=== PATIENT | male | born 1935 | race Caucasian/White ===

== ENCOUNTER 2016-11-13 14:42 | Inpatient (IN) ==
[2016-11-13 15:42] LABS: Basophils % 0.4 % (0.0-0.8); Eosinophils # 0.1 10*3/uL (0.0-0.87); Eosinophils % 1.3 % (0.00-10.9); Hematocrit 39.7 VOL% (42.0-52.0); Hemoglobin 13.1 GM/DL (14.0-18.0); Immature Granulocytes % 0.7 %; Immature Granulocytes Absolute 0.06 #; Lymphocytes # 2.6 10*3/uL (1.4-4.0); Lymphocytes % 28.7 % (21.2-54.2); Mean Corpuscular Hemoglobin 29 PG (27-34); Mean Corpuscular Volume 88.6 FL (87-102); Mean Platelet Volume 10.3 FL (9.6-12.0); Monocytes % 10.8 % (1.7-12.7); Neutrophils # 5.2 10*3/uL (1.4-7.4); Neutrophils % 58.1 % (38.7-73.9); Platelet Count 270 T/CUMM (130-400); Red Blood Count 4.48 MC/CUMM (3.8-5.5); Red Cell Distribution Width 13.9 % (9.3-17.3); White Blood Count 8.9 T/CUMM (4-12)
--- NOTE | 2016-11-13 16:51 | Emergency Department Note ---
Arrival - Arrival Chief Complaint: Extremity Problem Stated Complaint: INFLAMMED TOE ED Nursing Triage Note: c/o Having right great toe pain.,states he was evaluated by last evening and was told that he could be admitted last evening or try going home., states the pain is hurting worse today., patient has toe wrapped at time of triage., 3+ right pedal pulse noted at time of triage., Mode of Arrival: Wheelchair Limitations: No Limitations Source: Patient Time Seen by Provider: 11/13/16 16:51 - History of Present Illness HPI Narrative: This 81-year-old white male presents with a history of persistent painful diabetic ulcer at the site of right great toe nail removal for admission to Dr. Nunes's service for further evaluation and treatment. The patient originally wore a pair of shoes to [employer] that he had not worn for some time only to come home and find a bruise underneath the toenail which progressed to an infection which progressed to removal of the toenail which progressed to the current state of affairs. He denies any chills or fever with this situation. The patient is diabetic but denies any significant problems with diabetic control during this ordeal. Currently appears medically stable. Allergies/Adverse Reactions: Allergies Allergy/AdvReac Type Severity Reaction Status Date / Time covert Allergy Severe ANAPHYLAXIS Uncoded 11/13/16 14:54 Home Medications: Home Medications Medication Instructions Recorded Confirmed Type Amitriptyline [Elavil] 75 mg PO BEDTIME 12/24/14 12/24/14 History Aspirin [Ecotrin] 325 mg PO DAILY 12/24/14 12/24/14 History Carvedilol 25 mg PO BID 12/24/14 12/24/14 History Clopidogrel [Plavix] 75 mg PO DAILY 12/24/14 12/24/14 History Furosemide Tab [Lasix Tab] 40 mg PO DAILY 12/24/14 12/24/14 History Insulin Lispro Prot/Lisp 75/25 75 unit SUBCUT BIDAC 12/24/14 12/24/14 History [HumaLOG Mix 75/25] Levothyroxine Tab [Synthroid Tab] 25 mcg PO DAILY@0700 12/24/14 12/24/14 History Lisinopril 2.5 mg PO BEDTIME 12/24/14 12/24/14 History Lovastatin 40 mg PO BEDTIME 12/24/14 12/24/14 History Magnesium Oxide [Magox 400] 400 mg PO BID 12/24/14 12/24/14 History Niacin [Slo-Niacin] 500 mg PO BID 12/24/14 12/24/14 History Nitroglycerin [Nitroglycerin SL 0.4 mg SL Q5M PRN 12/24/14 12/24/14 History Tab] [place]-3 Fatty Acids [Fish Oil] 1,000 mg PO BID 12/24/14 12/24/14 History Ranitidine Tab [Zantac Tab] 150 mg PO DAILY 12/24/14 12/24/14 History Spironolactone [Aldactone] 12.5 mg PO DAILY 12/24/14 12/24/14 History Warfarin Sodium 7.5 mg PO DAILY 12/24/14 12/24/14 History Diltiazem Cd Cap [Cardizem CD] 120 mg PO DAILY #30 capsule 01/01/15 Rx Levofloxacin Tab [Levaquin Tab] 500 mg PO DAILY #7 tablet 01/01/15 Rx Warfarin [Coumadin] 7.5 mg PO DAILY@1800 tablet 01/01/15 Rx Review of System - Review of System 12 point system: reviewed and no additional remarkable complaints except as stated - Review of System Constitutional: Present: as per HPI Musculoskeletal: Present: as per HPI Skin: Present: as per HPI Endocrine: Present: as per HPI Medical,Surgical,& Family Hx - Medical History Cardio: History of: Cardiac Dysrhythmia, CHF, CAD, Hypertension, ID, PVD ( stents in his lower extremities), Cardiovascular Problems HEENT: History of: Eye Problem Endocrine: History of: Diabetes Mellitus (IDDM), Dyslipidemia, Thyroid Disorder Genitourinary: History of: Kidney Stones, Prostate Problems Gastrointestinal: History of: Hemorrhoids, Polyps Other: History of: Cancer (prostate) - Surgical History Cardiac Surgeries: Sugical HX of: Cardiac Catheterization, Cardiac Surgery HEENT Surgeries: Surgical HX of: Eye Surgery (cataracts) Abdominal Surgeries: Surgical HX of: Cholecystectomy, Colonoscopy, Hernia Repair Orthopedic Surgeries: Surgical HX of;: Total Knee Replacement (right knee replacement May 2014) - Family History Family History: Reports;: Family Cancer (sister, brother), Family Heart Disease (brother, mother), Family Hypertension (brother, mother) Denies;: Family Anesthesia Reaction, Family Psychiatric Problems, Family Stroke - Social History Smoking Status: Former smoker Frequency of Alcohol Use: None Type of Drug Use: None Exam Physical Examination: GENERAL: Well developed, well nourished elderly white male in no acute distress. HEENT: Normocephalic. No trauma. Moist mucous membranes. EOMI. PERRLA. ENT NML NECK: Supple. No adenopathy. CARDIAC: Regular. No murmurs. Heart rate 92 CHEST: Clear to auscultation. No respiratory distress. O2 sat 96% ABDOMEN: Soft. Nontender. Active bowel sounds. EXTREMITIES: No trauma. Normal ROM. No pedal edema. Distal pulses intact. Clarita size ulcer on the volar surface of the right great toe nailbed SKIN: No diaphoresis. No rash. As above NEURO: Alert. Neuro intact. No focal deficits. Vital Signs: Vital Signs Temperature 98.0 F 11/13/16 16:21 Pulse Rate 89 11/13/16 16:21 Respiratory Rate 18 11/13/16 16:21 Blood Pressure 151/87 11/13/16 16:21 O2 Sat by Pulse Oximetry 100 11/13/16 16:21 Course - Reevaluation(s) Reevaluation #1: Patient presents for admission Results - Labs CBC & BMP: 11/13/16 15:31 Disposition Clinical Impression: Diabetic toe Case discussed with: patient, patient's family Disposition: Still a Patient Condition: Stable Time of Disposition: 16:57
[2016-11-13] MEDS ORDERED: DEXTROSE 50% 25 GM/50 ML SYRINGE IV PRN (16:59)
[2016-11-13] MEDS ORDERED: GLUCAGON 1 MG VIAL IM PRN (16:59)
[2016-11-13] MEDS ORDERED: ONDANSETRON 4 MG/2 ML VIAL IV PRN (16:59)
[2016-11-13] MEDS ORDERED: VANCOMYCIN INJ 1,000 MG in SODIUM CHLORIDE 0.9% 250 ML IV SCH (17:00)
[2016-11-13 17:11] LABS: Albumin 3.4 G/DL (3.4-5.0); Bilirubin,Total 0.4 MG/DL (0.2-1.0); Calcium 9.1 MG/DL (8.5-10.1); Osmolality,Calculated 283.7 MOS/KG (273-304); Potassium 4.5 MMOL/L (3.5-5.1); Total Protein 8.1 G/DL (6.4-8.3)
--- NOTE | 2016-11-13 18:34 | XRay Report ---
History: Great toe pain and soft tissue ulcer Date: 11/13/2016 Study: Right foot 3 views Comparison exam: No previous There are some small focal patchy areas of lytic change of the tuft of the distal phalanx of the great toe compatible with osteomyelitis. There is soft tissue swelling in this area. There is no radiopaque foreign body. There is mild plantar calcaneal spur formation. There is moderate regional arterial vascular calcification. Impression: Evidence of osteomyelitis involving the tuft of the distal phalanx of the great toe PROCEDURE INTERPRETED AT [facility] DEPARTMENT OF RADIOLOGY Final Report Signed by: Dr. Amarilys Child
[2016-11-13 19:29] LABS: INR 1.9
[2016-11-13 19:33] LABS: PT Patient Result 21.2 SECS
[2016-11-13] MEDS ORDERED: WARFARIN 7.5 MG TABLET PO SCH (21:00)
[2016-11-13] MEDS: PIPERACILLIN/TAZOBACTAM 3,375 MG in SODIUM CHLORIDE 0.9% 100 ML IV SCH (21:22)
[2016-11-13] MEDS: INSULIN REGULAR 100 UNIT/ML SUBCUT SCH (21:28)
[2016-11-13] MEDS: AMITRIPTYLINE 75 MG TABLET PO SCH (21:29)
[2016-11-13] MEDS: CARVEDILOL 25 MG TABLET PO SCH (21:29)
[2016-11-13] MEDS: LOVASTATIN 20 MG TABLET PO SCH (21:29)
[2016-11-13] MEDS: FAMOTIDINE 20 MG TABLET PO SCH (21:29)
[2016-11-14] MEDS: VANCOMYCIN INJ 1,500 MG in SODIUM CHLORIDE 0.9% 500 ML IV SCH ×2 (01:19→17:16)
[2016-11-14] MEDS: PIPERACILLIN/TAZOBACTAM 3,375 MG in SODIUM CHLORIDE 0.9% 100 ML IV SCH ×2 (04:07→12:26)
[2016-11-14 08:04] LABS: Basophils % 0.5 % (0.0-0.8); Eosinophils # 0.1 10*3/uL (0.0-0.87); Eosinophils % 1.2 % (0.00-10.9); Hemoglobin 11.3 GM/DL (14.0-18.0); Immature Granulocytes % 0.8 %; Immature Granulocytes Absolute 0.07 #; Lymphocytes # 2.2 10*3/uL (1.4-4.0); Lymphocytes % 25.3 % (21.2-54.2); Mean Corpuscular HGB Conc 33.2 GM/DL (32-36); Mean Corpuscular Hemoglobin 29 PG (27-34); Mean Corpuscular Volume 88.3 FL (87-102); Mean Platelet Volume 10.9 FL (9.6-12.0); Monocytes % 12.1 % (1.7-12.7); Neutrophils # 5.2 10*3/uL (1.4-7.4); Neutrophils % 60.1 % (38.7-73.9); Platelet Count 238 T/CUMM (130-400); Red Blood Count 3.85 MC/CUMM (3.8-5.5); Red Cell Distribution Width 14.1 % (9.3-17.3); White Blood Count 8.6 T/CUMM (4-12)
[2016-11-14] MEDS: INSULIN LISPRO PROTAMINE/LISPRO 75/25 100 UNIT/ML SUBCUT SCH ×2 (08:10→17:15)
[2016-11-14] MEDS: INSULIN REGULAR 100 UNIT/ML SUBCUT SCH ×4 (08:11→21:50)
[2016-11-14] MEDS: FUROSEMIDE 40 MG TABLET PO SCH (08:12)
[2016-11-14] MEDS: CLOPIDOGREL 75 MG TABLET PO SCH (08:12)
[2016-11-14] MEDS: ASPIRIN CHEW 81 MG TABLET PO SCH (08:12)
[2016-11-14] MEDS: FAMOTIDINE 20 MG TABLET PO SCH ×2 (08:13→21:50)
[2016-11-14] MEDS: LISINOPRIL 2.5 MG TABLET PO SCH (08:13)
[2016-11-14] MEDS: SPIRONOLACTONE 25 MG TABLET PO SCH (08:13)
[2016-11-14] MEDS: CARVEDILOL 25 MG TABLET PO SCH ×2 (08:13→21:50)
[2016-11-14 08:22] LABS: Partial Thromboplastin Time 37.6 SECS (0-40)
[2016-11-14 08:27] LABS: INR 1.9
[2016-11-14 08:28] LABS: PT Patient Result 20.8 SECS
--- NOTE | 2016-11-14 09:24 | General Surg History&Physical ---
Assessment and Plan - Time spent with patient Time spent with patient: Greater than 30 minutes (1) Osteomyelitis Status: Acute Assessment and plan: Patient appears to have osteomyelitis of his distal right first phalanx. I have discussed the fact that this will be very difficult to clear up and is not cleared up with several weeks of wound care and antibiotics. I have recommended amputation of his great toe. He is considering this. In the meantime we are treating him with IV antibiotics. Current Visit: Yes Qualifiers: Osteomyelitis location: unspecified site (2) Peripheral arterial disease Status: Acute Assessment and plan: He does not appear to be having acute ischemia. I will have Dr. Nunes see him tomorrow. Current Visit: No (3) Diabetes mellitus Status: Acute Assessment and plan: We will consult hospital medicine to help with management of his multiple medical problems including diabetes Current Visit: No Qualifiers: Diabetes mellitus type: type 2 History of Present Illness Chief complaint: Infected right great toe History of present illness: Mr. Santa is a 81 year old male Who for several weeks his had problems with infection in his right great toe. He was initially treated by Dr. Green with podiatry and had his toenail removed. He then had discoloration developed at the tip of this toe. He has had worsening redness in appearance to his toe over the last few days. I saw him a couple of days ago and offered admission at that time which he declined. His family brought him to the emergency room last night. I feel like his toe is looking worse. He has not had fever or chills. He does not really have any pain in his toe. Home Medications Medication Instructions Recorded Confirmed Type Aspirin [Ecotrin] 325 mg PO QAM 12/24/14 11/13/16 History Carvedilol 25 mg PO BID 12/24/14 11/13/16 History Clopidogrel [Plavix] 75 mg PO QAM 12/24/14 11/13/16 History Furosemide Tab [Lasix Tab] 40 mg PO QAM 12/24/14 11/13/16 History Insulin Lispro Prot/Lisp 75/25 82 unit SUBCUT BIDAC 12/24/14 11/13/16 History [HumaLOG Mix 75/25] Levothyroxine Tab [Synthroid Tab] 125 mcg PO DAILY@0700 12/24/14 11/14/16 History Lisinopril 2.5 mg PO BEDTIME 12/24/14 11/13/16 History Lovastatin 40 mg PO BEDTIME 12/24/14 11/13/16 History Magnesium Oxide [Magox 400] 400 mg PO BID 12/24/14 11/13/16 History Niacin [Slo-Niacin] 500 mg PO BID 12/24/14 11/13/16 History Nitroglycerin [Nitroglycerin SL 0.4 mg SL Q5M PRN 12/24/14 11/13/16 History Tab] [place]-3 Fatty Acids [Fish Oil] 1,000 mg PO BID 12/24/14 11/13/16 History Ranitidine Tab [Zantac Tab] 150 mg PO QAM 12/24/14 11/13/16 History Spironolactone [Aldactone] 12.5 mg PO QAM 12/24/14 11/13/16 History Warfarin [Coumadin] 7.5 mg PO DAILY@1800 tablet 01/01/15 11/13/16 Rx Amitriptyline HCl [Amitriptyline 100 mg PO BEDTIME 11/13/16 11/13/16 History HCl] Allergies Allergy/AdvReac Type Severity Reaction Status Date / Time covert Allergy Severe ANAPHYLAXIS Uncoded 11/13/16 14:54 Medical,Surgical,& Family Hx - Medical History Cardio: History of: Cardiac Dysrhythmia, CHF, CAD, Hypertension, [place], PVD ( stents in his lower extremities), Cardiovascular Problems Neurology: History of: Peripheral Neuropathy HEENT: History of: Eye Problem (CATARACTS REMOVED) Endocrine: History of: Diabetes Mellitus (IDDM), Dyslipidemia, Thyroid Disorder Genitourinary: History of: Kidney Stones, Prostate Problems (CANCER 2012) Gastrointestinal: History of: Hemorrhoids, Polyps Other: History of: Cancer (prostate 2012) - Surgical History Cardiac Surgeries: Sugical HX of: Cardiac Catheterization, Cardiac Surgery ( CABG X2) HEENT Surgeries: Surgical HX of: Eye Surgery (cataracts) Abdominal Surgeries: Surgical HX of: Appendectomy, Cholecystectomy, Colonoscopy , Hernia Repair Orthopedic Surgeries: Surgical HX of;: Total Knee Replacement (right knee replacement May 2014) - Family History Family History: Reports;: Family Cancer (sister, brother), Family Heart Disease (brother, mother), Family Hypertension (brother, mother) Denies;: Family Anesthesia Reaction, Family Psychiatric Problems, Family Stroke - Social History Smoking Status: Former smoker Frequency of Alcohol Use: None Type of Drug Use: None Exam - Constitutional Vitals: Period Temp Pulse Resp BP Sys/Reyes Pulse Ox Last 24 Hr 97.3 F-98.8 F 65-97 16-19 117-151/47-87 95-100 General appearance: no acute distress - Head Head exam: Present: normocephalic - Eye Eye exam: Absent: scleral icterus - ENT Mouth exam: Present: normal voice - Respiratory Respiratory exam: Present: clear to auscultation bilaterally. Absent: accessory muscle use - Cardiovascular Cardiovascular exam: Present: RRR - GI/Abdominal GI/Abdominal exam: Present: normal bowel sounds, soft. Absent: tenderness, rebound - Extremities Exam Extremities exam: Absent: edema - Neurological Exam Neurological exam: Present: alert, oriented X3. Absent: motor sensory deficit Speech: Present: normal - Skin Skin exam: Present: normal color - Constitutional Constitutional: Absent: chills, fever(s), weight loss - Cardiovascular Cardiovascular: Absent: chest pain at rest, chest pain with activity, dyspnea, dyspnea on exertion - Respiratory Respiratory: Absent: dyspnea, hemoptysis, dyspnea on exertion - Gastrointestinal Gastrointestinal: Absent: abdominal pain, hematemesis, hematochezia, nausea, vomiting, jaundice - Genitourinary Genitourinary: Absent: hematuria - Neurological Neurological: Absent: focal weakness, syncope - Endocrine Endocrine: Absent: polyuria Hematologic/Lymphatic: Absent: easy bleeding, easy bruising Results - Labs CBC & BMP: 11/14/16 07:14 11/13/16 15:31 Lab Results: I have reviewed the past 24 hour labs - Diagnostic Findings Procedure: X-ray: report reviewed by me
[2016-11-14] MEDS: LEVOTHYROXINE 25 MCG TABLET PO SCH (12:08)
--- NOTE | 2016-11-14 12:35 | Hospitalist Consult Note ---
Assessment and Plan (1) Diabetes mellitus Status: Acute Assessment and plan: Blood glucose levels have remained moderately elevated since admission. This may be largely attributed to the current infectious process. We will obtain hemoglobin A1c. We will continue Accu-Cheks with sliding scale coverage as previously ordered. We appreciate the consultation from Dr. Jha. We will continue to follow as the clinical encounter unfolds. Current Visit: No Qualifiers: Diabetes mellitus type: type 2 History of Present Illness - Consult Narrative Reason for consult: Medical management of diabetes History of present illness: This is a 81-year-old male who presented to the ED at [facility] on November 13, 2016 for the evaluation of inflamed right great toe. The patient has a medical history significant for diabetes mellitus, congestive heart failure, coronary artery disease, remote nicotine use, hypertension, myocardial infarction, peripheral vascular disease, hypothyroidism, renal calculi, hemorrhoids, and colon cancer. The patient has a surgical history significant for cardiac catheterization, cataract removal, cholecystectomy, colonoscopy, hernia repair, right total knee replacement, and femoral popliteal bypass with lower extremity stent placement. Apparently, the patient presented to the ED at [facility] after being instructed by his general surgeon Dr. Nunes for the further evaluation of his right great toe. The patient reported that he will repair she was discharged that he had not worn for some time which subsequently caused an area of dark discoloration underneath the toenail. This area progressed to an infection and subsequent toenail removal however, the right great toe failed to improve. He reported that he had been evaluated 1 day prior to presentation in the inpatient admission was suggested however, the patient refused. He will presented on yesterday reporting increase in right toe discomfort. The patient was assessed at the time of ED presentation. Labs were obtained which were significant for hemoglobin 13.1, hematocrit 39.7, BUN 26, creatinine 1.5, glucose 178, C-reactive protein 1.21, and globulin 4.7. Coagulation panel reported INR 1.9 and PTT at 21.2. X-ray of the right foot suggested evidence of osteomyelitis involving the tuft of the distal phalanx of the great toe. The patient was subsequently admitted to [facility] to the general surgery service for continuation of care. Today, hospital medicine has been consulted to assist in the management of the patient's diabetes during the clinical encounter. CC: Jonas Jha III., - Home Medications and Allergies Home Medications: Home Medications Medication Instructions Recorded Confirmed Type Aspirin [Ecotrin] 325 mg PO QAM 12/24/14 11/13/16 History Carvedilol 25 mg PO BID 12/24/14 11/13/16 History Clopidogrel [Plavix] 75 mg PO QAM 12/24/14 11/13/16 History Furosemide Tab [Lasix Tab] 40 mg PO QAM 12/24/14 11/13/16 History Insulin Lispro Prot/Lisp 75/25 82 unit SUBCUT BIDAC 12/24/14 11/13/16 History [HumaLOG Mix 75/25] Levothyroxine Tab [Synthroid Tab] 125 mcg PO DAILY@0700 12/24/14 11/14/16 History Lisinopril 2.5 mg PO BEDTIME 12/24/14 11/13/16 History Lovastatin 40 mg PO BEDTIME 12/24/14 11/13/16 History Magnesium Oxide [Magox 400] 400 mg PO BID 12/24/14 11/13/16 History Niacin [Slo-Niacin] 500 mg PO BID 12/24/14 11/13/16 History Nitroglycerin [Nitroglycerin SL 0.4 mg SL Q5M PRN 12/24/14 11/13/16 History Tab] [place]-3 Fatty Acids [Fish Oil] 1,000 mg PO BID 12/24/14 11/13/16 History Ranitidine Tab [Zantac Tab] 150 mg PO QAM 12/24/14 11/13/16 History Spironolactone [Aldactone] 12.5 mg PO QAM 12/24/14 11/13/16 History Warfarin [Coumadin] 7.5 mg PO DAILY@1800 tablet 01/01/15 11/13/16 Rx Amitriptyline HCl [Amitriptyline 100 mg PO BEDTIME 11/13/16 11/13/16 History HCl] Allergies/Adverse Reactions: Allergies Allergy/AdvReac Type Severity Reaction Status Date / Time covert Allergy Severe ANAPHYLAXIS Uncoded 11/13/16 14:54 Medical,Surgical,& Family Hx - Medical History Cardio: History of: Cardiac Dysrhythmia, CHF, CAD, Hypertension, [place], PVD ( stents in his lower extremities), Cardiovascular Problems Neurology: History of: Peripheral Neuropathy HEENT: History of: Eye Problem (CATARACTS REMOVED) Endocrine: History of: Diabetes Mellitus (IDDM), Dyslipidemia, Thyroid Disorder Genitourinary: History of: Kidney Stones, Prostate Problems (CANCER 2012) Gastrointestinal: History of: Hemorrhoids, Polyps Other: History of: Cancer (prostate 2012) - Surgical History Cardiac Surgeries: Sugical HX of: Cardiac Catheterization, Cardiac Surgery ( CABG X2) HEENT Surgeries: Surgical HX of: Eye Surgery (cataracts) Abdominal Surgeries: Surgical HX of: Appendectomy, Cholecystectomy, Colonoscopy , Hernia Repair Orthopedic Surgeries: Surgical HX of;: Total Knee Replacement (right knee replacement May 2014) - Family History Family History: Reports;: Family Cancer (sister, brother), Family Heart Disease (brother, mother), Family Hypertension (brother, mother) Denies;: Family Anesthesia Reaction, Family Psychiatric Problems, Family Stroke - Social History Smoking Status: Former smoker Have you smoked in the last 12 months: No Frequency of Alcohol Use: None Type of Drug Use: None Marital Status: Lives With:: Spouse Functional capacity: independent ambulation 12 point system: reviewed and no additional remarkable complaints except as stated Exam - Constitutional Vitals: Period Temp Pulse Resp BP Sys/Reyes Pulse Ox Last 24 Hr 97.3 F-98.8 F 65-97 16-19 117-151/47-87 95-100 Results - Labs CBC & BMP: 11/14/16 07:14 11/13/16 15:31 Lab Results: I have reviewed the past 24 hour labs
[2016-11-14] MEDS: LOVASTATIN 20 MG TABLET PO SCH (17:15)
[2016-11-14] MEDS: AMITRIPTYLINE 75 MG TABLET PO SCH (21:50)
[2016-11-15] MEDS: PIPERACILLIN/TAZOBACTAM 3,375 MG in SODIUM CHLORIDE 0.9% 100 ML IV SCH ×4 (00:04→22:46)
[2016-11-15 06:31] LABS: INR 1.9
[2016-11-15 06:32] LABS: PT Patient Result 21.5 SECS
--- NOTE | 2016-11-15 07:41 | General Surgery Progress Note ---
Assessment and Plan (1) Osteomyelitis Status: Acute Assessment and plan: Patient appears to have osteomyelitis of his distal right first phalanx. I have discussed the fact that this will be very difficult to clear up and is not cleared up with several weeks of wound care and antibiotics. I have recommended amputation of his great toe. He is considering this. In the meantime we are treating him with IV antibiotics. 11/15: He feels well. He does not want me doing surgery on him today. He would like to see Dr. Willis as he was originally scheduled instead. Current Visit: Yes Qualifiers: Osteomyelitis location: unspecified site (2) Peripheral arterial disease Status: Acute Assessment and plan: He does not appear to be having acute ischemia. I will have Dr. Nunes see him tomorrow. Current Visit: No (3) Diabetes mellitus Status: Acute Assessment and plan: We will consult hospital medicine to help with management of his multiple medical problems including diabetes Current Visit: No Qualifiers: Diabetes mellitus type: type 2 Subjective Patient reports: Present: feels better, pain is less. Absent: fever Exam - Constitutional Vitals: Period Temp Pulse Resp BP Sys/Reyes Pulse Ox Last 24 Hr 9.0 F-98.4 F 62-104 18-20 121-152/63-85 96-100 General appearance: no acute distress - Respiratory Respiratory exam: Absent: accessory muscle use - Extremities Exam Extremities exam: Absent: edema Results - Labs CBC & BMP: 11/14/16 07:14 11/13/16 15:31
--- NOTE | 2016-11-15 08:23 | Internal Medicine Consult Note ---
Assessment and Plan (1) Osteomyelitis Status: Acute Assessment and plan: 81-year-old male admitted to acute care * Osteomyelitis of the distal phalanx of right great toe. Patient has been started on antibiotics. He has been on Plavix, Coumadin and aspirin. His Coumadin is being held. He is on broad-spectrum antibiotics * Peripheral vascular disease. Patient has history of severe PVD and will be seen by Dr. Willis * Hypertension. Blood pressure is stable * Coronary artery disease. Will consult cardiology for perioperative management. He has significant coronary artery disease * Atrial fibrillation. Patient appears to be in sinus rhythm * Diabetes. He will be continued on his insulin. Will also keep him on sliding scale * Hypothyroidism. Continue current treatment * Discussed in detail with patient his and daughter. Current Visit: Yes Qualifiers: Osteomyelitis location: unspecified site (2) Coronary artery disease Status: Acute Current Visit: No (3) Diabetes mellitus Status: Acute Current Visit: No Qualifiers: Diabetes mellitus type: type 2 (4) Fibrillation, atrial Status: Acute Current Visit: No (5) Hyperlipidemia Status: Acute Current Visit: No (6) Hypertension Status: Acute Current Visit: No (7) Peripheral arterial disease Status: Acute Current Visit: No History of Present Illness - Data of Consult Patient: known to practice within the last 3 years - Consult Narrative Reason for consult: Medical management History of present illness: Mr. Santa is a 81 year old male with history of multiple medical problems including coronary artery disease, chronic atrial fibrillation, type 2 insulin- dependent diabetes, hypertension, peripheral vascular disease, hyperlipidemia who was admitted to acute care with infected right great toe. Patient has been getting treatment by third cook for his right big toe. It has gradually gotten worse over last several days. He came to the emergency room and was evaluated and was found to have osteomyelitis in the distal phalanx of great toe. He denies any chest pain or shortness of breath. He denies any nausea vomiting or diarrhea. He denies any fever or chills. He has developed discoloration at the tip of the toe. He also had worsening redness in his stool over last several days. Patient usually is quite active but has slowed down over last few months. He has increasing fatigue and tiredness. Patient has bilateral stents in both lower extremities. He has undergone thrombectomies and embolectomies on both lower extremities. Patient lives at home with his . He is a former smoker CC: Jonas Jha III., - Home Medications and Allergies Home Medications: Home Medications Medication Instructions Recorded Confirmed Type Aspirin [Ecotrin] 325 mg PO QAM 12/24/14 11/13/16 History Carvedilol 25 mg PO BID 12/24/14 11/13/16 History Clopidogrel [Plavix] 75 mg PO QAM 12/24/14 11/13/16 History Furosemide Tab [Lasix Tab] 40 mg PO QAM 12/24/14 11/13/16 History Insulin Lispro Prot/Lisp 75/25 82 unit SUBCUT BIDAC 12/24/14 11/13/16 History [HumaLOG Mix ] Levothyroxine Tab [Synthroid Tab] 125 mcg PO DAILY@0700 12/24/14 11/14/16 History Lisinopril 2.5 mg PO BEDTIME 12/24/14 11/13/16 History Lovastatin 40 mg PO BEDTIME 12/24/14 11/13/16 History Magnesium Oxide [Magox 400] 400 mg PO BID 12/24/14 11/13/16 History Niacin [Slo-Niacin] 500 mg PO BID 12/24/14 11/13/16 History Nitroglycerin [Nitroglycerin SL 0.4 mg SL Q5M PRN 12/24/14 11/13/16 History Tab] [place]-3 Fatty Acids [Fish Oil] 1,000 mg PO BID 12/24/14 11/13/16 History Ranitidine Tab [Zantac Tab] 150 mg PO QAM 12/24/14 11/13/16 History Spironolactone [Aldactone] 12.5 mg PO QAM 12/24/14 11/13/16 History Warfarin [Coumadin] 7.5 mg PO DAILY@1800 tablet 01/01/15 11/13/16 Rx Amitriptyline HCl [Amitriptyline 100 mg PO BEDTIME 11/13/16 11/13/16 History HCl] Allergies/Adverse Reactions: Allergies Allergy/AdvReac Type Severity Reaction Status Date / Time covert Allergy Severe ANAPHYLAXIS Uncoded 11/13/16 14:54 12 point system: reviewed and no additional remarkable complaints except as stated (As mentioned in HPI) Medical,Surgical,& Family Hx - Medical History Cardio: History of: Cardiac Dysrhythmia, CHF, CAD, Hypertension, [place], PVD ( stents in his lower extremities), Cardiovascular Problems Neurology: History of: Peripheral Neuropathy HEENT: History of: Eye Problem (CATARACTS REMOVED) Endocrine: History of: Diabetes Mellitus (IDDM), Dyslipidemia, Thyroid Disorder Genitourinary: History of: Kidney Stones, Prostate Problems (CANCER 2012) Gastrointestinal: History of: Hemorrhoids, Polyps Other: History of: Cancer (prostate 2012) - Surgical History Cardiac Surgeries: Sugical HX of: Cardiac Catheterization, Cardiac Surgery ( CABG X2) HEENT Surgeries: Surgical HX of: Eye Surgery (cataracts) Abdominal Surgeries: Surgical HX of: Appendectomy, Cholecystectomy, Colonoscopy , Hernia Repair Orthopedic Surgeries: Surgical HX of;: Total Knee Replacement (right knee replacement May 2014) - Family History Family History: Reports;: Family Cancer (sister, brother), Family Heart Disease (brother, mother), Family Hypertension (brother, mother) Denies;: Family Anesthesia Reaction, Family Psychiatric Problems, Family Stroke - Social History Smoking Status: Former smoker Frequency of Alcohol Use: None Type of Drug Use: None Marital Status: Lives With:: Spouse Functional capacity: independent ambulation Exam (Progress Note) - Constitutional Vitals: Period Temp Pulse Resp BP Sys/Reyes Pulse Ox Last 24 Hr 9.0 F-98.4 F 62-104 18-20 121-152/63-80 96-100 Exam: Examination: GENERAL: NAD. HEENT: PERRLA. EOMI. Mucous membranes are moist. NECK: Neck is supple. No JVD. No carotid bruit. No thyromegaly. CVS: Regular rate and rhythm. S1 and S2 are normal. Systolic ejection murmur at left lower sternal border RESPIRATORY: Lungs are clear. No rales or rhonchi. ABDOMEN: Soft and nontender. Bowel sounds are present. No hepatosplenomegaly. EXT: No edema. Peripheral pulses are present. PRESCHOOL ASSISTANT: Patient is awake, alert and oriented to time place and person. Cranial nerves II through XII are grossly intact. Motor 5/5 SKIN: Warm and dry. Small ulcer on the right great toe nail bed. There is blackish discoloration of the tip of the toe along with mild erythema MSK: No obvious deformity. Results - Labs CBC & BMP: 11/14/16 07:14 11/13/16 15:31 Lab Results: I have reviewed the past 24 hour labs
[2016-11-15] MEDS: INSULIN REGULAR 100 UNIT/ML SUBCUT SCH ×4 (08:33→20:43)
[2016-11-15] MEDS: FAMOTIDINE 20 MG TABLET PO SCH ×2 (09:00→20:44)
[2016-11-15] MEDS: SPIRONOLACTONE 25 MG TABLET PO SCH (09:00)
[2016-11-15] MEDS: CLOPIDOGREL 75 MG TABLET PO SCH (09:00)
[2016-11-15] MEDS: FUROSEMIDE 40 MG TABLET PO SCH (09:00)
[2016-11-15] MEDS: LEVOTHYROXINE 25 MCG TABLET PO SCH (09:00)
[2016-11-15] MEDS: ASPIRIN CHEW 81 MG TABLET PO SCH (09:00)
[2016-11-15] MEDS: CARVEDILOL 25 MG TABLET PO SCH ×2 (09:02→20:44)
[2016-11-15] MEDS: LISINOPRIL 2.5 MG TABLET PO SCH (09:03)
[2016-11-15] MEDS: INSULIN LISPRO PROTAMINE/LISPRO 75/25 100 UNIT/ML SUBCUT SCH ×2 (09:07→18:11)
--- NOTE | 2016-11-15 09:13 | Vascular Surgery Consult Note ---
History of Present Illness Chief complaint: diabetic pvd with infection right first toe History of present illness: Mr. Santa is a 81 year old male Abhi Santa is a 81-year-old man and I have treated for a number of years with peripheral vascular occlusive disease associated with diabetes. His primary issues have been involving the left leg where he has had stents and thrombectomies on several occasions. We obtain lower arterial Dopplers at the office approximately a year ago that indicated noncompressible vessels but with normal flows on the right side with an MARTI of 1.39 the left side was completely noncompressible but showed a reasonable toe pressure. He has developed ulceration and slowly progressive gangrenous changes of the distal right first toe over the last 4 weeks. Apparently started with a small injury that has failed to heal despite multiple antibiotics and debridements by Dr. Torres. This was noted to be worsening last Tuesday the patient initially did not wish to be hospitalized but did come back and Tuesday. Dr. Abhijeet Valverde has had a hospitalized over the weekend on IV vancomycin and PIP her cell and and apparently there is some improvement in the swelling and erythema of the toe but we still have clear gangrenous changes of the very distal first toe. X-ray does suggest osteomyelitis of the distal tuft of the first toe as well but there does not appear to be extensive osteomyelitis involving the entire distal digit and nothing in the proximal digit. His nail has been removed and this nail bed is black and dry as is the medial aspect of the distal first toe there is some thickened callus surrounding the distal toe there is erythema but not a great deal of swelling. Does not appear to be involving the metatarsal area at all. His foot is warm and reasonably perfused but does not have palpable pedal pulses. At this point in time I think the most appropriate action will be formal debridement of the distal first toe with amputation of the distal digit probably leaving this open with wound care and hopefully we can obtain healing over a period of time by secondary intention. I discussed this at length with Mr. Santa is and daughter explaining what the problem is and what the treatment options are available have certainly explained the potential for progression of the infection and gangrene and there is some potential risk of further amputation being required there is also a long-term potential for amputation of the lower leg although I think we will be able to preserve his foot and probably most of the first toe. I have offered to do the surgery today I do not believe further reversal of his anticoagulation is necessary or indicated he has had breakfast but I think we can do this with a straight toe block he agrees with this plan. Home Medications Medication Instructions Recorded Confirmed Type Aspirin [Ecotrin] 325 mg PO QAM 12/24/14 11/13/16 History Carvedilol 25 mg PO BID 12/24/14 11/13/16 History Clopidogrel [Plavix] 75 mg PO QAM 12/24/14 11/13/16 History Furosemide Tab [Lasix Tab] 40 mg PO QAM 12/24/14 11/13/16 History Insulin Lispro Prot/Lisp 75/25 82 unit SUBCUT BIDAC 12/24/14 11/13/16 History [HumaLOG Mix 75/25] Levothyroxine Tab [Synthroid Tab] 125 mcg PO DAILY@0700 12/24/14 11/14/16 History Lisinopril 2.5 mg PO BEDTIME 12/24/14 11/13/16 History Lovastatin 40 mg PO BEDTIME 12/24/14 11/13/16 History Magnesium Oxide [Magox 400] 400 mg PO BID 12/24/14 11/13/16 History Niacin [Slo-Niacin] 500 mg PO BID 12/24/14 11/13/16 History Nitroglycerin [Nitroglycerin SL 0.4 mg SL Q5M PRN 12/24/14 11/13/16 History Tab] [place]-3 Fatty Acids [Fish Oil] 1,000 mg PO BID 12/24/14 11/13/16 History Ranitidine Tab [Zantac Tab] 150 mg PO QAM 12/24/14 11/13/16 History Spironolactone [Aldactone] 12.5 mg PO QAM 12/24/14 11/13/16 History Warfarin [Coumadin] 7.5 mg PO DAILY@1800 tablet 01/01/15 11/13/16 Rx Amitriptyline HCl [Amitriptyline 100 mg PO BEDTIME 11/13/16 11/13/16 History HCl] Allergies Allergy/AdvReac Type Severity Reaction Status Date / Time covert Allergy Severe ANAPHYLAXIS Uncoded 11/13/16 14:54 Medical,Surgical,& Family Hx - Medical History Cardio: History of: Cardiac Dysrhythmia, CHF, CAD, Hypertension, [place], PVD ( stents in his lower extremities), Cardiovascular Problems Neurology: History of: Peripheral Neuropathy HEENT: History of: Eye Problem (CATARACTS REMOVED) Endocrine: History of: Diabetes Mellitus (IDDM), Dyslipidemia, Thyroid Disorder Genitourinary: History of: Kidney Stones, Prostate Problems (CANCER 2012) Gastrointestinal: History of: Hemorrhoids, Polyps Other: History of: Cancer (prostate 2012) - Surgical History Cardiac Surgeries: Sugical HX of: Cardiac Catheterization, Cardiac Surgery ( CABG X2) HEENT Surgeries: Surgical HX of: Eye Surgery (cataracts) Abdominal Surgeries: Surgical HX of: Appendectomy, Cholecystectomy, Colonoscopy , Hernia Repair Orthopedic Surgeries: Surgical HX of;: Total Knee Replacement (right knee replacement May 2014) - Family History Family History: Reports;: Family Cancer (sister, brother), Family Heart Disease (brother, mother), Family Hypertension (brother, mother) Denies;: Family Anesthesia Reaction, Family Psychiatric Problems, Family Stroke - Social History Smoking Status: Former smoker Frequency of Alcohol Use: None Type of Drug Use: None Exam - Constitutional Vitals: Period Temp Pulse Resp BP Sys/Reyes Pulse Ox Last 24 Hr 9.0 F-98.4 F 62-104 18-20 121-152/63-80 96-100 Results - Labs CBC & BMP: 11/14/16 07:14 11/13/16 15:31
[2016-11-15] MEDS ORDERED: BUPIVACAINE 0.5% 50 ML VIAL ONE (10:03)
[2016-11-15] MEDS ORDERED: GLUCAGON 1 MG VIAL IM PRN (11:10)
[2016-11-15] MEDS ORDERED: DEXTROSE 50% 25 GM/50 ML VIAL IV PRN (11:10)
--- NOTE | 2016-11-15 11:19 | Operative Note ---
Date of procedure: 11/15/16 Procedure: Dr. Nunes operative report Abhi got his heel. Surgeon: Des Anesthesia: Local 0.5% Marcaine plain Preoperative diagnosis: Diabetic infection of the distal right first toe Postoperative diagnosis: Same Procedure: Debridement and amputation distal digit right first toe. 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 He has known diabetic peripheral vascular disease but has had peripheral perfusion studies that indicated reasonable flow. I have recommended debridement on amputation of the distal digit for control of infection explained the alternatives risks and complications which he understands fully and accepts Description of the procedure patient's brought to the operating room and placed in supine position the foot was prepped with alcohol and a digital block using 20 cc of 0.5% plain Marcaine is made around the right first toe the foot is then prepped with Betadine soap and solution. Notably there is dry gangrene involving the nailbed and just on the medial aspect of the toe there is thickened skin surrounding the toe with evidence of cellulitis but reasonable perfusion. I began by amputating through the proximal nail bed finding that the distal tuft of the digit was in fact quite soft and was actually debrided with a 15 scalpel I removed grossly necrotic tissue of the nailbed and just on the medial aspect and then remove the tuft of the distal digit back to healthy bone. There was active bleeding from the tissues are removed all skin cultures were taken of the wound as well as sending bone for tissue culture. All grossly necrotic tissue and grossly infected tissue was removed which basically is a nailbed in the tuft of the digit and surrounding skin. There is active bleeding from the edges this is controlled with cautery the foot is then irrigated with peroxide and saline I packed Surgicel in the bed and then the wound and then apply gauze fluffs and cast padding blood loss is estimated at 10 cc sponge needle aspirate counts are correct and patient taken to recovery in stable condition. Surgeon / Physician: Vinayak Nunes Results - Labs CBC & BMP: 11/14/16 07:14 11/13/16 15:31 Discharge Plan - Discharge Medications No Action Spironolactone [Aldactone] 12.5 mg PO QAM Ranitidine Tab [Zantac Tab] 150 mg PO QAM Nitroglycerin [Nitroglycerin SL Tab] 0.4 mg SL Q5M PRN PRN Reason: Chest Pain Clopidogrel [Plavix] 75 mg PO QAM Levothyroxine Tab [Synthroid Tab] 125 mcg PO DAILY@0700 Furosemide Tab [Lasix Tab] 40 mg PO QAM [place]-3 Fatty Acids [Fish Oil] 1,000 mg PO BID Niacin [Slo-Niacin] 500 mg PO BID Magnesium Oxide [Magox 400] 400 mg PO BID Lovastatin 40 mg PO BEDTIME Lisinopril 2.5 mg PO BEDTIME Insulin Lispro Prot/Lisp 75/25 [HumaLOG Mix 75/25] 82 unit SUBCUT BIDAC Carvedilol 25 mg PO BID Aspirin [Ecotrin] 325 mg PO QAM Warfarin [Coumadin] 7.5 mg PO DAILY@1800 tablet Amitriptyline HCl [Amitriptyline HCl] 100 mg PO BEDTIME - Follow Up or Referral - Forms/Instructions
[2016-11-15] MEDS: VANCOMYCIN INJ 1,500 MG in SODIUM CHLORIDE 0.9% 500 ML IV SCH (14:52)
--- NOTE | 2016-11-15 15:26 | Cardiology Consult Note ---
Patricia Khan April, RN, am scribing for, and in the presence of, Kelby Perez MD 15:25. Assessment and Plan - Time spent with patient Time spent with patient: Greater than 30 minutes (Due to assessment, planning, documentation, medication review) (1) Status post amputation of right great toe Status: Acute Assessment and plan: November 15, 2016 he underwent debridement amputation of distal digit of right great toe by Dr. Nunes. Current Visit: Yes (2) Coronary artery disease Status: Chronic Assessment and plan: This is stable. He denies any chest pain. Current Visit: Yes Qualifiers: Coronary Disease-Associated Artery/Lesion type: bypass graft [place] vs. transplanted heart: [place] heart Associated angina: without angina Qualified Code(s): I25.810 - Atherosclerosis of coronary artery bypass graft(s) without angina pectoris (3) Diabetes mellitus Status: Chronic Assessment and plan: Internal medicine is managing. Current Visit: No Qualifiers: Diabetes mellitus type: type 2 (4) Fibrillation, atrial Status: Chronic Assessment and plan: This is chronic and currently rate controlled. He is anticoagulated on warfarin and on carvedilol for rate control. Current Visit: No (5) Hyperlipidemia Status: Chronic Assessment and plan: He is on lovastatin 40 mg daily at home, this has been continued. Current Visit: Yes (6) Hypertension Status: Chronic Assessment and plan: Blood pressures have been stable, lisinopril has been continued. Current Visit: Yes (7) Chronic anticoagulation Status: Chronic Assessment and plan: He is anticoagulated on warfarin for atrial fibrillation. INR today is 1.9. Current Visit: Yes History of Present Illness - Data of Consult Patient: known to practice within the last 3 years Consult date: 11/15/16 Requesting Physician: Chance Moreira - Consult Narrative Reason for consult: History of CAD History of present illness: Pnp: Dr. Ocasio Mr. Santa is a 81 year old male with a history of CAD, hypertension, chronic atrial fibrillation, IDDM, PVD, hypothyroidism, diabetic neuropathy, and Burch's palsy. He is chronically anticoagulated on warfarin. He had heart cath August with 2 lesions in the circumflex stented, stent 1 lesion in the RCA and angioplasty of a more distal lesion. In December 2005 he had successful stenting of proximal circumflex and angioplasty of distal right coronary artery for in-stent restenosis. In January 2006 he had successful angioplasty of totally occluded distal right coronary artery. February 2010 and he underwent angioplasty of the LAD. He underwent CABG with reverse saphenous vein grafts to the right posterior descending and circumflex marginal coronary arteries and thrombo-endarterectomy of the right posterior descending coronary artery on January 31, 2006. He had a redo CABG with ROBLES to anterior descending artery. Echocardiogram May 22, 2014 with ejection fraction of 35-50%. He has also had stents placed in his legs. Other surgical history includes cholecystectomy, sinus surgery, right total knee, appendectomy, hernia repair, and bilateral cataract surgery. Family history includes heart disease in mother and brother and sister with cancer. He is a non-smoker, states he quit 50 years ago. Mr. Santa presented to the emergency department on November 13 with right great toe pain that he felt was related to an infected toe. He was taken to surgery today (November 15) by Dr. Nunes for debridement and amputation of distal digit of right first toe. Cardiology was asked to the patient because of his history of heart disease. He is being seen postoperatively. Dressing noted to right foot is dry and intact. He denies any chest pain, shortness of breath, palpitations, or dizziness. office director currently shows atrial fibrillation with heart rates in the 70s. Vital signs have been stable. INR today is 1.9. I have discussed in detail the particulars of this case and I have examined the patient and reviewed the patient's chart both current and old. I was directly involved in the patient's evaluation and management and I completely agree with Miguelina Gomez RN regarding this patient's evaluation and treatment plan. CC: Jonas Jha III., - Home Medications and Allergies Home Medications: Home Medications Medication Instructions Recorded Confirmed Type Aspirin [Ecotrin] 325 mg PO QAM 12/24/14 11/13/16 History Carvedilol 25 mg PO BID 12/24/14 11/13/16 History Clopidogrel [Plavix] 75 mg PO QAM 12/24/14 11/13/16 History Furosemide Tab [Lasix Tab] 40 mg PO QAM 12/24/14 11/13/16 History Insulin Lispro Prot/Lisp 75/25 82 unit SUBCUT BIDAC 12/24/14 11/13/16 History [HumaLOG Mix 75/25] Levothyroxine Tab [Synthroid Tab] 125 mcg PO DAILY@0700 12/24/14 11/14/16 History Lisinopril 2.5 mg PO BEDTIME 12/24/14 11/13/16 History Lovastatin 40 mg PO BEDTIME 12/24/14 11/13/16 History Magnesium Oxide [Magox 400] 400 mg PO BID 12/24/14 11/13/16 History Niacin [Slo-Niacin] 500 mg PO BID 12/24/14 11/13/16 History Nitroglycerin [Nitroglycerin SL 0.4 mg SL Q5M PRN 12/24/14 11/13/16 History Tab] [place]-3 Fatty Acids [Fish Oil] 1,000 mg PO BID 12/24/14 11/13/16 History Ranitidine Tab [Zantac Tab] 150 mg PO QAM 12/24/14 11/13/16 History Spironolactone [Aldactone] 12.5 mg PO QAM 12/24/14 11/13/16 History Warfarin [Coumadin] 7.5 mg PO DAILY@1800 tablet 01/01/15 11/13/16 Rx Amitriptyline HCl [Amitriptyline 100 mg PO BEDTIME 11/13/16 11/13/16 History HCl] Allergies/Adverse Reactions: Allergies Allergy/AdvReac Type Severity Reaction Status Date / Time covert Allergy Severe ANAPHYLAXIS Uncoded 11/13/16 14:54 - Constitutional Constitutional: Present: as per HPI - EENT Eyes: Present: requires corrective lense. Absent: blurry vision Ears: Present: decreased hearing. Absent: ear pain, tinnitus Nose, mouth and throat: Absent: dysphagia, epistaxis, headache(s), neck pain - Cardiovascular Cardiovascular: Absent: chest pain at rest, chest pain with activity, diaphoresis, dyspnea, dyspnea on exertion, edema, radiating jaw, neck or arm pain, lightheadedness, orthopnea, palpitations - Respiratory Respiratory: Absent: cough, dyspnea, hemoptysis, dyspnea on exertion, wheezing - Gastrointestinal Gastrointestinal: Absent: abdominal pain, constipation, diarrhea, hematemesis, hematochezia, melena, nausea, vomiting - Genitourinary Genitourinary: Absent: dysuria, nocturia - Musculoskeletal Musculoskeletal: Present: limited range of motion. Absent: back pain - Neurological Neurological: Absent: abnormal gait, confusion, dizziness, frequent falls, headache(s), syncope - Psychiatric Psychiatric: Absent: anxiety, depression - Hematologic/Lymphatic Hematologic/Lymphatic: Present: easy bruising. Absent: easy bleeding Medical,Surgical,& Family Hx - Medical History Cardio: History of: Cardiac Dysrhythmia, CHF, CAD, Hypertension, [place], PVD ( stents in his lower extremities), Cardiovascular Problems Neurology: History of: Peripheral Neuropathy HEENT: History of: Eye Problem (CATARACTS REMOVED) Endocrine: History of: Diabetes Mellitus (IDDM), Dyslipidemia, Thyroid Disorder Genitourinary: History of: Kidney Stones, Prostate Problems (CANCER 2012) Gastrointestinal: History of: Hemorrhoids, Polyps Other: History of: Cancer (prostate 2012) - Surgical History Cardiac Surgeries: Sugical HX of: Cardiac Catheterization, Cardiac Surgery ( CABG in 2005 with a redo in 2010) HEENT Surgeries: Surgical HX of: Eye Surgery (cataracts) Abdominal Surgeries: Surgical HX of: Appendectomy, Cholecystectomy, Colonoscopy , Hernia Repair Orthopedic Surgeries: Surgical HX of;: Total Knee Replacement (right knee replacement May 2014) - Family History Family History: Reports;: Family Cancer (sister), Family Heart Disease (brother , mother) - Social History Smoking Status: Former smoker (Quit 50 years ago) Have you smoked in the last 12 months: No Frequency of Alcohol Use: None Type of Drug Use: None Marital Status: Lives With:: Spouse Functional capacity: independent ambulation Physical Examination Vital Signs Temp Pulse Resp BP Pulse Ox 98.8 F 92 H 18 142/69 96 11/13/16 14:50 11/13/16 14:50 11/13/16 14:50 11/13/16 14:50 11/13/16 14:50 General: Present: Appears Well, No Apparent Distress HEENT: Present: PERRL, Mucus Membranes Moist Neck: Present: Supple Neck, Midline Trachea, No Bruit Cardiac: Present: Irregularly Regular, Systolic Murmur Lungs: Present: Clear Ascult./Percussion, No Wheeze, Rales, Rhonchi. Absent: Oxygen Neuro: Absent: Resting Tremor, Essential Tremor Abdomen: Present: Soft, Active Bowel Sounds, Non-Tender. Absent: Distended Skin: Absent: Rash, Suspicious Lesions Musculoskeletal: Present: Decreased Range of Motion, Pain in Joint Extremities: Present: No Edema, Other (Decrease pulses to left lower extremity, unable to assess right due to dressing) Result/EKG - Labs CBC & BMP: 11/14/16 07:14 11/13/16 15:31 Lab Results: I have reviewed the past 24 hour labs Labs: Laboratory Results - last 24 hr 11/14/16 11/14/16 11/15/16 15:33 21:16 05:55 INR 1.9 PT Patient/Control Mix 21.5 POC Glucose 154 H 215 H 11/15/16 11/15/16 06:49 12:32 INR PT Patient/Control Mix POC Glucose 138 H 180 H - EKG EKG results: interpreted by me EKG shows: atrial fibrillation IChris Wesley, MD, personally performed the services described in this documentation, ascribed by Miguelina Gomez RN in my presence, and it is both accurate and complete [id number] .
[2016-11-15] MEDS: WARFARIN 7.5 MG TABLET PO SCH (18:10)
[2016-11-15] MEDS: LOVASTATIN 20 MG TABLET PO SCH (18:10)
[2016-11-15] MEDS: AMITRIPTYLINE 75 MG TABLET PO SCH (20:44)
[2016-11-16 06:17] LABS: Basophils % 0.5 % (0.0-0.8); Eosinophils # 0.4 10*3/uL (0.0-0.87); Eosinophils % 4.4 % (0.00-10.9); Hematocrit 34.4 VOL% (42.0-52.0); Hemoglobin 11.3 GM/DL (14.0-18.0); Immature Granulocytes % 0.8 %; Immature Granulocytes Absolute 0.07 #; Lymphocytes # 2.6 10*3/uL (1.4-4.0); Lymphocytes % 30.8 % (21.2-54.2); Mean Corpuscular HGB Conc 32.8 GM/DL (32-36); Mean Corpuscular Hemoglobin 29 PG (27-34); Mean Corpuscular Volume 89.6 FL (87-102); Mean Platelet Volume 10.8 FL (9.6-12.0); Monocytes # 1.2 10*3/uL (0.11-0.8); Monocytes % 13.7 % (1.7-12.7); Neutrophils # 4.3 10*3/uL (1.4-7.4); Neutrophils % 49.8 % (38.7-73.9); Platelet Count 230 T/CUMM (130-400); Red Blood Count 3.84 MC/CUMM (3.8-5.5); Red Cell Distribution Width 14.3 % (9.3-17.3); White Blood Count 8.6 T/CUMM (4-12)
[2016-11-16] MEDS: LEVOTHYROXINE 25 MCG TABLET PO SCH (06:24)
[2016-11-16 06:31] LABS: INR 1.6; PT Patient Result 17.7 SECS
[2016-11-16 06:56] LABS: Calcium 8.1 MG/DL (8.5-10.1); Potassium 4.1 MMOL/L (3.5-5.1)
[2016-11-16] MEDS: INSULIN REGULAR 100 UNIT/ML SUBCUT SCH ×4 (07:31→21:24)
--- NOTE | 2016-11-16 08:29 | EKG Report ---
Stationary ECG Study [facility] Test Date: 11/16/2016 8:28:20 AM Pat Name: ÁNGELA SPRAGUE Department: Room: 342 Gender: M Cost Analyst: CARMEN : 1935 Requested by: Kelby Perez Order Number: [id number] Reading MD: KELBY PEREZ Intervals [place] Rate: 84 P: 999 UT: 0 QRS: 57 QRSD: 127 T: -90 QT: 401 QTc: 442 Interpretive Statements ATRIAL FIBRILLATION WITH ABERRANT CONDUCTION OR VENTRICULAR PREMATURE COMPLEXES INFERIOR MYOCARDIAL INFARCTION, OF INDETERMINATE AGE Electronically Signed On 11-16-16 08:37:53 CDT by KELBY PEREZ [email or web address]
[2016-11-16] MEDS: PIPERACILLIN/TAZOBACTAM 3,375 MG in SODIUM CHLORIDE 0.9% 100 ML IV SCH ×2 (08:32→16:41)
[2016-11-16] MEDS: INSULIN LISPRO PROTAMINE/LISPRO 75/25 100 UNIT/ML SUBCUT SCH ×2 (08:32→17:13)
[2016-11-16] MEDS: CLOPIDOGREL 75 MG TABLET PO SCH (08:33)
[2016-11-16] MEDS: FUROSEMIDE 40 MG TABLET PO SCH (08:33)
[2016-11-16] MEDS: FAMOTIDINE 20 MG TABLET PO SCH ×2 (08:33→20:36)
[2016-11-16] MEDS: LISINOPRIL 2.5 MG TABLET PO SCH (08:33)
[2016-11-16] MEDS: SPIRONOLACTONE 25 MG TABLET PO SCH (08:33)
[2016-11-16] MEDS: CARVEDILOL 25 MG TABLET PO SCH ×2 (08:33→20:36)
[2016-11-16] MEDS: ASPIRIN CHEW 81 MG TABLET PO SCH (08:34)
--- NOTE | 2016-11-16 09:36 | Internal Med Progress Note ---
Assessment and Plan (1) Osteomyelitis Status: Acute Assessment and plan: 81-year-old male admitted to acute care * Osteomyelitis of the distal phalanx of right great toe. Patient underwent debridement and amputation of distal digit right first toe. He tolerated procedure well. * Peripheral vascular disease. Stable * Hypertension. Blood pressure is stable * Coronary artery disease. He is stable * Atrial fibrillation. Patient appears to be in sinus rhythm. Continue Coumadin * Diabetes. He will be continued on his insulin. Will also keep him on sliding scale * Hypothyroidism. Continue current treatment * Discussed in detail with patient and his Current Visit: Yes Qualifiers: Osteomyelitis location: unspecified site (2) Coronary artery disease Status: Chronic Current Visit: Yes Qualifiers: Coronary Disease-Associated Artery/Lesion type: bypass graft [place] vs. transplanted heart: [place] heart Associated angina: without angina Qualified Code(s): I25.810 - Atherosclerosis of coronary artery bypass graft(s) without angina pectoris (3) Diabetes mellitus Status: Chronic Current Visit: No Qualifiers: Diabetes mellitus type: type 2 (4) Fibrillation, atrial Status: Chronic Current Visit: No (5) Hyperlipidemia Status: Chronic Current Visit: Yes (6) Hypertension Status: Chronic Current Visit: Yes (7) Peripheral arterial disease Status: Acute Current Visit: No Internal Medicine - PN: Subj Interval history: He is feeling better today. He denies any pain. No chest pain or shortness of breath. Exam (Progress Note) - Constitutional Vitals: Period Temp Pulse Resp BP Sys/Reyes Pulse Ox Last 24 Hr 97.6 F-99.0 F 53-105 12-20 120-158/64-84 95-99 Exam: Examination: GENERAL: NAD. HEENT: PERRLA. EOMI. NECK: Neck is supple CVS: Regular rate and rhythm. Systolic ejection murmur at left lower sternal border RESPIRATORY: Lungs are clear. No rales or rhonchi. ABDOMEN: Soft and nontender. Bowel sounds are present. No hepatosplenomegaly. EXT: No edema. OPHTHALMIC TECHNOLOGIST: Nonfocal SKIN: Warm and dry. Dressing present on the right foot MSK: No obvious deformity. Results - Labs CBC & BMP: 11/16/16 05:25 11/16/16 05:25 Lab Results: I have reviewed the past 24 hour labs
--- NOTE | 2016-11-16 11:02 | Event Note ---
Mr. Santa is afebrile with fair control of his blood sugars reports that a foot looked good today by wound care nurse and a cane. I will look at it tomorrow with her and we will come up with a wound care plan in the meantime I am waiting on the formal culture and sensitivities to determine which antibiotic would be most appropriate at discharge
[2016-11-16] MEDS: VANCOMYCIN INJ 1,500 MG in SODIUM CHLORIDE 0.9% 500 ML IV SCH (12:33)
--- NOTE | 2016-11-16 16:02 | Cardiology Progress Note ---
Patricia Khan April, RN, am scribing for, and in the presence of, Kelby Perez MD 16:02. Assessment and Plan (1) Status post amputation of right great toe Status: Acute Assessment and plan: November 15, 2016 he underwent debridement amputation of distal digit of right great toe by Dr. Nunes. Current Visit: Yes (2) Coronary artery disease Status: Chronic Assessment and plan: This is stable. He denies any chest pain. EKG today without any acute changes. Current Visit: Yes Qualifiers: Coronary Disease-Associated Artery/Lesion type: bypass graft [place] vs. transplanted heart: [place] heart Associated angina: without angina Qualified Code(s): I25.810 - Atherosclerosis of coronary artery bypass graft(s) without angina pectoris (3) Diabetes mellitus Status: Chronic Assessment and plan: Internal medicine is managing. Current Visit: No Qualifiers: Diabetes mellitus type: type 2 (4) Fibrillation, atrial Status: Chronic Assessment and plan: This is chronic and currently rate controlled. He is anticoagulated on warfarin and on carvedilol for rate control. Current Visit: No (5) Hyperlipidemia Status: Chronic Assessment and plan: He is on lovastatin 40 mg daily at home, this has been continued. Current Visit: Yes (6) Hypertension Status: Chronic Assessment and plan: Blood pressures have been stable, lisinopril has been continued. Current Visit: Yes (7) Chronic anticoagulation Status: Chronic Assessment and plan: He is anticoagulated on warfarin for atrial fibrillation. INR today is 1.6. Current Visit: Yes Cardiology - PN: Subj Interval history: Jewel Staker: Dr. Ocasio Summary: Mr. Santa is a 81 year old male with a history of CAD, hypertension, chronic atrial fibrillation, IDDM, PVD, hypothyroidism, diabetic neuropathy, and Burch's palsy. He is chronically anticoagulated on warfarin. He has had numerous stents in the past, the most recent being in 2005. He underwent CABG in 2005 with redo CABG in 2010. Echocardiogram May 22, 2014 with ejection fraction of 35-50%. He has also had stents placed in his legs. Other surgical history includes cholecystectomy, sinus surgery, right total knee, appendectomy , hernia repair, and bilateral cataract surgery. Family history includes heart disease in mother and brother and sister with cancer. He is a non-smoker, states he quit 50 years ago. Mr. Santa presented to the emergency department on November 13 with right great toe pain that he felt was related to an infected toe. He was taken to surgery today (November 15) by Dr. Nunes for debridement and amputation of distal digit of right first toe. Cardiology was asked to the patient because of his history of heart disease. Initial visit November 15, 2016: He is being seen postoperatively. Dressing noted to right foot is dry and intact. He denies any chest pain, shortness of breath, palpitations, or dizziness. negative assembler currently shows atrial fibrillation with heart rates in the 70s. Vital signs have been stable. INR today is 1.9. November 16, 2016: Mr. Santa is day 1 status post debridement and amputation of distal digit of right great toe. Dressing to right foot is dry and intact. He denies any chest pain, shortness of breath, palpitations, or dizziness. Vital signs been stable. EKG this morning with atrial fibrillation, heart rate of 84. INR this morning 1.6. I have discussed in detail the particulars of this case and I have examined the patient and reviewed the patient's chart both current and old. I was directly involved in the patient's evaluation and management and I completely agree with Miguelina Gomez RN regarding this patient's evaluation and treatment plan. Exam (Progress Note) - Constitutional Vitals: Period Temp Pulse Resp BP Sys/Reyes Pulse Ox Last 24 Hr 97.6 F-99.0 F 53-105 12-20 120-158/64-84 95-99 Exam: General: Present: Appears Well, No Apparent Distress HEENT: Present: PERRL, Mucus Membranes Moist Neck: Present: Supple Neck, Midline Trachea, No Bruit Cardiac: Present: Irregularly Regular, Systolic Murmur Lungs: Present: Clear to auscultation, No Wheeze, Rales, Rhonchi. Absent: Oxygen Neuro: Absent: Resting Tremor, Essential Tremor Abdomen: Present: Soft, Active Bowel Sounds, Non-Tender. Absent: Distended Skin: Absent: Rash, Suspicious Lesions Musculoskeletal: Present: Decreased Range of Motion, Pain in Joint Extremities: Present: No Edema, Other (Decrease pulses to left lower extremity, unable to assess right due to dressing) Result/EKG - Labs CBC & BMP: 11/16/16 05:25 11/16/16 05:25 Lab Results: I have reviewed the past 24 hour labs Labs: Laboratory Results - last 24 hr 11/15/16 11/15/16 11/15/16 12:32 16:18 20:17 WBC RBC Hgb Hct MCV MCH MCHC RDW Plt Count MPV Neut % (Auto) Lymph % (Auto) [place] % (Auto) Eos % (Auto) Baso % (Auto) Neut # (Auto) Lymph # (Auto) [place] # (Auto) Eos # (Auto) Baso # (Auto) Immature Gran % Nucleated RBC % Immature Gran # Nucleated RBCs # Immature Plt Fraction INR PT Patient/Control Mix Sodium Potassium Chloride Carbon Dioxide Anion Gap BUN Creatinine GFR Calculation BUN/Creatinine Ratio Glucose POC Glucose 180 H 172 H 235 H Calculated Osmolality Calcium Vancomycin Trough 11/16/16 11/16/16 11/16/16 05:25 05:25 05:25 WBC 8.6 RBC 3.84 Hgb 11.3 L Hct 34.4 L MCV 89.6 MCH 29 MCHC 32.8 RDW 14.3 Plt Count 230 MPV 10.8 Neut % (Auto) 49.8 Lymph % (Auto) 30.8 [place] % (Auto) 13.7 H Eos % (Auto) 4.4 Baso % (Auto) 0.5 Neut # (Auto) 4.3 Lymph # (Auto) 2.6 [place] # (Auto) 1.2 H Eos # (Auto) 0.4 Baso # (Auto) 0.0 Immature Gran % 0.8 Nucleated RBC % 0.0 Immature Gran # 0.07 Nucleated RBCs # 0.00 Immature Plt Fraction 0.0 INR 1.6 PT Patient/Control Mix 17.7 Sodium 143 Potassium 4.1 Chloride 111 H Carbon Dioxide 26 Anion Gap 10.1 BUN 21 H Creatinine 1.20 GFR Calculation 76 BUN/Creatinine Ratio 17.00 Glucose 132 H POC Glucose Calculated Osmolality 289.0 Calcium 8.1 L Vancomycin Trough 11/16/16 11/16/16 05:25 06:38 WBC RBC Hgb Hct MCV MCH MCHC RDW Plt Count MPV Neut % (Auto) Lymph % (Auto) [place] % (Auto) Eos % (Auto) Baso % (Auto) Neut # (Auto) Lymph # (Auto) [place] # (Auto) Eos # (Auto) Baso # (Auto) Immature Gran % Nucleated RBC % Immature Gran # Nucleated RBCs # Immature Plt Fraction INR PT Patient/Control Mix Sodium Potassium Chloride Carbon Dioxide Anion Gap BUN Creatinine GFR Calculation BUN/Creatinine Ratio Glucose POC Glucose 123 H Calculated Osmolality Calcium Vancomycin Trough 16.1 - EKG EKG results: interpreted by me EKG shows: atrial fibrillation Specialty Discharge - Follow Up or Referrals Follow up with: Vinayak Nunes MD [Family Provider] - Chris Khan Wesley, MD, personally performed the services described in this documentation, ascribed by Miguelina Gomez RN in my presence, and it is both accurate and complete [id number] .
[2016-11-16] MEDS: WARFARIN 7.5 MG TABLET PO SCH (17:13)
[2016-11-16] MEDS: LOVASTATIN 20 MG TABLET PO SCH (17:13)
[2016-11-16] MEDS: AMITRIPTYLINE 75 MG TABLET PO SCH (20:36)
[2016-11-17] MEDS: PIPERACILLIN/TAZOBACTAM 3,375 MG in SODIUM CHLORIDE 0.9% 100 ML IV SCH ×4 (00:32→23:11)
[2016-11-17 04:22] LABS: PT Patient Result 22.1 SECS
[2016-11-17] MEDS: LEVOTHYROXINE 25 MCG TABLET PO SCH (06:41)
[2016-11-17] MEDS: VANCOMYCIN INJ 1,500 MG in SODIUM CHLORIDE 0.9% 500 ML IV SCH (06:41)
[2016-11-17] MEDS: INSULIN REGULAR 100 UNIT/ML SUBCUT SCH ×4 (08:15→20:57)
[2016-11-17] MEDS: CARVEDILOL 25 MG TABLET PO SCH ×2 (08:38→20:56)
[2016-11-17] MEDS: CLOPIDOGREL 75 MG TABLET PO SCH (08:38)
[2016-11-17] MEDS: SPIRONOLACTONE 25 MG TABLET PO SCH (08:38)
[2016-11-17] MEDS: FUROSEMIDE 40 MG TABLET PO SCH (08:38)
[2016-11-17] MEDS: FAMOTIDINE 20 MG TABLET PO SCH ×2 (08:38→20:56)
[2016-11-17] MEDS: ASPIRIN CHEW 81 MG TABLET PO SCH (08:38)
[2016-11-17] MEDS: LISINOPRIL 2.5 MG TABLET PO SCH (08:38)
--- NOTE | 2016-11-17 08:39 | Internal Med Progress Note ---
Assessment and Plan (1) Osteomyelitis Status: Acute Assessment and plan: 81-year-old male admitted to acute care * Osteomyelitis of the distal phalanx of right great toe. Patient underwent debridement and amputation of distal digit right first toe. Cultures are still pending * Peripheral vascular disease. Stable * Hypertension. Blood pressure is stable * Coronary artery disease. He is stable * Atrial fibrillation. His INR is therapeutic * Diabetes. Continue current treatment * Hypothyroidism. Continue current treatment * If he is discharged today I will see him at regular appointment in the next few weeks * Discussed in detail with patient and his Current Visit: Yes Qualifiers: Osteomyelitis location: unspecified site (2) Coronary artery disease Status: Chronic Current Visit: Yes Qualifiers: Coronary Disease-Associated Artery/Lesion type: bypass graft [place] vs. transplanted heart: [place] heart Associated angina: without angina Qualified Code(s): I25.810 - Atherosclerosis of coronary artery bypass graft(s) without angina pectoris (3) Diabetes mellitus Status: Chronic Current Visit: No Qualifiers: Diabetes mellitus type: type 2 (4) Fibrillation, atrial Status: Chronic Current Visit: No (5) Hyperlipidemia Status: Chronic Current Visit: Yes (6) Hypertension Status: Chronic Current Visit: Yes (7) Peripheral arterial disease Status: Acute Current Visit: No Internal Medicine - PN: Subj Interval history: He is feeling better today. He denies any specific complaints. His breathing is good. He is not having any pain in his feet. Exam (Progress Note) - Constitutional Vitals: Period Temp Pulse Resp BP Sys/Reyes Pulse Ox Last 24 Hr 97.1 F-99.7 F 61-112 18-20 130-158/65-82 94-98 Exam: Examination: GENERAL: NAD. NECK: Neck is supple CVS: Regular rate and rhythm. Systolic ejection murmur at left lower sternal border RESPIRATORY: Lungs are clear ABDOMEN: Soft and nontender. EXT: No edema. PRESS MANAGER: Nonfocal SKIN: Warm and dry. Dressing present on the right foot MSK: No obvious deformity. Results - Labs CBC & BMP: 11/16/16 05:25 11/16/16 05:25 Lab Results: I have reviewed the past 24 hour labs Specialty Discharge - Follow Up or Referrals Follow up with: iVnayak Nunes MD [Family Provider] -
[2016-11-17] MEDS: INSULIN LISPRO PROTAMINE/LISPRO 75/25 100 UNIT/ML SUBCUT SCH ×2 (08:40→16:52)
--- NOTE | 2016-11-17 09:20 | Event Note ---
Mr. Farmer foot and toe look good this to has adequate perfusion and will heal. Still waiting on cultures to determine most appropriate antibiotic therapy
--- NOTE | 2016-11-17 16:24 | Cardiology Progress Note ---
Patricia Khan April, RN, am scribing for, and in the presence of, Kelby Perez MD 16:24. Assessment and Plan (1) Status post amputation of right great toe Status: Acute Assessment and plan: November 15, 2016 he underwent debridement amputation of distal digit of right great toe by Dr. Nunes. Current Visit: Yes (2) Coronary artery disease Status: Chronic Assessment and plan: This is stable. He denies any chest pain. Current Visit: Yes Qualifiers: Coronary Disease-Associated Artery/Lesion type: bypass graft [place] vs. transplanted heart: [place] heart Associated angina: without angina Qualified Code(s): I25.810 - Atherosclerosis of coronary artery bypass graft(s) without angina pectoris (3) Diabetes mellitus Status: Chronic Assessment and plan: Internal medicine is managing. Current Visit: No Qualifiers: Diabetes mellitus type: type 2 (4) Fibrillation, atrial Status: Chronic Assessment and plan: This is chronic and currently rate controlled. He is anticoagulated on warfarin and on carvedilol for rate control. Current Visit: No (5) Hyperlipidemia Status: Chronic Assessment and plan: He is on lovastatin 40 mg daily at home, this has been continued. Current Visit: Yes (6) Hypertension Status: Chronic Assessment and plan: Blood pressures have been stable, lisinopril has been continued. Current Visit: Yes (7) Chronic anticoagulation Status: Chronic Assessment and plan: He is anticoagulated on warfarin for atrial fibrillation. INR today is 2.0. Current Visit: Yes Cardiology - PN: Subj Interval history: Principal Process Engineer: Dr. Ocasio Summary: Mr. Santa is a 81 year old male with a history of CAD, hypertension, chronic atrial fibrillation, IDDM, PVD, hypothyroidism, diabetic neuropathy, and Burch's palsy. He is chronically anticoagulated on warfarin. He has had numerous stents in the past, the most recent being in 2005. He underwent CABG in 2005 with redo CABG in 2010. Echocardiogram May 22, 2014 with ejection fraction of 35-50%. He has also had stents placed in his legs. Other surgical history includes cholecystectomy, sinus surgery, right total knee, appendectomy , hernia repair, and bilateral cataract surgery. Family history includes heart disease in mother and brother and sister with cancer. He is a non-smoker, states he quit 50 years ago. Mr. Santa presented to the emergency department on [place] 9 with right great toe pain that he felt was related to an infected toe. He was taken to surgery today (November 15) by Dr. Nunes for debridement and amputation of distal digit of right first toe. Cardiology was asked to the patient because of his history of heart disease. Initial visit November 15, 2016: He is being seen postoperatively. Dressing noted to right foot is dry and intact. He denies any chest pain, shortness of breath, palpitations, or dizziness. media monitor currently shows atrial fibrillation with heart rates in the 70s. Vital signs have been stable. INR today is 1.9. November 16, 2016: Mr. Santa is day 1 status post debridement and amputation of distal digit of right great toe. Dressing to right foot is dry and intact. He denies any chest pain, shortness of breath, palpitations, or dizziness. Vital signs been stable. EKG this morning with atrial fibrillation, heart rate of 84. INR this morning 1.6. November 17, 2016: Mr. Santa is day 2 status post debridement and amputation of distal digit of right great toe. His right foot has a dressing. He is without complaint. Vital signs been stable. INR today is 2.0. media monitor currently shows atrial fibrillation with heart rate in the 80s. Patient continues stable. EKG is low risk. I have discussed in detail the particulars of this case and I have examined the patient and reviewed the patient's chart both current and old. I was directly involved in the patient's evaluation and management and I completely agree with Miguelina Gomez RN regarding this patient's evaluation and treatment plan. Exam (Progress Note) - Constitutional Vitals: Period Temp Pulse Resp BP Sys/Reyes Pulse Ox Last 24 Hr 97.1 F-99.7 F 61-99 18-20 130-158/65-82 94-98 Exam: General: Present: Appears Well, No Apparent Distress HEENT: Present: PERRL, Mucus Membranes Moist Neck: Present: Supple Neck, Midline Trachea, No Bruit Cardiac: Present: Irregularly Regular, Systolic Murmur Lungs: Present: Clear to auscultation, No Wheeze, Rales, Rhonchi. Absent: Oxygen Neuro: Absent: Resting Tremor, Essential Tremor Abdomen: Present: Soft, Active Bowel Sounds, Non-Tender. Absent: Distended Skin: Absent: Rash, Suspicious Lesions Musculoskeletal: Present: Decreased Range of Motion, Pain in Joint Extremities: Present: No Edema, Other (Decrease pulses to left lower extremity, unable to assess right due to dressing) Result/EKG - Labs CBC & BMP: 11/16/16 05:25 11/16/16 05:25 Lab Results: I have reviewed the past 24 hour labs Labs: Laboratory Results - last 24 hr 11/16/16 11/16/16 11/17/16 15:50 19:30 03:18 INR 2.0 PT Patient/Control Mix 22.1 D POC Glucose 213 H 210 H 11/17/16 11/17/16 07:29 11:21 INR PT Patient/Control Mix POC Glucose 118 H 152 H - EKG EKG shows: atrial fibrillation Specialty Discharge - Follow Up or Referrals Follow up with: Vinayak Nunes MD [Family Provider] - IChris Wesley, MD, personally performed the services described in this documentation, ascribed by Miguelina Gomez RN in my presence, and it is both accurate and complete [id number] .
[2016-11-17] MEDS: LOVASTATIN 20 MG TABLET PO SCH (16:48)
[2016-11-17] MEDS: WARFARIN 7.5 MG TABLET PO SCH (17:13)
[2016-11-17] MEDS: AMITRIPTYLINE 75 MG TABLET PO SCH (20:56)
[2016-11-18] MEDS: VANCOMYCIN INJ 1,500 MG in SODIUM CHLORIDE 0.9% 500 ML IV SCH (03:14)
[2016-11-18 06:12] LABS: PT Patient Result 22.6 SECS
[2016-11-18] MEDS: LEVOTHYROXINE 25 MCG TABLET PO SCH (07:15)
--- NOTE | 2016-11-18 07:59 | Internal Med Progress Note ---
Assessment and Plan (1) Osteomyelitis Status: Acute Assessment and plan: 81-year-old male admitted to acute care * Osteomyelitis of the distal phalanx of right great toe. Enterococcus faecalis. It is sensitive to ampicillin. * Peripheral vascular disease. Stable * Hypertension. Blood pressure is stable * Coronary artery disease. He is stable * Atrial fibrillation. His INR is therapeutic * Diabetes. Continue current treatment * Hypothyroidism. Continue current treatment * Will see him in clinic in next few weeks Current Visit: Yes Qualifiers: Osteomyelitis location: unspecified site (2) Coronary artery disease Status: Chronic Current Visit: Yes Qualifiers: Coronary Disease-Associated Artery/Lesion type: bypass graft [place] vs. transplanted heart: [place] heart Associated angina: without angina Qualified Code(s): I25.810 - Atherosclerosis of coronary artery bypass graft(s) without angina pectoris (3) Diabetes mellitus Status: Chronic Current Visit: No Qualifiers: Diabetes mellitus type: type 2 (4) Fibrillation, atrial Status: Chronic Current Visit: No (5) Hyperlipidemia Status: Chronic Current Visit: Yes (6) Hypertension Status: Chronic Current Visit: Yes (7) Peripheral arterial disease Status: Acute Current Visit: No Internal Medicine - PN: Subj Interval history: He is sitting up in the chair. He denies any specific complaints. Exam (Progress Note) - Constitutional Vitals: Period Temp Pulse Resp BP Sys/Reyes Pulse Ox Last 24 Hr 97.6 F-98.5 F 69-95 18-20 133-147/60-96 97-100 Exam: Examination: GENERAL: NAD. CVS: Regular rate and rhythm. Systolic ejection murmur at left lower sternal border RESPIRATORY: Lungs are clear ABDOMEN: Soft and nontender. EXT: No edema. CERTIFIED NOVELL ENGINEER: Nonfocal SKIN: Warm and dry. Dressing present on the right foot MSK: No obvious deformity. Results - Labs CBC & BMP: 11/16/16 05:25 11/16/16 05:25 Lab Results: I have reviewed the past 24 hour labs Specialty Discharge - Follow Up or Referrals Follow up with: Vinayak Nunes MD [Family Provider] -
[2016-11-18] MEDS: INSULIN REGULAR 100 UNIT/ML SUBCUT SCH ×2 (08:06→12:26)
[2016-11-18] MEDS: PIPERACILLIN/TAZOBACTAM 3,375 MG in SODIUM CHLORIDE 0.9% 100 ML IV SCH (08:24)
--- NOTE | 2016-11-18 08:26 | Discharge Summary ---
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 He is ready for discharge will continue him with ampicillin 500 mg 4 times daily for 2 weeks where setting up wound care and teaching his for the type of wound care which should be relatively simple I will see him in the office next week. Specialty Discharge - Follow Up or Referrals Follow up with: Vinayak Nunes MD [Family Provider] - Discharge Plan - Discharge Medications No Action Spironolactone [Aldactone] 12.5 mg PO QAM Ranitidine Tab [Zantac Tab] 150 mg PO QAM Nitroglycerin [Nitroglycerin SL Tab] 0.4 mg SL Q5M PRN PRN Reason: Chest Pain Clopidogrel [Plavix] 75 mg PO QAM Levothyroxine Tab [Synthroid Tab] 125 mcg PO DAILY@0700 Furosemide Tab [Lasix Tab] 40 mg PO QAM [place]-3 Fatty Acids [Fish Oil] 1,000 mg PO BID Niacin [Slo-Niacin] 500 mg PO BID Magnesium Oxide [Magox 400] 400 mg PO BID Lovastatin 40 mg PO BEDTIME Lisinopril 2.5 mg PO BEDTIME Insulin Lispro Prot/Lisp 75/25 [HumaLOG Mix 75/25] 82 unit SUBCUT BIDAC Carvedilol 25 mg PO BID Aspirin [Ecotrin] 325 mg PO QAM Warfarin [Coumadin] 7.5 mg PO DAILY@1800 tablet Amitriptyline HCl [Amitriptyline HCl] 100 mg PO BEDTIME - Follow Up or Referral Follow Up: Vinayak Nunes MD [Family Provider] - - Forms/Instructions Exam - Constitutional Vitals: Period Temp Pulse Resp BP Sys/Reyes Pulse Ox Last 24 Hr 97.6 F-98.5 F 69-95 18-20 133-147/60-96 97-100 Discharge Results Procedures and tests throughout hospitalization: Pending Orders 11/13/16 17:03 Blood Culture Stat 11/15/16 11:00 Abscess Culture Routine Anaerobic Culture Routine 11/19/16 04:00 BMP [Basic Metabolic Panel] IN AM Prothrombin Time INR IN AM 11/20/16 04:00 Prothrombin Time INR IN AM Labs on day of discharge: Labs from last 24 hours 11/18/16 11/18/16 11/17/16 06:49 03:33 19:36 INR 2.0 PT Patient/Control Mix 22.6 POC Glucose 102 218 H 11/17/16 11/17/16 16:17 11:21 INR PT Patient/Control Mix POC Glucose 164 H 152 H Preliminary micro results at discharge 11/15/16 11:00 Abscess Culture - Preliminary Toe - Right Enterococcus faecalis Gram Positive Cocci 11/13/16 17:03 Blood Culture - Preliminary Blood No growth at 3 days 11/13/16 17:03 Blood Culture - Preliminary Blood No growth at 3 days DS: Provider Date of admission: 11/13/16 16:58 Primary care physician: Chance Moreira MD Attending physician on admission: Vinayak Nunes MD Consults: 11/13/16 18:48 Consult to Pharmacy [CONS] Routine Reason for Pharmacy Consult: Dose/Manage Vancomycin 11/14/16 13:12 Consult to Physician [CONS] Routine Comment: pt known to you...diabetes Consulting Provider: Chance Moreira Consulting Provider Notified: Yes When should Consulting Provider be notified: Now When should Consulting Provider be notified: In am Person Notified: Dr. Moreira saw Date Notified: 11/15/16 Time Notified: 08:02 Consult Notification Comment: pamela called with room number 11/15/16 07:15 Consult to Physician [CONS] Routine Comment: Consulting Provider: Vinayak Nunes Consulting Provider Notified: Yes When should Consulting Provider be notified: Now Person Notified: macrina called Date Notified: 11/15/16 Time Notified: 09:18 11/15/16 09:03 Consult to Physician [CONS] Routine Comment: Coronary artery disease Consulting Provider: Nicholas Ocasio 11/15/16 09:27 Consult to Physician [CONS] Routine Comment: Consulting Provider: Cardiology - [facility] Consulting Provider Notified: Yes When should Consulting Provider be notified: Now Person Notified: francisca called Date Notified: 11/15/16 Time Notified: 09:28 11/15/16 11:13 Consult to Wound Care - [place] [CONS] Routine Reason for Wound Care: Wound Care Management Discharging clinician: Vinayak Nunes MD
[2016-11-18] MEDS: SPIRONOLACTONE 25 MG TABLET PO SCH (08:27)
[2016-11-18] MEDS: ASPIRIN CHEW 81 MG TABLET PO SCH (08:27)
[2016-11-18] MEDS: CLOPIDOGREL 75 MG TABLET PO SCH (08:27)
[2016-11-18] MEDS: CARVEDILOL 25 MG TABLET PO SCH (08:27)
[2016-11-18] MEDS: FUROSEMIDE 40 MG TABLET PO SCH (08:27)
[2016-11-18] MEDS: LISINOPRIL 2.5 MG TABLET PO SCH (08:28)
[2016-11-18] MEDS: FAMOTIDINE 20 MG TABLET PO SCH (08:28)
[2016-11-18] MEDS: INSULIN LISPRO PROTAMINE/LISPRO 75/25 100 UNIT/ML SUBCUT SCH (08:29)
--- NOTE | 2016-11-18 08:30 | Discharge Summary ---
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 He is ready for discharge will continue him with ampicillin 500 mg 4 times daily for 2 weeks where setting up wound care and teaching his for the type of wound care which should be relatively simple I will see him in the office next week. Specialty Discharge - Follow Up or Referrals Follow up with: Vinayak Nunes MD [Family Provider] - Discharge Plan - Discharge Data Disposition: Disch To Home/Self Care Condition at Discharge: Stable Discharge Diet: diabetic diet Activity: no prolonged standing Hygiene: may shower Weight Bearing at Discharge: weight bear as tolerated, partial weight bearing Contact your physician if you experience:: fever over 101, Redness or swelling - Discharge Medications New Amitriptyline [Elavil] 75 mg PO BEDTIME tablet Ampicillin Cap 500 mg PO QID #60 capsule Carvedilol [Coreg] 25 mg PO BID tablet Clopidogrel [Plavix] 75 mg PO DAILY tablet Famotidine Tab [Pepcid Tab] 20 mg PO BID tablet HYDROcodone/ACETAMIN 7.5-325 [[place] 7.5-325] 1 tablet PO Q4H PRN #20 tablet PRN Reason: Pain Moderate (4-7) Insulin Lispro Prot/Lisp 75/25 [HumaLOG Mix 75/25] 75 unit SUBCUT BIDAC unit Insulin Regular [HumuLIN R] See Protocol SUBCUT ACHS unit Lisinopril [Prinivil] 2.5 mg PO DAILY tablet Lovastatin [Mevacor] 40 mg PO DAILY W/SUPPER tablet Spironolactone [Aldactone] 25 mg PO DAILY tablet Warfarin [Coumadin] 7.5 mg PO DAILY@1800 tablet Aspirin Chew Tab 324 mg PO DAILY tablet Furosemide Tab [Lasix Tab] 40 mg PO DAILY tablet Levothyroxine Tab [Synthroid Tab] 25 mcg PO DAILY@0700 tablet Continue Spironolactone [Aldactone] 12.5 mg PO QAM Ranitidine Tab [Zantac Tab] 150 mg PO QAM Nitroglycerin [Nitroglycerin SL Tab] 0.4 mg SL Q5M PRN PRN Reason: Chest Pain Clopidogrel [Plavix] 75 mg PO QAM Levothyroxine Tab [Synthroid Tab] 125 mcg PO DAILY@0700 Furosemide Tab [Lasix Tab] 40 mg PO QAM [place]-3 Fatty Acids [Fish Oil] 1,000 mg PO BID Niacin [Slo-Niacin] 500 mg PO BID Magnesium Oxide [Magox 400] 400 mg PO BID Lovastatin 40 mg PO BEDTIME Lisinopril 2.5 mg PO BEDTIME Insulin Lispro Prot/Lisp 75/25 [HumaLOG Mix 75/25] 82 unit SUBCUT BIDAC Carvedilol 25 mg PO BID Aspirin [Ecotrin] 325 mg PO QAM Warfarin [Coumadin] 7.5 mg PO DAILY@1800 tablet Amitriptyline HCl 100 mg PO BEDTIME - Follow Up or Referral Follow Up: Vinayak Nunes MD [Family Provider] - 11/23/16 - Forms/Instructions Exam - Constitutional Vitals: Period Temp Pulse Resp BP Sys/Reyes Pulse Ox Last 24 Hr 97.6 F-98.5 F 69-95 18-20 133-147/60-96 97-100 Discharge Results Procedures and tests throughout hospitalization: Pending Orders 11/13/16 17:03 Blood Culture Stat 11/15/16 11:00 Abscess Culture Routine Anaerobic Culture Routine 11/19/16 04:00 BMP [Basic Metabolic Panel] IN AM Prothrombin Time INR IN AM 11/20/16 04:00 Prothrombin Time INR IN AM Labs on day of discharge: Labs from last 24 hours 11/18/16 11/18/16 11/17/16 06:49 03:33 19:36 INR 2.0 PT Patient/Control Mix 22.6 POC Glucose 102 218 H 11/17/16 11/17/16 16:17 11:21 INR PT Patient/Control Mix POC Glucose 164 H 152 H Preliminary micro results at discharge 11/15/16 11:00 Abscess Culture - Preliminary Toe - Right Enterococcus faecalis Gram Positive Cocci 11/13/16 17:03 Blood Culture - Preliminary Blood No growth at 3 days 11/13/16 17:03 Blood Culture - Preliminary Blood No growth at 3 days DS: Provider Date of admission: 11/13/16 16:58 Primary care physician: Chance Moreira MD Attending physician on admission: Vinayak Nunes MD Consults: 11/13/16 18:48 Consult to Pharmacy [CONS] Routine Reason for Pharmacy Consult: Dose/Manage Vancomycin 11/14/16 13:12 Consult to Physician [CONS] Routine Comment: pt known to you...diabetes Consulting Provider: Chance Moreira Consulting Provider Notified: Yes When should Consulting Provider be notified: Now When should Consulting Provider be notified: In am Person Notified: Dr. Moreira saw Date Notified: 11/15/16 Time Notified: 08:02 Consult Notification Comment: pamela called with room number 11/15/16 07:15 Consult to Physician [CONS] Routine Comment: Consulting Provider: Vinayak Nunes Consulting Provider Notified: Yes When should Consulting Provider be notified: Now Person Notified: macrina called Date Notified: 11/15/16 Time Notified: 09:18 11/15/16 09:03 Consult to Physician [CONS] Routine Comment: Coronary artery disease Consulting Provider: Nicholas Ocasio 11/15/16 09:27 Consult to Physician [CONS] Routine Comment: Consulting Provider: Cardiology - [facility] Consulting Provider Notified: Yes When should Consulting Provider be notified: Now Person Notified: francisca called Date Notified: 11/15/16 Time Notified: 09:28 11/15/16 11:13 Consult to [facility] [place] [CONS] Routine Reason for Wound Care: Wound Care Management Discharging clinician: Vinayak Nunes MD
[2016-11-18 10:00] LABS: INR 2.1; PT Patient Result 23.6 SECS
[2016-11-18 11:48] VITALS: BP 112/67
--- NOTE | 2016-11-18 13:51 | Cardiology Progress Note ---
Patricia Khan April RN, am scribing for, and in the presence of, Kelby Perez MD 13:51. Assessment and Plan (1) Status post amputation of right great toe Status: Acute Assessment and plan: November 15, 2016 he underwent debridement amputation of distal digit of right great toe by Dr. Nunes. (2) Coronary artery disease Status: Chronic Assessment and plan: This is stable. He denies any chest pain. Qualifiers: Coronary Disease-Associated Artery/Lesion type: bypass graft [place] vs. transplanted heart: [place] heart Associated angina: without angina Qualified Code(s): I25.810 - Atherosclerosis of coronary artery bypass graft(s) without angina pectoris (3) Diabetes mellitus Status: Chronic Assessment and plan: Internal medicine is managing. Qualifiers: Diabetes mellitus type: type 2 (4) Fibrillation, atrial Status: Chronic Assessment and plan: This is chronic and currently rate controlled. He is anticoagulated on warfarin and on carvedilol for rate control. (5) Hyperlipidemia Status: Chronic Assessment and plan: He is on lovastatin 40 mg daily at home, this has been continued. (6) Hypertension Status: Chronic Assessment and plan: Blood pressures have been stable, lisinopril has been continued. (7) Chronic anticoagulation Status: Chronic Assessment and plan: He is anticoagulated on warfarin for atrial fibrillation. He is being discharged on antibiotics. INR today is 2.1. We will have him check INR at Dr. Ocasio's office next Tuesday. Cardiology - PN: Subj Interval history: Cheesemaker Helper: Dr. Ocasio Summary: Mr. Santa is a 81 year old male with a history of CAD, hypertension, chronic atrial fibrillation, IDDM, PVD, hypothyroidism, diabetic neuropathy, and Burch's palsy. He is chronically anticoagulated on warfarin. He has had numerous stents in the past, the most recent being in 2005. He underwent CABG in 2005 with redo CABG in 2010. Echocardiogram May 22, 2014 with ejection fraction of 35-50%. He has also had stents placed in his legs. Other surgical history includes cholecystectomy, sinus surgery, right total knee, appendectomy , hernia repair, and bilateral cataract surgery. Family history includes heart disease in mother and brother and sister with cancer. He is a non-smoker, states he quit 50 years ago. Mr. Santa presented to the emergency department on November 13 with right great toe pain that he felt was related to an infected toe. He was taken to surgery today (November 15) by Dr. Nunes for debridement and amputation of distal digit of right first toe. Cardiology was asked to the patient because of his history of heart disease. Initial visit November 15, 2016: He is being seen postoperatively. Dressing noted to right foot is dry and intact. He denies any chest pain, shortness of breath, palpitations, or dizziness. court monitor currently shows atrial fibrillation with heart rates in the 70s. Vital signs have been stable. INR today is 1.9. November 16, 2016: Mr. Santa is day 1 status post debridement and amputation of distal digit of right great toe. Dressing to right foot is dry and intact. He denies any chest pain, shortness of breath, palpitations, or dizziness. Vital signs been stable. EKG this morning with atrial fibrillation, heart rate of 84. INR this morning 1.6. November 17, 2016: Mr. Santa is day 2 status post debridement and amputation of distal digit of right great toe. His right foot has a dressing. He is without complaint. Vital signs been stable. INR today is 2.0. court monitor currently shows atrial fibrillation with heart rate in the 80s. November 18, 2016: Mr. Santa is day 3 status post debridement amputation of distal digit of right great toe. He denies any complaints. Vital signs have been stable. court monitor currently shows atrial fibrillation with heart rates in the 60s. INR today is 2.1. He is being discharged today. He will be going home on antibiotics and we will check an INR with Dr. Ocasio next Tuesday. We will get a follow-up appointment with Dr. Ocasio in the office in 2 weeks. I have discussed in detail the particulars of this case and I have examined the patient and reviewed the patient's chart both current and old. I was directly involved in the patient's evaluation and management and I completely agree with Miguelina Gomez RN regarding this patient's evaluation and treatment plan. Exam (Progress Note) - Constitutional Vitals: Period Temp Pulse Resp BP Sys/Reyes Pulse Ox Last 24 Hr 97.6 F-98.5 F 69-95 18-20 133-147/60-96 97-100 Exam: General: Present: Appears Well, No Apparent Distress HEENT: Present: PERRL, Mucus Membranes Moist Neck: Present: Supple Neck, Midline Trachea, No Bruit Cardiac: Present: Irregularly Regular, Systolic Murmur Lungs: Present: Clear to auscultation, No Wheeze, Rales, Rhonchi. Absent: Oxygen Neuro: Absent: Resting Tremor, Essential Tremor Abdomen: Present: Soft, Active Bowel Sounds, Non-Tender. Absent: Distended Skin: Absent: Rash, Suspicious Lesions Musculoskeletal: Present: Decreased Range of Motion, Pain in Joint Extremities: Present: No Edema, Other (Decrease pulses to left lower extremity, unable to assess right due to dressing) Result/EKG - Labs CBC & BMP: 11/16/16 05:25 11/16/16 05:25 Lab Results: I have reviewed the past 24 hour labs Labs: Laboratory Results - last 24 hr 11/17/16 11/17/16 11/17/16 11:21 16:17 19:36 INR PT Patient/Control Mix POC Glucose 152 H 164 H 218 H 11/18/16 11/18/16 03:33 06:49 INR 2.0 PT Patient/Control Mix 22.6 POC Glucose 102 - EKG EKG results: interpreted by me EKG shows: atrial fibrillation Specialty Discharge - Follow Up or Referrals Follow up with: Nicholas Ocasio MD [Physician] - 12/02/16 1:30 pm (With INR. He also needs lab only November [address] Ocasio's office with an INR. lab on 2016 at 10:00 dr. ocasio office lab on [id number] at 1:00 dr. ocasio office) Chance Moreira MD [Primary Care Provider] - 11/29/16 11:15 am (3 WEEKS) Vinayak Nunes MD [Family Provider] - 11/23/16 1:15 pm I, Kelby Perez MD, personally performed the services described in this documentation, ascribed by Miguelina Gomez RN in my presence, and it is both accurate and complete 351 .
== END 2016-11-18 13:30 | disposition home or self-care (01) | DRG 256 ==
LOC: N.ED 14:42 → N.EDINP 16:58 → N.3E 18:40
PROVIDERS: ADMIT Surgery; ATTEND Surgery

== ENCOUNTER 2017-01-09 06:12 | Inpatient (IN) ==
[2017-01-09 07:15] LABS: INR 2.1
[2017-01-09 07:26] LABS: PT Patient Result 21.4 SECS
[2017-01-09 07:27] LABS: Basophils % 0.3 % (0.0-0.8); Eosinophils # 0.1 10*3/uL (0.0-0.87); Eosinophils % 1.3 % (0.00-10.9); Hematocrit 32.2 VOL% (42.0-52.0); Hemoglobin 10.6 GM/DL (14.0-18.0); Immature Granulocytes % 0.5 %; Immature Granulocytes Absolute 0.05 #; Lymphocytes # 2.2 10*3/uL (1.4-4.0); Lymphocytes % 23.4 % (21.2-54.2); Mean Corpuscular HGB Conc 32.9 GM/DL (32-36); Mean Corpuscular Hemoglobin 29 PG (27-34); Mean Corpuscular Volume 86.6 FL (87-102); Mean Platelet Volume 10.3 FL (9.6-12.0); Monocytes # 1.1 10*3/uL (0.11-0.8); Monocytes % 11.7 % (1.7-12.7); Neutrophils % 62.8 % (38.7-73.9); Platelet Count 215 T/CUMM (130-400); Red Blood Count 3.72 MC/CUMM (3.8-5.5); White Blood Count 9.5 T/CUMM (4-12)
[2017-01-09 07:32] LABS: Calcium 8.6 MG/DL (8.5-10.1); Magnesium 2.2 MG/DL (1.8-2.4); Osmolality,Calculated 278.8 MOS/KG (273-304); Potassium 4.3 MMOL/L (3.5-5.1)
[2017-01-09] MEDS ORDERED: CEFTAROLINE 600 MG in SODIUM CHLORIDE 0.9% 100 ML IV STA (09:32)
[2017-01-09] MEDS ORDERED: ACETAMINOPHEN 325 MG TABLET PO PRN (09:34)
[2017-01-09] MEDS ORDERED: MORPHINE 2 MG/1 ML SYRINGE IV PRN (09:34)
[2017-01-09] MEDS ORDERED: ONDANSETRON 4 MG/2 ML VIAL IV PRN (09:34)
[2017-01-09] MEDS ORDERED: DEXTROSE 50% 25 GM/50 ML VIAL IV PRN (09:34)
[2017-01-09] MEDS ORDERED: GLUCAGON 1 MG VIAL IM PRN (09:34)
[2017-01-09] MEDS ORDERED: CEFTAROLINE 600 MG VIAL IV ONE (09:56)
[2017-01-09] MEDS ORDERED: SODIUM CHLORIDE 0.45% 1,000 ML IV SCH (10:00)
[2017-01-09] MEDS: INSULIN LISPRO 100 UNIT/ML SUBCUT SCH ×3 (12:04→21:55)
[2017-01-09] MEDS: HYDROmorphone 2 MG/1 ML VIAL IV PRN (14:47)
[2017-01-09] MEDS ORDERED: NITROGLYCERIN SL 0.4 MG TABLET SL PRN (15:04)
[2017-01-09] MEDS: WARFARIN 7.5 MG TABLET PO SCH (17:11)
[2017-01-09] MEDS: CARVEDILOL 25 MG TABLET PO SCH (21:54)
[2017-01-09] MEDS: LISINOPRIL 2.5 MG TABLET PO SCH (21:55)
[2017-01-09] MEDS: LOVASTATIN 20 MG TABLET PO SCH (21:55)
[2017-01-09] MEDS: DOCUSATE SODIUM 100 MG CAPSULE PO SCH (21:55)
[2017-01-09] MEDS: CEFTAROLINE 600 MG in SODIUM CHLORIDE 0.9% 50 ML IV SCH (21:55)
[2017-01-09] MEDS: AMITRIPTYLINE 50 MG TABLET PO SCH (21:55)
[2017-01-10] MEDS: HYDROmorphone 2 MG/1 ML VIAL IV PRN ×3 (00:34→20:56)
[2017-01-10 05:10] LABS: Basophils % 0.1 % (0.0-0.8); Eosinophils % 0.1 % (0.00-10.9); Hematocrit 34.3 VOL% (42.0-52.0); Hemoglobin 11.2 GM/DL (14.0-18.0); Immature Granulocytes % 0.8 %; Immature Granulocytes Absolute 0.07 #; Lymphocytes # 1.6 10*3/uL (1.4-4.0); Mean Corpuscular HGB Conc 32.7 GM/DL (32-36); Mean Corpuscular Hemoglobin 29 PG (27-34); Mean Corpuscular Volume 87.9 FL (87-102); Mean Platelet Volume 10.9 FL (9.6-12.0); Monocytes # 0.7 10*3/uL (0.11-0.8); Monocytes % 7.9 % (1.7-12.7); Neutrophils # 6.9 10*3/uL (1.4-7.4); Neutrophils % 74.1 % (38.7-73.9); Platelet Count 246 T/CUMM (130-400); Red Cell Distribution Width 14.1 % (9.3-17.3); White Blood Count 9.3 T/CUMM (4-12)
[2017-01-10 05:44] LABS: INR 2.4
[2017-01-10 05:50] LABS: Thyroid Stimulating Hormone 1.49 uIU/ml (0.358-3.74)
[2017-01-10 05:51] LABS: Calcium 8.2 MG/DL (8.5-10.1); Magnesium 2.3 MG/DL (1.8-2.4); Osmolality,Calculated 287.8 MOS/KG (273-304); Potassium 4.9 MMOL/L (3.5-5.1)
[2017-01-10 05:54] LABS: PT Patient Result 24.6 SECS
[2017-01-10] MEDS: LEVOTHYROXINE 25 MCG TABLET PO SCH (07:03)
[2017-01-10] MEDS: INSULIN LISPRO 100 UNIT/ML SUBCUT SCH ×4 (08:58→20:56)
[2017-01-10] MEDS: FUROSEMIDE 40 MG TABLET PO SCH (08:59)
[2017-01-10] MEDS: CARVEDILOL 25 MG TABLET PO SCH ×2 (09:00→20:56)
[2017-01-10] MEDS: DOCUSATE SODIUM 100 MG CAPSULE PO SCH ×2 (09:00→20:56)
[2017-01-10] MEDS: SPIRONOLACTONE 25 MG TABLET PO SCH (09:00)
[2017-01-10] MEDS: PANTOPRAZOLE 40 MG TABLET PO SCH (09:00)
[2017-01-10] MEDS: CEFTAROLINE 600 MG in SODIUM CHLORIDE 0.9% 50 ML IV SCH ×2 (09:59→20:56)
[2017-01-10] MEDS: INSULIN LISPRO PROTAMINE/LISPRO 75/25 100 UNIT/ML SUBCUT SCH ×2 (10:00→17:04)
[2017-01-10] MEDS: ASPIRIN EC 325 MG TABLET PO SCH (10:05)
[2017-01-10] MEDS: CLOPIDOGREL 75 MG TABLET PO SCH (12:56)
[2017-01-10] MEDS: WARFARIN 7.5 MG TABLET PO SCH (17:07)
[2017-01-10] MEDS: LISINOPRIL 2.5 MG TABLET PO SCH (20:56)
[2017-01-10] MEDS: LOVASTATIN 20 MG TABLET PO SCH (20:56)
[2017-01-10] MEDS: AMITRIPTYLINE 50 MG TABLET PO SCH (20:56)
[2017-01-11 09:54] LABS: Calcium 7.8 MG/DL (8.5-10.1); Osmolality,Calculated 288.3 MOS/KG (273-304); Potassium 4.1 MMOL/L (3.5-5.1)
[2017-01-11 10:00] LABS: Basophils % 0.3 % (0.0-0.8); Eosinophils # 0.2 10*3/uL (0.0-0.87); Eosinophils % 2.5 % (0.00-10.9); Hematocrit 30.4 VOL% (42.0-52.0); Immature Granulocytes % 1.2 %; Immature Granulocytes Absolute 0.11 #; Lymphocytes # 2.5 10*3/uL (1.4-4.0); Lymphocytes % 27.5 % (21.2-54.2); Mean Corpuscular HGB Conc 32.9 GM/DL (32-36); Mean Corpuscular Hemoglobin 29 PG (27-34); Mean Corpuscular Volume 87.9 FL (87-102); Mean Platelet Volume 10.8 FL (9.6-12.0); Monocytes # 0.9 10*3/uL (0.11-0.8); Monocytes % 10.2 % (1.7-12.7); Neutrophils # 5.3 10*3/uL (1.4-7.4); Neutrophils % 58.3 % (38.7-73.9); Platelet Count 234 T/CUMM (130-400); Red Blood Count 3.46 MC/CUMM (3.8-5.5); White Blood Count 9.1 T/CUMM (4-12)
[2017-01-11 10:15] LABS: INR 2.9; PT Patient Result 29.4 SECS
[2017-01-11] MEDS: LEVOTHYROXINE 25 MCG TABLET PO SCH (11:21)
[2017-01-11] MEDS: SPIRONOLACTONE 25 MG TABLET PO SCH (11:24)
[2017-01-11] MEDS: FUROSEMIDE 40 MG TABLET PO SCH (11:24)
[2017-01-11] MEDS: INSULIN LISPRO 100 UNIT/ML SUBCUT SCH ×4 (11:24→20:59)
[2017-01-11] MEDS: CARVEDILOL 25 MG TABLET PO SCH ×2 (11:24→21:00)
[2017-01-11] MEDS: INSULIN LISPRO PROTAMINE/LISPRO 75/25 100 UNIT/ML SUBCUT SCH ×2 (11:24→18:05)
[2017-01-11] MEDS: ASPIRIN EC 325 MG TABLET PO SCH (11:24)
[2017-01-11] MEDS: DOCUSATE SODIUM 100 MG CAPSULE PO SCH ×2 (11:24→21:04)
[2017-01-11] MEDS: CEFTAROLINE 600 MG in SODIUM CHLORIDE 0.9% 50 ML IV SCH (11:25)
[2017-01-11] MEDS: CLOPIDOGREL 75 MG TABLET PO SCH (11:25)
[2017-01-11] MEDS: PANTOPRAZOLE 40 MG TABLET PO SCH (11:25)
[2017-01-11] MEDS: CHLORHEXIDINE 4% SOLN 118 ML BOTTLE TOP SCH (11:58)
[2017-01-11] MEDS ORDERED: CLINDAMYCIN 300 MG CAPSULE PO SCH (14:00)
[2017-01-11] MEDS: WARFARIN 7.5 MG TABLET PO SCH (18:04)
[2017-01-11] MEDS: LISINOPRIL 2.5 MG TABLET PO SCH (21:00)
[2017-01-11] MEDS: AMITRIPTYLINE 50 MG TABLET PO SCH (21:01)
[2017-01-12] MEDS: LEVOTHYROXINE 125 MCG TABLET PO SCH (06:28)
[2017-01-12] MEDS: INSULIN LISPRO 100 UNIT/ML SUBCUT SCH ×4 (07:44→22:31)
[2017-01-12 08:15] LABS: INR 2.8
[2017-01-12 08:16] LABS: PT Patient Result 28.1 SECS
[2017-01-12] MEDS: INSULIN LISPRO PROTAMINE/LISPRO 75/25 100 UNIT/ML SUBCUT SCH ×2 (08:40→16:44)
[2017-01-12] MEDS: DOCUSATE SODIUM 100 MG CAPSULE PO SCH ×2 (08:42→20:35)
[2017-01-12] MEDS: FUROSEMIDE 40 MG TABLET PO SCH (08:42)
[2017-01-12] MEDS: CLOPIDOGREL 75 MG TABLET PO SCH (08:42)
[2017-01-12] MEDS: SPIRONOLACTONE 25 MG TABLET PO SCH (08:43)
[2017-01-12] MEDS: CARVEDILOL 25 MG TABLET PO SCH ×2 (08:43→20:35)
[2017-01-12] MEDS: PANTOPRAZOLE 40 MG TABLET PO SCH (08:43)
[2017-01-12] MEDS: ASPIRIN EC 325 MG TABLET PO SCH (08:43)
[2017-01-12] MEDS: COLLAGENASE OINT 30 GM TUBE TOP SCH (11:55)
[2017-01-12] MEDS: CHLORHEXIDINE 4% SOLN 118 ML BOTTLE TOP SCH (11:58)
[2017-01-12] MEDS: WARFARIN 7.5 MG TABLET PO SCH (17:43)
[2017-01-12] MEDS: LISINOPRIL 2.5 MG TABLET PO SCH (20:34)
[2017-01-12] MEDS: AMITRIPTYLINE 50 MG TABLET PO SCH (20:35)
[2017-01-13] MEDS: LEVOTHYROXINE 125 MCG TABLET PO SCH (06:49)
[2017-01-13 06:57] LABS: Basophils % 0.5 % (0.0-0.8); Eosinophils # 0.3 10*3/uL (0.0-0.87); Hematocrit 33.5 VOL% (42.0-52.0); Immature Granulocytes % 1.6 %; Immature Granulocytes Absolute 0.13 #; Lymphocytes # 1.9 10*3/uL (1.4-4.0); Lymphocytes % 23.5 % (21.2-54.2); Mean Corpuscular HGB Conc 32.8 GM/DL (32-36); Mean Corpuscular Hemoglobin 28 PG (27-34); Mean Corpuscular Volume 86.3 FL (87-102); Mean Platelet Volume 10.2 FL (9.6-12.0); Monocytes % 11.9 % (1.7-12.7); Neutrophils # 4.7 10*3/uL (1.4-7.4); Neutrophils % 58.5 % (38.7-73.9); Platelet Count 293 T/CUMM (130-400); Red Blood Count 3.88 MC/CUMM (3.8-5.5); Red Cell Distribution Width 14.1 % (9.3-17.3); White Blood Count 8.1 T/CUMM (4-12)
[2017-01-13 07:07] LABS: INR 2.5
[2017-01-13 07:37] LABS: Calcium 8.2 MG/DL (8.5-10.1); Osmolality,Calculated 288.3 MOS/KG (273-304)
[2017-01-13 07:52] LABS: PT Patient Result 25.8 SECS
[2017-01-13 08:09] VITALS: BP 138/73
[2017-01-13] MEDS: CLOPIDOGREL 75 MG TABLET PO SCH (09:40)
[2017-01-13] MEDS: CARVEDILOL 25 MG TABLET PO SCH (09:40)
[2017-01-13] MEDS: SPIRONOLACTONE 25 MG TABLET PO SCH (09:40)
[2017-01-13] MEDS: PANTOPRAZOLE 40 MG TABLET PO SCH (09:40)
[2017-01-13] MEDS: DOCUSATE SODIUM 100 MG CAPSULE PO SCH (09:40)
[2017-01-13] MEDS: FUROSEMIDE 40 MG TABLET PO SCH (09:41)
[2017-01-13] MEDS: INSULIN LISPRO 100 UNIT/ML SUBCUT SCH ×2 (09:41→11:56)
[2017-01-13] MEDS: INSULIN LISPRO PROTAMINE/LISPRO 75/25 100 UNIT/ML SUBCUT SCH (09:41)
[2017-01-13] MEDS: ASPIRIN EC 325 MG TABLET PO SCH (09:41)
[2017-01-13] MEDS: CHLORHEXIDINE 4% SOLN 118 ML BOTTLE TOP SCH (10:30)
[2017-01-13] MEDS: COLLAGENASE OINT 30 GM TUBE TOP SCH (10:30)
== END 2017-01-13 11:56 | disposition home health service (06) | DRG 603 ==
LOC: N.ED 06:12 → N.EDINP 09:34 → N.2E 10:55
PROVIDERS: ADMIT Internal Medicine; ATTEND Internal Medicine

== ENCOUNTER 2017-01-19 09:31 | Inpatient (IN) ==
[2017-01-19] MEDS ORDERED: GLUCAGON 1 MG VIAL IM PRN ×2 (13:19→17:57)
[2017-01-19] MEDS ORDERED: DEXTROSE 50% 25 GM/50 ML VIAL IV PRN ×2 (13:19→17:57)
[2017-01-19] MEDS ORDERED: NITROGLYCERIN SL 0.4 MG TABLET SL PRN (17:30)
[2017-01-19] MEDS: LISINOPRIL 2.5 MG TABLET PO SCH (20:17)
[2017-01-19] MEDS: AMITRIPTYLINE 100 MG TABLET PO SCH (20:17)
[2017-01-19] MEDS: INSULIN LISPRO 100 UNIT/ML SUBCUT SCH (20:18)
[2017-01-19] MEDS: MAGNESIUM OXIDE 400 MG TABLET PO SCH (20:18)
[2017-01-19] MEDS: CARVEDILOL 25 MG TABLET PO SCH (20:18)
[2017-01-20 05:41] LABS: Basophils % 0.3 % (0.0-0.8); Eosinophils # 0.1 10*3/uL (0.0-0.87); Eosinophils % 1.1 % (0.00-10.9); Hematocrit 29.2 VOL% (42.0-52.0); Hemoglobin 9.7 GM/DL (14.0-18.0); Immature Granulocytes % 0.5 %; Immature Granulocytes Absolute 0.04 #; Lymphocytes # 2.3 10*3/uL (1.4-4.0); Lymphocytes % 26.3 % (21.2-54.2); Mean Corpuscular HGB Conc 33.2 GM/DL (32-36); Mean Corpuscular Hemoglobin 28 PG (27-34); Mean Corpuscular Volume 84.1 FL (87-102); Mean Platelet Volume 11.6 FL (9.6-12.0); Monocytes # 1.3 10*3/uL (0.11-0.8); Monocytes % 14.5 % (1.7-12.7); Neutrophils % 57.3 % (38.7-73.9); Platelet Count 235 T/CUMM (130-400); Red Blood Count 3.47 MC/CUMM (3.8-5.5); White Blood Count 8.8 T/CUMM (4-12)
[2017-01-20 06:02] LABS: Calcium 8.7 MG/DL (8.5-10.1); Osmolality,Calculated 280.7 MOS/KG (273-304); Potassium 4.1 MMOL/L (3.5-5.1)
[2017-01-20] MEDS: LEVOTHYROXINE 125 MCG TABLET PO SCH (06:30)
[2017-01-20] MEDS: INSULIN ASPART PROTAMINE/ASPART 70/30 100 UNIT/ML SUBCUT SCH ×2 (07:57→16:59)
[2017-01-20] MEDS: INSULIN LISPRO 100 UNIT/ML SUBCUT SCH ×4 (07:58→20:47)
[2017-01-20] MEDS: CARVEDILOL 25 MG TABLET PO SCH ×3 (07:58→20:41)
[2017-01-20] MEDS: FUROSEMIDE 40 MG TABLET PO SCH (08:01)
[2017-01-20] MEDS: ASPIRIN EC 325 MG TABLET PO SCH (08:01)
[2017-01-20] MEDS: SPIRONOLACTONE 25 MG TABLET PO SCH (08:01)
[2017-01-20] MEDS: FAMOTIDINE 20 MG TABLET PO SCH (08:02)
[2017-01-20] MEDS: CLOPIDOGREL 75 MG TABLET PO SCH (08:02)
[2017-01-20] MEDS: MAGNESIUM OXIDE 400 MG TABLET PO SCH ×2 (08:02→20:41)
[2017-01-20 08:10] LABS: INR 1.9; PT Patient Result 19.4 SECS
[2017-01-20] MEDS ORDERED: PROPOFOL 500 MG/50 ML BOTTLE IV ONE ×2 (08:55→09:34)
[2017-01-20] MEDS: LISINOPRIL 2.5 MG TABLET PO SCH (20:41)
[2017-01-20] MEDS: AMITRIPTYLINE 100 MG TABLET PO SCH (20:41)
[2017-01-20] MEDS: HYDROmorphone 2 MG/1 ML VIAL IV PRN (20:46)
[2017-01-21] MEDS: HYDROmorphone 2 MG/1 ML VIAL IV PRN ×2 (03:21→20:49)
[2017-01-21 03:47] LABS: INR 1.5; PT Patient Result 15.3 SECS
[2017-01-21 03:58] LABS: Calcium 8.4 MG/DL (8.5-10.1); Osmolality,Calculated 288.3 MOS/KG (273-304); Potassium 4.2 MMOL/L (3.5-5.1)
[2017-01-21 04:08] LABS: Basophils % 0.4 % (0.0-0.8); Eosinophils # 0.2 10*3/uL (0.0-0.87); Eosinophils % 2.4 % (0.00-10.9); Hematocrit 28.7 VOL% (42.0-52.0); Hemoglobin 9.3 GM/DL (14.0-18.0); Immature Granulocytes % 0.4 %; Immature Granulocytes Absolute 0.03 #; Lymphocytes # 2.2 10*3/uL (1.4-4.0); Lymphocytes % 31.2 % (21.2-54.2); Mean Corpuscular HGB Conc 32.4 GM/DL (32-36); Mean Corpuscular Hemoglobin 28 PG (27-34); Mean Corpuscular Volume 86.7 FL (87-102); Mean Platelet Volume 11.2 FL (9.6-12.0); Monocytes # 1.1 10*3/uL (0.11-0.8); Monocytes % 15.1 % (1.7-12.7); Neutrophils # 3.6 10*3/uL (1.4-7.4); Neutrophils % 50.5 % (38.7-73.9); Platelet Count 220 T/CUMM (130-400); Red Blood Count 3.31 MC/CUMM (3.8-5.5); Red Cell Distribution Width 13.9 % (9.3-17.3); White Blood Count 7.1 T/CUMM (4-12)
[2017-01-21] MEDS: LEVOTHYROXINE 125 MCG TABLET PO SCH (06:25)
[2017-01-21] MEDS: INSULIN LISPRO 100 UNIT/ML SUBCUT SCH ×4 (09:11→20:46)
[2017-01-21] MEDS: FAMOTIDINE 20 MG TABLET PO SCH (09:17)
[2017-01-21] MEDS: MAGNESIUM OXIDE 400 MG TABLET PO SCH ×2 (09:17→20:45)
[2017-01-21] MEDS: CLOPIDOGREL 75 MG TABLET PO SCH (09:17)
[2017-01-21] MEDS: ASPIRIN EC 325 MG TABLET PO SCH (09:17)
[2017-01-21] MEDS: SPIRONOLACTONE 25 MG TABLET PO SCH (09:17)
[2017-01-21] MEDS: FUROSEMIDE 40 MG TABLET PO SCH (09:17)
[2017-01-21] MEDS: INSULIN ASPART PROTAMINE/ASPART 70/30 100 UNIT/ML SUBCUT SCH ×2 (09:18→16:56)
[2017-01-21] MEDS: CARVEDILOL 25 MG TABLET PO SCH ×2 (09:18→20:45)
[2017-01-21] MEDS: PIPERACILLIN/TAZOBACTAM 3,375 MG in SODIUM CHLORIDE 0.9% 100 ML IV SCH ×2 (14:10→20:45)
[2017-01-21] MEDS: WARFARIN 7.5 MG TABLET PO SCH (17:33)
[2017-01-21] MEDS: AMITRIPTYLINE 100 MG TABLET PO SCH (20:46)
[2017-01-21] MEDS: LISINOPRIL 2.5 MG TABLET PO SCH (20:46)
[2017-01-22] MEDS: PIPERACILLIN/TAZOBACTAM 3,375 MG in SODIUM CHLORIDE 0.9% 100 ML IV SCH ×3 (05:58→21:47)
[2017-01-22] MEDS: LEVOTHYROXINE 125 MCG TABLET PO SCH (05:58)
[2017-01-22] MEDS: INSULIN LISPRO 100 UNIT/ML SUBCUT SCH ×4 (08:19→21:51)
[2017-01-22] MEDS: INSULIN ASPART PROTAMINE/ASPART 70/30 100 UNIT/ML SUBCUT SCH ×2 (09:11→16:16)
[2017-01-22] MEDS: FUROSEMIDE 40 MG TABLET PO SCH (09:11)
[2017-01-22] MEDS: ASPIRIN EC 325 MG TABLET PO SCH (09:11)
[2017-01-22] MEDS: CARVEDILOL 25 MG TABLET PO SCH ×2 (09:11→21:47)
[2017-01-22] MEDS: SPIRONOLACTONE 25 MG TABLET PO SCH (09:11)
[2017-01-22] MEDS: CLOPIDOGREL 75 MG TABLET PO SCH (09:11)
[2017-01-22] MEDS: MAGNESIUM OXIDE 400 MG TABLET PO SCH ×2 (09:11→21:47)
[2017-01-22] MEDS: FAMOTIDINE 20 MG TABLET PO SCH (09:11)
[2017-01-22 11:34] LABS: INR 1.2
[2017-01-22] MEDS: WARFARIN 7.5 MG TABLET PO SCH (17:58)
[2017-01-22] MEDS: LISINOPRIL 2.5 MG TABLET PO SCH (21:47)
[2017-01-22] MEDS: AMITRIPTYLINE 100 MG TABLET PO SCH (21:47)
[2017-01-23 02:47] LABS: Basophils # 0.1 10*3/uL (0.0-0.2); Basophils % 0.9 % (0.0-0.8); Eosinophils # 0.4 10*3/uL (0.0-0.87); Eosinophils % 4.5 % (0.00-10.9); Hematocrit 29.9 VOL% (42.0-52.0); Hemoglobin 9.8 GM/DL (14.0-18.0); Immature Granulocytes % 0.4 %; Immature Granulocytes Absolute 0.03 #; Lymphocytes # 2.4 10*3/uL (1.4-4.0); Lymphocytes % 29.8 % (21.2-54.2); Mean Corpuscular HGB Conc 32.8 GM/DL (32-36); Mean Corpuscular Hemoglobin 28 PG (27-34); Mean Corpuscular Volume 85.7 FL (87-102); Monocytes # 0.9 10*3/uL (0.11-0.8); Monocytes % 11.7 % (1.7-12.7); Neutrophils # 4.2 10*3/uL (1.4-7.4); Neutrophils % 52.7 % (38.7-73.9); Platelet Count 261 T/CUMM (130-400); Red Blood Count 3.49 MC/CUMM (3.8-5.5); Red Cell Distribution Width 13.7 % (9.3-17.3); White Blood Count 7.9 T/CUMM (4-12)
[2017-01-23 02:54] LABS: INR 1.3
[2017-01-23 03:05] LABS: Calcium 8.2 MG/DL (8.5-10.1); Osmolality,Calculated 287.3 MOS/KG (273-304); Potassium 4.1 MMOL/L (3.5-5.1)
[2017-01-23] MEDS: PIPERACILLIN/TAZOBACTAM 3,375 MG in SODIUM CHLORIDE 0.9% 100 ML IV SCH ×3 (06:03→21:09)
[2017-01-23] MEDS: LEVOTHYROXINE 125 MCG TABLET PO SCH (06:07)
[2017-01-23] MEDS: ASPIRIN EC 325 MG TABLET PO SCH (08:45)
[2017-01-23] MEDS: FAMOTIDINE 20 MG TABLET PO SCH (08:45)
[2017-01-23] MEDS: INSULIN LISPRO 100 UNIT/ML SUBCUT SCH ×4 (08:45→21:11)
[2017-01-23] MEDS: CARVEDILOL 25 MG TABLET PO SCH ×2 (08:45→21:10)
[2017-01-23] MEDS: SPIRONOLACTONE 25 MG TABLET PO SCH (08:46)
[2017-01-23] MEDS: FUROSEMIDE 40 MG TABLET PO SCH (08:46)
[2017-01-23] MEDS: CLOPIDOGREL 75 MG TABLET PO SCH (08:46)
[2017-01-23] MEDS: BACITRACIN OINT 0.9 GM PACK TOP SCH (08:46)
[2017-01-23] MEDS: MAGNESIUM OXIDE 400 MG TABLET PO SCH ×2 (08:46→21:10)
[2017-01-23] MEDS: INSULIN ASPART PROTAMINE/ASPART 70/30 100 UNIT/ML SUBCUT SCH ×2 (09:58→16:35)
[2017-01-23] MEDS: SODIUM HYPOCHLORITE 0.25% IRRIG 473 ML BOTTLE TOP SCH (17:45)
[2017-01-23] MEDS: CHLORHEXIDINE 4% SOLN 118 ML BOTTLE TOP SCH (17:45)
[2017-01-23] MEDS: WARFARIN 7.5 MG TABLET PO SCH (18:24)
[2017-01-23] MEDS ORDERED: CIPROFLOXACIN 500 MG TABLET PO SCH (21:00)
[2017-01-23] MEDS: AMITRIPTYLINE 100 MG TABLET PO SCH (21:09)
[2017-01-23] MEDS: LISINOPRIL 2.5 MG TABLET PO SCH (21:10)
[2017-01-24 05:42] LABS: INR 1.5; PT Patient Result 15.7 SECS
[2017-01-24] MEDS: PIPERACILLIN/TAZOBACTAM 3,375 MG in SODIUM CHLORIDE 0.9% 100 ML IV SCH (06:07)
[2017-01-24] MEDS: LEVOTHYROXINE 125 MCG TABLET PO SCH (06:09)
[2017-01-24] MEDS: INSULIN LISPRO 100 UNIT/ML SUBCUT SCH ×2 (08:03→12:37)
[2017-01-24] MEDS: INSULIN ASPART PROTAMINE/ASPART 70/30 100 UNIT/ML SUBCUT SCH (08:04)
[2017-01-24] MEDS: FUROSEMIDE 40 MG TABLET PO SCH (08:56)
[2017-01-24] MEDS: SPIRONOLACTONE 25 MG TABLET PO SCH (08:56)
[2017-01-24] MEDS: ASPIRIN EC 325 MG TABLET PO SCH (08:56)
[2017-01-24] MEDS: CARVEDILOL 25 MG TABLET PO SCH (08:56)
[2017-01-24] MEDS: FAMOTIDINE 20 MG TABLET PO SCH (08:57)
[2017-01-24] MEDS: MAGNESIUM OXIDE 400 MG TABLET PO SCH (08:57)
[2017-01-24] MEDS: CLOPIDOGREL 75 MG TABLET PO SCH (08:57)
[2017-01-24 11:44] VITALS: BP 147/79
[2017-01-24] MEDS: CHLORHEXIDINE 4% SOLN 118 ML BOTTLE TOP SCH (11:45)
[2017-01-24] MEDS: BACITRACIN OINT 0.9 GM PACK TOP SCH (11:45)
[2017-01-24] MEDS: SODIUM HYPOCHLORITE 0.25% IRRIG 473 ML BOTTLE TOP SCH (11:45)
[2017-01-24] MEDS ORDERED: AMOXICILLIN/CLAV 875 MG TABLET PO SCH (17:00)
== END 2017-01-24 16:25 | disposition home health service (06) | DRG 617 ==
LOC: N.3E 12:10
PROVIDERS: ADMIT Surgery; ATTEND Surgery

== ENCOUNTER 2017-02-17 13:59 | Inpatient (IN) ==
[2017-02-17] MEDS ORDERED: GLUCAGON 1 MG VIAL IM PRN (17:34)
[2017-02-17] MEDS ORDERED: DEXTROSE 50% 25 GM/50 ML VIAL IV PRN (17:34)
[2017-02-17] MEDS: INSULIN REGULAR 100 UNIT/ML SUBCUT SCH (20:55)
[2017-02-18] MEDS: INSULIN REGULAR 100 UNIT/ML SUBCUT SCH ×4 (07:47→21:26)
[2017-02-18] MEDS ORDERED: VANCOMYCIN INJ 1,750 MG in SODIUM CHLORIDE 0.9% 500 ML IV ONE (08:30)
[2017-02-18] MEDS ORDERED: NITROGLYCERIN SL 0.4 MG TABLET SL PRN (08:55)
[2017-02-18 09:19] LABS: Basophils % 0.2 % (0.0-0.8); Eosinophils % 0.1 % (0.00-10.9); Hemoglobin 9.4 GM/DL (14.0-18.0); Immature Granulocytes % 0.6 %; Immature Granulocytes Absolute 0.09 #; Lymphocytes # 1.6 10*3/uL (1.4-4.0); Lymphocytes % 11.3 % (21.2-54.2); Mean Corpuscular HGB Conc 32.4 GM/DL (32-36); Mean Corpuscular Hemoglobin 27 PG (27-34); Mean Corpuscular Volume 83.8 FL (87-102); Mean Platelet Volume 10.9 FL (9.6-12.0); Monocytes # 1.5 10*3/uL (0.11-0.8); Monocytes % 10.4 % (1.7-12.7); Neutrophils # 11.2 10*3/uL (1.4-7.4); Neutrophils % 77.4 % (38.7-73.9); Platelet Count 241 T/CUMM (130-400); Red Blood Count 3.46 MC/CUMM (3.8-5.5); Red Cell Distribution Width 15.1 % (9.3-17.3); White Blood Count 14.5 T/CUMM (4-12)
[2017-02-18 09:29] LABS: INR 1.5; PT Patient Result 15.7 SECS
[2017-02-18 09:43] LABS: Partial Thromboplastin Time 53.5 SECS (0-40)
[2017-02-18 09:52] LABS: Albumin 2.6 G/DL (3.4-5.0); Bilirubin,Total 0.9 MG/DL (0.2-1.0); Calcium 8.1 MG/DL (8.5-10.1); Osmolality,Calculated 274.2 MOS/KG (273-304); Potassium 4.8 MMOL/L (3.5-5.1); Total Protein 6.5 G/DL (6.4-8.3)
[2017-02-18] MEDS: CLOPIDOGREL 75 MG TABLET PO SCH (10:24)
[2017-02-18] MEDS: FAMOTIDINE 20 MG TABLET PO SCH (10:24)
[2017-02-18] MEDS: ASPIRIN EC 325 MG TABLET PO SCH (10:24)
[2017-02-18] MEDS: FUROSEMIDE 40 MG TABLET PO SCH (10:24)
[2017-02-18] MEDS: SPIRONOLACTONE 25 MG TABLET PO SCH (10:24)
[2017-02-18] MEDS: MAGNESIUM OXIDE 400 MG TABLET PO SCH ×2 (10:24→21:19)
[2017-02-18] MEDS: CARVEDILOL 25 MG TABLET PO SCH ×2 (11:16→16:58)
[2017-02-18] MEDS ORDERED: BUPIVACAINE 0.5% 50 ML VIAL ONE (11:19)
[2017-02-18] MEDS ORDERED: PROPOFOL 200 MG/20 ML VIAL IV ONE (12:39)
[2017-02-18] MEDS ORDERED: MIDAZOLAM 2 MG/2 ML VIAL ONE (12:40)
[2017-02-18] MEDS ORDERED: fentaNYL 100 MCG/2 ML VIAL ONE (12:40)
[2017-02-18] MEDS ORDERED: DEXTROSE 50% 25 GM/50 ML VIAL IV PRN (14:11)
[2017-02-18] MEDS ORDERED: GLUCAGON 1 MG VIAL IM PRN (14:11)
[2017-02-18] MEDS: CILOSTAZOL 50 MG TABLET PO SCH ×2 (15:17→21:20)
[2017-02-18] MEDS: PIPERACILLIN/TAZOBACTAM 3,375 MG in SODIUM CHLORIDE 0.9% 100 ML IV SCH (15:20)
[2017-02-18] MEDS: INSULIN ASPART PROTAMINE/ASPART 70/30 100 UNIT/ML SUBCUT SCH (16:59)
[2017-02-18] MEDS: LISINOPRIL 2.5 MG TABLET PO SCH (21:19)
[2017-02-18] MEDS: AMITRIPTYLINE 100 MG TABLET PO SCH (21:20)
[2017-02-18] MEDS: VANCOMYCIN INJ 1,750 MG in SODIUM CHLORIDE 0.9% 500 ML IV SCH (21:20)
[2017-02-19] MEDS: PIPERACILLIN/TAZOBACTAM 3,375 MG in SODIUM CHLORIDE 0.9% 100 ML IV SCH ×4 (00:22→21:29)
[2017-02-19] MEDS: LEVOTHYROXINE 125 MCG TABLET PO SCH (06:29)
[2017-02-19] MEDS: INSULIN REGULAR 100 UNIT/ML SUBCUT SCH ×4 (08:42→21:30)
[2017-02-19] MEDS: CARVEDILOL 25 MG TABLET PO SCH ×2 (08:57→17:28)
[2017-02-19] MEDS: MAGNESIUM OXIDE 400 MG TABLET PO SCH ×2 (08:58→21:30)
[2017-02-19] MEDS: FUROSEMIDE 40 MG TABLET PO SCH (08:58)
[2017-02-19] MEDS: FAMOTIDINE 20 MG TABLET PO SCH (08:58)
[2017-02-19] MEDS: ASPIRIN EC 325 MG TABLET PO SCH (08:58)
[2017-02-19] MEDS: SPIRONOLACTONE 25 MG TABLET PO SCH (08:58)
[2017-02-19] MEDS: CILOSTAZOL 50 MG TABLET PO SCH ×2 (08:58→21:30)
[2017-02-19] MEDS: CLOPIDOGREL 75 MG TABLET PO SCH (08:58)
[2017-02-19] MEDS: INSULIN ASPART PROTAMINE/ASPART 70/30 100 UNIT/ML SUBCUT SCH ×2 (08:59→17:27)
[2017-02-19] MEDS ORDERED: oxyCODONE/ACETAMINOPHEN 5-325 MG TABLET PO PRN ×3 (09:49→11:52)
[2017-02-19] MEDS: VANCOMYCIN INJ 1,750 MG in SODIUM CHLORIDE 0.9% 500 ML IV SCH ×2 (10:35→22:45)
[2017-02-19] MEDS: SODIUM HYPOCHLORITE 0.25% IRRIG 473 ML BOTTLE TOP SCH (10:38)
[2017-02-19] MEDS: oxyCODONE/ACETAMINOPHEN 5-325 MG TABLET PO PRN (19:02)
[2017-02-19] MEDS: AMITRIPTYLINE 100 MG TABLET PO SCH (21:30)
[2017-02-19] MEDS: LISINOPRIL 2.5 MG TABLET PO SCH (21:30)
[2017-02-19 21:46] LABS: Calcium 7.6 MG/DL (8.5-10.1); Osmolality,Calculated 279.8 MOS/KG (273-304); Potassium 4.2 MMOL/L (3.5-5.1)
[2017-02-20] MEDS: PIPERACILLIN/TAZOBACTAM 3,375 MG in SODIUM CHLORIDE 0.9% 100 ML IV SCH ×3 (05:40→21:23)
[2017-02-20] MEDS: LEVOTHYROXINE 125 MCG TABLET PO SCH (05:40)
[2017-02-20] MEDS: INSULIN REGULAR 100 UNIT/ML SUBCUT SCH ×4 (07:51→21:25)
[2017-02-20] MEDS: INSULIN ASPART PROTAMINE/ASPART 70/30 100 UNIT/ML SUBCUT SCH ×2 (07:51→16:50)
[2017-02-20] MEDS: ASPIRIN EC 325 MG TABLET PO SCH (08:20)
[2017-02-20] MEDS: MAGNESIUM OXIDE 400 MG TABLET PO SCH ×2 (08:20→21:24)
[2017-02-20] MEDS: CARVEDILOL 25 MG TABLET PO SCH ×2 (08:20→16:55)
[2017-02-20] MEDS: SPIRONOLACTONE 25 MG TABLET PO SCH (08:20)
[2017-02-20] MEDS: FUROSEMIDE 40 MG TABLET PO SCH (08:20)
[2017-02-20] MEDS: CILOSTAZOL 50 MG TABLET PO SCH ×2 (08:20→21:24)
[2017-02-20] MEDS: CLOPIDOGREL 75 MG TABLET PO SCH (08:23)
[2017-02-20] MEDS: FAMOTIDINE 20 MG TABLET PO SCH (08:23)
[2017-02-20] MEDS: oxyCODONE/ACETAMINOPHEN 5-325 MG TABLET PO PRN ×2 (08:23→16:50)
[2017-02-20] MEDS: SODIUM HYPOCHLORITE 0.25% IRRIG 473 ML BOTTLE TOP SCH (08:30)
[2017-02-20] MEDS ORDERED: VANCOMYCIN INJ 1,750 MG in SODIUM CHLORIDE 0.9% 500 ML IV SCH (09:00)
[2017-02-20 12:44] LABS: Calcium 7.9 MG/DL (8.5-10.1); Osmolality,Calculated 276.1 MOS/KG (273-304); Potassium 4.4 MMOL/L (3.5-5.1)
[2017-02-20] MEDS: AMITRIPTYLINE 100 MG TABLET PO SCH (21:24)
[2017-02-20] MEDS: LISINOPRIL 2.5 MG TABLET PO SCH (21:24)
[2017-02-21] MEDS: PIPERACILLIN/TAZOBACTAM 3,375 MG in SODIUM CHLORIDE 0.9% 100 ML IV SCH (05:39)
[2017-02-21] MEDS: LEVOTHYROXINE 125 MCG TABLET PO SCH (05:39)
[2017-02-21] MEDS: INSULIN REGULAR 100 UNIT/ML SUBCUT SCH ×4 (07:22→21:27)
[2017-02-21] MEDS: INSULIN ASPART PROTAMINE/ASPART 70/30 100 UNIT/ML SUBCUT SCH ×2 (07:22→16:46)
[2017-02-21] MEDS: FUROSEMIDE 40 MG TABLET PO SCH (08:25)
[2017-02-21] MEDS: ASPIRIN EC 325 MG TABLET PO SCH (08:25)
[2017-02-21] MEDS: SPIRONOLACTONE 25 MG TABLET PO SCH (08:25)
[2017-02-21] MEDS: CARVEDILOL 25 MG TABLET PO SCH ×2 (08:25→16:45)
[2017-02-21] MEDS: FAMOTIDINE 20 MG TABLET PO SCH (08:26)
[2017-02-21] MEDS: CILOSTAZOL 50 MG TABLET PO SCH ×2 (08:26→21:26)
[2017-02-21] MEDS: CLOPIDOGREL 75 MG TABLET PO SCH (08:26)
[2017-02-21] MEDS: MAGNESIUM OXIDE 400 MG TABLET PO SCH ×2 (08:26→21:26)
[2017-02-21] MEDS: oxyCODONE/ACETAMINOPHEN 5-325 MG TABLET PO PRN ×2 (10:17→16:45)
[2017-02-21] MEDS: ENOXAPARIN 40 MG/0.4 ML SYRINGE SUBCUT SCH ×2 (10:17→21:26)
[2017-02-21 10:52] LABS: INR 1.1
[2017-02-21] MEDS: SODIUM HYPOCHLORITE 0.25% IRRIG 473 ML BOTTLE TOP SCH (11:09)
[2017-02-21] MEDS: AMPICILLIN/SULBACTAM 3,000 MG in SODIUM CHLORIDE 0.9% 100 ML IV SCH ×2 (13:29→18:07)
[2017-02-21] MEDS: DAPTOMYCIN IV SCH (14:09)
[2017-02-21] MEDS: SODIUM CHLORIDE 0.9% IV SCH (14:09)
[2017-02-21] MEDS: WARFARIN 7.5 MG TABLET PO SCH (18:07)
[2017-02-21] MEDS: AMITRIPTYLINE 100 MG TABLET PO SCH (21:26)
[2017-02-21] MEDS: LISINOPRIL 2.5 MG TABLET PO SCH (21:32)
[2017-02-22] MEDS: LEVOTHYROXINE 125 MCG TABLET PO SCH (05:59)
[2017-02-22] MEDS: AMPICILLIN/SULBACTAM 3,000 MG in SODIUM CHLORIDE 0.9% 100 ML IV SCH ×4 (06:00→18:07)
[2017-02-22] MEDS: INSULIN REGULAR 100 UNIT/ML SUBCUT SCH ×4 (07:45→20:49)
[2017-02-22] MEDS: INSULIN ASPART PROTAMINE/ASPART 70/30 100 UNIT/ML SUBCUT SCH ×2 (07:46→16:38)
[2017-02-22] MEDS: ASPIRIN EC 325 MG TABLET PO SCH (08:50)
[2017-02-22] MEDS: FAMOTIDINE 20 MG TABLET PO SCH (08:50)
[2017-02-22] MEDS: MAGNESIUM OXIDE 400 MG TABLET PO SCH ×2 (08:50→20:48)
[2017-02-22] MEDS: FUROSEMIDE 40 MG TABLET PO SCH (08:50)
[2017-02-22] MEDS: SPIRONOLACTONE 25 MG TABLET PO SCH (08:50)
[2017-02-22] MEDS: CLOPIDOGREL 75 MG TABLET PO SCH (08:50)
[2017-02-22] MEDS: CILOSTAZOL 50 MG TABLET PO SCH ×2 (08:50→20:48)
[2017-02-22] MEDS: CARVEDILOL 25 MG TABLET PO SCH ×2 (08:50→17:53)
[2017-02-22] MEDS: oxyCODONE/ACETAMINOPHEN 5-325 MG TABLET PO PRN (09:08)
[2017-02-22] MEDS: ENOXAPARIN 40 MG/0.4 ML SYRINGE SUBCUT SCH ×2 (10:15→20:59)
[2017-02-22] MEDS: DAPTOMYCIN IV SCH (15:02)
[2017-02-22] MEDS: SODIUM CHLORIDE 0.9% IV SCH (15:02)
[2017-02-22] MEDS: WARFARIN 7.5 MG TABLET PO SCH (17:54)
[2017-02-22] MEDS ORDERED: DOCUSATE SODIUM 100 MG CAPSULE PO PRN (19:22)
[2017-02-22] MEDS: AMITRIPTYLINE 100 MG TABLET PO SCH (20:48)
[2017-02-22] MEDS: LISINOPRIL 2.5 MG TABLET PO SCH (20:48)
[2017-02-23] MEDS: AMPICILLIN/SULBACTAM 3,000 MG in SODIUM CHLORIDE 0.9% 100 ML IV SCH ×4 (00:29→18:33)
[2017-02-23] MEDS: LEVOTHYROXINE 125 MCG TABLET PO SCH (06:14)
[2017-02-23] MEDS: INSULIN REGULAR 100 UNIT/ML SUBCUT SCH ×4 (08:28→21:07)
[2017-02-23] MEDS: MAGNESIUM OXIDE 400 MG TABLET PO SCH ×2 (08:34→21:07)
[2017-02-23] MEDS: CARVEDILOL 25 MG TABLET PO SCH ×2 (08:34→17:14)
[2017-02-23] MEDS: CLOPIDOGREL 75 MG TABLET PO SCH (08:34)
[2017-02-23] MEDS: CILOSTAZOL 50 MG TABLET PO SCH ×2 (08:34→21:08)
[2017-02-23] MEDS: SPIRONOLACTONE 25 MG TABLET PO SCH (08:34)
[2017-02-23] MEDS: FAMOTIDINE 20 MG TABLET PO SCH (08:34)
[2017-02-23] MEDS: FUROSEMIDE 40 MG TABLET PO SCH (08:34)
[2017-02-23] MEDS: ASPIRIN EC 325 MG TABLET PO SCH (08:34)
[2017-02-23] MEDS: INSULIN ASPART PROTAMINE/ASPART 70/30 100 UNIT/ML SUBCUT SCH ×2 (08:36→17:14)
[2017-02-23] MEDS: INDOMETHACIN 25 MG CAPSULE PO SCH ×2 (10:10→21:07)
[2017-02-23] MEDS: ENOXAPARIN 40 MG/0.4 ML SYRINGE SUBCUT SCH ×2 (11:17→21:07)
[2017-02-23] MEDS: SODIUM CHLORIDE 0.9% IV SCH (14:46)
[2017-02-23] MEDS: DAPTOMYCIN IV SCH (14:46)
[2017-02-23] MEDS: WARFARIN 7.5 MG TABLET PO SCH (17:14)
[2017-02-23] MEDS: AMITRIPTYLINE 100 MG TABLET PO SCH (21:07)
[2017-02-23] MEDS: LISINOPRIL 2.5 MG TABLET PO SCH (21:08)
[2017-02-24] MEDS: AMPICILLIN/SULBACTAM 3,000 MG in SODIUM CHLORIDE 0.9% 100 ML IV SCH ×3 (00:44→13:47)
[2017-02-24] MEDS: LEVOTHYROXINE 125 MCG TABLET PO SCH (06:17)
[2017-02-24 07:23] LABS: Basophils % 0.4 % (0.0-0.8); Eosinophils # 0.2 10*3/uL (0.0-0.87); Eosinophils % 3.6 % (0.00-10.9); Hematocrit 26.5 VOL% (42.0-52.0); Hemoglobin 8.6 GM/DL (14.0-18.0); Immature Granulocytes % 1.9 %; Immature Granulocytes Absolute 0.13 #; Lymphocytes # 1.4 10*3/uL (1.4-4.0); Lymphocytes % 21.3 % (21.2-54.2); Mean Corpuscular HGB Conc 32.5 GM/DL (32-36); Mean Corpuscular Hemoglobin 27 PG (27-34); Mean Platelet Volume 9.7 FL (9.6-12.0); Monocytes # 0.8 10*3/uL (0.11-0.8); Monocytes % 11.5 % (1.7-12.7); Neutrophils # 4.1 10*3/uL (1.4-7.4); Neutrophils % 61.3 % (38.7-73.9); Platelet Count 409 T/CUMM (130-400); Red Blood Count 3.23 MC/CUMM (3.8-5.5); White Blood Count 6.7 T/CUMM (4-12)
[2017-02-24 07:32] LABS: INR 1.3; PT Patient Result 13.4 SECS
[2017-02-24 07:51] LABS: Calcium 8.4 MG/DL (8.5-10.1); Osmolality,Calculated 284.1 MOS/KG (273-304); Potassium 3.9 MMOL/L (3.5-5.1)
[2017-02-24] MEDS: INSULIN ASPART PROTAMINE/ASPART 70/30 100 UNIT/ML SUBCUT SCH (08:16)
[2017-02-24] MEDS: INSULIN REGULAR 100 UNIT/ML SUBCUT SCH ×2 (08:16→11:44)
[2017-02-24] MEDS: FUROSEMIDE 40 MG TABLET PO SCH (09:06)
[2017-02-24] MEDS: SPIRONOLACTONE 25 MG TABLET PO SCH (09:06)
[2017-02-24] MEDS: CARVEDILOL 25 MG TABLET PO SCH (09:06)
[2017-02-24] MEDS: ASPIRIN EC 325 MG TABLET PO SCH (09:06)
[2017-02-24] MEDS: INDOMETHACIN 25 MG CAPSULE PO SCH (09:06)
[2017-02-24] MEDS: CLOPIDOGREL 75 MG TABLET PO SCH (09:07)
[2017-02-24] MEDS: ENOXAPARIN 40 MG/0.4 ML SYRINGE SUBCUT SCH (09:07)
[2017-02-24] MEDS: CILOSTAZOL 50 MG TABLET PO SCH (09:07)
[2017-02-24] MEDS: FAMOTIDINE 20 MG TABLET PO SCH (09:07)
[2017-02-24] MEDS: MAGNESIUM OXIDE 400 MG TABLET PO SCH (09:07)
[2017-02-24 11:56] VITALS: BP 153/75
== END 2017-02-24 14:15 | disposition home health service (06) | DRG 240 ==
LOC: N.ADMINP 14:45 → N.3E 17:03
PROVIDERS: ADMIT Surgery; ATTEND Surgery

== ENCOUNTER 2018-05-24 18:22 | Observation (INO) ==
[2018-05-24] MEDS ORDERED: METOPROLOL TARTRATE 5 MG/5 ML VIAL IV STA (19:12)
[2018-05-24] MEDS ORDERED: MORPHINE 4 MG/1 ML VIAL IV STA (19:12)
[2018-05-24] MEDS ORDERED: ONDANSETRON 4 MG/2 ML VIAL IV ONE (19:12)
[2018-05-24 19:13] LABS: Basophils % 0.5 % (0.0-0.8); Eosinophils # 0.1 10*3/uL (0.0-0.87); Eosinophils % 1.3 % (0.00-10.9); Hematocrit 31.2 VOL% (42.0-52.0); Hemoglobin 9.3 GM/DL (14.0-18.0); Immature Granulocytes % 0.6 %; Immature Granulocytes Absolute 0.05 #; Lymphocytes # 1.9 10*3/uL (1.4-4.0); Lymphocytes % 22.9 % (21.2-54.2); Mean Corpuscular HGB Conc 29.8 GM/DL (32-36); Mean Corpuscular Hemoglobin 26 PG (27-34); Mean Corpuscular Volume 85.5 FL (87-102); Mean Platelet Volume 10.9 FL (9.6-12.0); Monocytes # 0.7 10*3/uL (0.11-0.8); Monocytes % 8.1 % (1.7-12.7); Neutrophils # 5.6 10*3/uL (1.4-7.4); Neutrophils % 66.6 % (38.7-73.9); Platelet Count 244 T/CUMM (130-400); Red Blood Count 3.65 MC/CUMM (3.8-5.5); White Blood Count 8.4 T/CUMM (4-12)
[2018-05-24 19:24] LABS: INR 2.1
[2018-05-24 19:25] LABS: PT Patient Result 22.2 SECS
[2018-05-24 19:31] LABS: Albumin 3.3 G/DL (3.4-5.0); Bilirubin,Total 0.5 MG/DL (0.2-1.0); Calcium 7.9 MG/DL (8.5-10.1); Osmolality,Calculated 286.5 MOS/KG (273-304); Potassium 4.5 MMOL/L (3.5-5.1); Total Protein 7.3 G/DL (6.4-8.3)
[2018-05-24] MEDS ORDERED: ONDANSETRON 4 MG/2 ML VIAL IV PRN (20:06)
[2018-05-24] MEDS ORDERED: MORPHINE 4 MG/1 ML VIAL IV PRN (20:06)
[2018-05-24 20:36] LABS: Troponin I 0.021 NG/ML (0.00-0.045)
[2018-05-24] MEDS: DEXTROSE 5% NACL 0.45% 1,000 ML IV SCH (21:42)
[2018-05-24 23:35] LABS: CKMB % 7.8 %
[2018-05-24 23:57] LABS: Troponin I 1.26 NG/ML (0.00-0.045)
[2018-05-25 04:54] LABS: CKMB % 9.2 %
[2018-05-25 05:12] LABS: Troponin I 2.42 NG/ML (0.00-0.045)
[2018-05-25 05:30] LABS: Basophils % 0.4 % (0.0-0.8); Eosinophils # 0.1 10*3/uL (0.0-0.87); Eosinophils % 1.6 % (0.00-10.9); Hematocrit 28.2 VOL% (42.0-52.0); Hemoglobin 8.4 GM/DL (14.0-18.0); Immature Granulocytes % 0.4 %; Immature Granulocytes Absolute 0.04 #; Lymphocytes # 2.7 10*3/uL (1.4-4.0); Lymphocytes % 30.1 % (21.2-54.2); Mean Corpuscular HGB Conc 29.8 GM/DL (32-36); Mean Corpuscular Hemoglobin 25 PG (27-34); Mean Corpuscular Volume 85.2 FL (87-102); Mean Platelet Volume 11.4 FL (9.6-12.0); Monocytes # 1.1 10*3/uL (0.11-0.8); Monocytes % 12.4 % (1.7-12.7); Neutrophils # 4.9 10*3/uL (1.4-7.4); Neutrophils % 55.1 % (38.7-73.9); Platelet Count 241 T/CUMM (130-400); Red Blood Count 3.31 MC/CUMM (3.8-5.5); Red Cell Distribution Width 15.1 % (9.3-17.3); White Blood Count 8.9 T/CUMM (4-12)
[2018-05-25 05:37] LABS: Albumin 2.7 G/DL (3.4-5.0); Bilirubin,Total 0.5 MG/DL (0.2-1.0); Calcium 7.4 MG/DL (8.5-10.1); Osmolality,Calculated 282.4 MOS/KG (273-304); Potassium 4.3 MMOL/L (3.5-5.1); Total Protein 6.5 G/DL (6.4-8.3)
[2018-05-25] MEDS: DEXTROSE 5% NACL 0.45% 1,000 ML IV SCH (08:29)
[2018-05-25] MEDS ORDERED: PANTOPRAZOLE 40 MG TABLET PO SCH (09:00)
[2018-05-25] MEDS ORDERED: NITROGLYCERIN SL 0.4 MG TABLET SL PRN (10:31)
[2018-05-25] MEDS ORDERED: SACUBITRIL/VALSARTAN 49-51 MG TABLET PO SCH (10:45)
[2018-05-25] MEDS ORDERED: FUROSEMIDE 40 MG/4 ML VIAL IV ONE (10:50)
[2018-05-25] MEDS ORDERED: ENOXAPARIN 100 MG/ML SYRINGE SUBCUT ONE (10:55)
[2018-05-25] MEDS ORDERED: MAGNESIUM OXIDE 400 MG TABLET PO SCH (11:00)
[2018-05-25] MEDS ORDERED: ASPIRIN EC 325 MG TABLET PO SCH (11:00)
[2018-05-25] MEDS ORDERED: FUROSEMIDE 40 MG TABLET PO SCH (11:00)
[2018-05-25] MEDS ORDERED: ISOSORBIDE MONONITRATE 20 MG TABLET PO SCH (11:00)
[2018-05-25] MEDS ORDERED: CLOPIDOGREL 75 MG TABLET PO SCH (11:00)
[2018-05-25] MEDS ORDERED: CILOSTAZOL 50 MG TABLET PO SCH (11:00)
[2018-05-25] MEDS ORDERED: SPIRONOLACTONE 25 MG TABLET PO SCH (11:00)
[2018-05-25] MEDS ORDERED: CARVEDILOL 25 MG TABLET PO SCH ×2 (11:00→14:26)
[2018-05-25 12:23] VITALS: BP 124/70
[2018-05-25] MEDS ORDERED: WARFARIN 7.5 MG TABLET PO SCH (18:00)
[2018-05-25] MEDS ORDERED: AMITRIPTYLINE 100 MG TABLET PO SCH (21:00)
[2018-05-25] MEDS ORDERED: SIMVASTATIN 20 MG TABLET PO SCH (21:00)
[2018-05-26] MEDS ORDERED: LEVOTHYROXINE 125 MCG TABLET PO SCH (07:00)
== END 2018-05-25 15:50 | disposition home or self-care (01) ==
LOC: N.ED 18:22 → N.EDINP 18:22 → N.TELEN 20:47
PROVIDERS: ADMIT Internal Medicine Cardiovascular Disease; ATTEND Internal Medicine Cardiovascular Disease

== ENCOUNTER 2019-02-21 13:59 | Inpatient (IN) ==
[2019-02-21] MEDS ORDERED: NITROGLYCERIN SL 0.4 MG TABLET SL PRN (15:15)
[2019-02-21 15:30] LABS: Basophils % 0.2 % (0.0-0.8); Eosinophils % 0.2 % (0.00-10.9); Hematocrit 28.8 VOL% (42.0-52.0); Immature Granulocytes % 0.8 %; Lymphocytes % 7.5 % (21.2-54.2); Mean Corpuscular HGB Conc 31.3 GM/DL (32-36); Mean Corpuscular Volume 88.9 FL (87-102); Mean Platelet Volume 10.5 FL (9.6-12.0); Monocytes % 6.5 % (1.7-12.7); Neutrophils % 84.8 % (38.7-73.9); Platelet Count 251 T/CUMM (130-400); Red Blood Count 3.24 MC/CUMM (3.8-5.5); Red Cell Distribution Width 14.8 % (9.3-17.3); White Blood Count 13.3 T/CUMM (4-12)
[2019-02-21 15:43] LABS: INR 3.7
[2019-02-21 15:44] LABS: PT Patient Result 40.2 SECS (9.6-12.2); Partial Thromboplastin Time 81.6 SECS (20.8-36.0)
[2019-02-21 15:52] LABS: Albumin 2.2 G/DL (3.4-5.0); Bilirubin,Total 0.4 MG/DL (0.2-1.0); Calcium 8.1 MG/DL (8.5-10.1); Osmolality,Calculated 293.4 MOS/KG (273-304); Total Protein 6.9 G/DL (6.4-8.3)
[2019-02-21] MEDS ORDERED: GLUCAGON 1 MG VIAL IM PRN (16:22)
[2019-02-21] MEDS ORDERED: ACETAMINOPHEN 325 MG TABLET PO PRN (16:22)
[2019-02-21] MEDS ORDERED: BISACODYL 5 MG TABLET PO PRN (16:22)
[2019-02-21] MEDS ORDERED: ONDANSETRON 4 MG/2 ML VIAL IV PRN (16:22)
[2019-02-21] MEDS ORDERED: DEXTROSE 10% 250 ML BAG IV PRN (16:22)
[2019-02-21] MEDS ORDERED: VANCOMYCIN INJ 1,750 MG in SODIUM CHLORIDE 0.9% 500 ML IV PRN (16:24)
[2019-02-21] MEDS: INSULIN ASPART PROTAMINE/ASPART 70/30 100 UNIT/ML SUBCUT SCH (16:52)
[2019-02-21] MEDS ORDERED: VANCOMYCIN INJ 1,750 MG in SODIUM CHLORIDE 0.9% 500 ML IV ONE (17:00)
[2019-02-21] MEDS: INSULIN REGULAR 100 UNIT/ML SUBCUT SCH ×2 (17:21→21:33)
[2019-02-21] MEDS: SODIUM CHLORIDE 0.9% 1,000 ML IV SCH (17:31)
[2019-02-21] MEDS ORDERED: WARFARIN 7.5 MG TABLET PO SCH (18:00)
[2019-02-21] MEDS: SACUBITRIL/VALSARTAN 49-51 MG TABLET PO SCH (21:30)
[2019-02-21] MEDS: AMITRIPTYLINE 100 MG TABLET PO SCH (21:31)
[2019-02-21] MEDS: BISOPROLOL 5 MG TABLET PO SCH (21:31)
[2019-02-21] MEDS: ISOSORBIDE MONONITRATE 20 MG TABLET PO SCH (21:31)
[2019-02-21] MEDS: SIMVASTATIN 20 MG TABLET PO SCH (21:32)
[2019-02-21] MEDS: carvediloL 25 MG TABLET PO SCH (21:32)
[2019-02-21] MEDS: PRAMIPEXOLE 0.25 MG TABLET PO SCH (21:32)
[2019-02-21] MEDS: FERROUS SULFATE 325 MG TABLET PO SCH (21:32)
[2019-02-21] MEDS: MAGNESIUM OXIDE 400 MG TABLET PO SCH (21:32)
[2019-02-21] MEDS: CILOSTAZOL 50 MG TABLET PO SCH (21:32)
[2019-02-22 05:40] LABS: INR 3.8
[2019-02-22 05:43] LABS: Basophils % 0.1 % (0.0-0.8); Eosinophils % 0.1 % (0.00-10.9); Hematocrit 26.6 VOL% (42.0-52.0); Hemoglobin 8.5 GM/DL (14.0-18.0); Immature Granulocytes % 1.2 %; Immature Granulocytes Absolute 0.17 #; Lymphocytes # 1.4 10*3/uL (1.4-4.0); Mean Corpuscular Volume 86.4 FL (87-102); Mean Platelet Volume 10.7 FL (9.6-12.0); Monocytes % 9.1 % (1.7-12.7); NRBC # 0.02 10*3/uL; Neutrophils % 79.5 % (38.7-73.9); Platelet Count 259 T/CUMM (130-400); Red Blood Count 3.08 MC/CUMM (3.8-5.5); White Blood Count 13.9 T/CUMM (4-12)
[2019-02-22 05:50] LABS: PT Patient Result 40.4 SECS (9.6-12.2); Partial Thromboplastin Time 90.3 SECS (20.8-36.0)
[2019-02-22 05:51] LABS: Albumin 2.3 G/DL (3.4-5.0); Bilirubin,Total 0.5 MG/DL (0.2-1.0); Osmolality,Calculated 294.7 MOS/KG (273-304); Total Protein 6.8 G/DL (6.4-8.3)
[2019-02-22] MEDS: LEVOTHYROXINE 125 MCG TABLET PO SCH (06:23)
[2019-02-22] MEDS: INSULIN REGULAR 100 UNIT/ML SUBCUT SCH ×4 (08:28→20:47)
[2019-02-22] MEDS: INSULIN ASPART PROTAMINE/ASPART 70/30 100 UNIT/ML SUBCUT SCH ×2 (08:28→16:19)
[2019-02-22] MEDS: HYDROmorphone 2 MG/1 ML VIAL IV PRN (08:55)
[2019-02-22] MEDS ORDERED: SPIRONOLACTONE 25 MG TABLET PO SCH (09:00)
[2019-02-22] MEDS ORDERED: BUPIVACAINE 0.5% 50 ML VIAL ONE (12:42)
[2019-02-22] MEDS: carvediloL 25 MG TABLET PO SCH ×2 (13:28→21:50)
[2019-02-22] MEDS: SACUBITRIL/VALSARTAN 49-51 MG TABLET PO SCH ×2 (13:28→21:49)
[2019-02-22] MEDS: ISOSORBIDE MONONITRATE 20 MG TABLET PO SCH ×2 (13:29→21:49)
[2019-02-22] MEDS: MAGNESIUM OXIDE 400 MG TABLET PO SCH ×2 (13:29→21:51)
[2019-02-22] MEDS: FERROUS SULFATE 325 MG TABLET PO SCH ×2 (13:29→21:51)
[2019-02-22] MEDS: CILOSTAZOL 50 MG TABLET PO SCH ×2 (13:30→21:49)
[2019-02-22] MEDS: BISOPROLOL 5 MG TABLET PO SCH ×2 (13:30→21:50)
[2019-02-22] MEDS ORDERED: SUCCINYLCHOLINE 200 MG/10 ML VIAL ONE (14:30)
[2019-02-22] MEDS ORDERED: ROCURONIUM 100 MG/10 ML VIAL IV ONE (14:30)
[2019-02-22] MEDS ORDERED: PHENYLEPHRINE 10 MG/1 ML VIAL IV ONE (14:30)
[2019-02-22] MEDS ORDERED: ETOMIDATE 40 MG/20 ML VIAL IV ONE (14:30)
[2019-02-22] MEDS ORDERED: fentaNYL 100 MCG/2 ML VIAL ONE (14:30)
[2019-02-22] MEDS ORDERED: SEVOFLURANE 1 UNIT/15 MINUTE INH ONE (14:30)
[2019-02-22] MEDS ORDERED: SODIUM CHLORIDE 0.9% 100 ML IV ONE (14:31)
[2019-02-22] MEDS: CLOPIDOGREL 75 MG TABLET PO SCH (15:23)
[2019-02-22] MEDS: PANTOPRAZOLE 40 MG TABLET PO SCH (15:23)
[2019-02-22] MEDS: Saccharomyces Boulardii [Probiotic (S.Boulardii)] 250 MG PO SCH (15:24)
[2019-02-22] MEDS: FUROSEMIDE 40 MG TABLET PO SCH (16:10)
[2019-02-22] MEDS: SODIUM CHLORIDE 0.9% 1,000 ML IV SCH (16:15)
[2019-02-22] MEDS: PRAMIPEXOLE 0.25 MG TABLET PO SCH (21:50)
[2019-02-22] MEDS: AMITRIPTYLINE 100 MG TABLET PO SCH (21:50)
[2019-02-22] MEDS: SIMVASTATIN 20 MG TABLET PO SCH (21:51)
[2019-02-23 05:24] LABS: Basophils % 0.2 % (0.0-0.8); Eosinophils # 0.1 10*3/uL (0.0-0.87); Eosinophils % 1.1 % (0.00-10.9); Hematocrit 24.8 VOL% (42.0-52.0); Immature Granulocytes % 1.1 %; Immature Granulocytes Absolute 0.11 #; Lymphocytes # 1.7 10*3/uL (1.4-4.0); Lymphocytes % 16.4 % (21.2-54.2); Mean Corpuscular HGB Conc 32.3 GM/DL (32-36); Mean Corpuscular Volume 86.7 FL (87-102); Mean Platelet Volume 10.9 FL (9.6-12.0); Monocytes % 10.3 % (1.7-12.7); Neutrophils % 70.9 % (38.7-73.9); Platelet Count 265 T/CUMM (130-400); Red Blood Count 2.86 MC/CUMM (3.8-5.5); Red Cell Distribution Width 15.4 % (9.3-17.3); White Blood Count 10.3 T/CUMM (4-12)
[2019-02-23 05:46] LABS: INR 2.4
[2019-02-23 05:49] LABS: Calcium 7.8 MG/DL (8.5-10.1); Osmolality,Calculated 296.5 MOS/KG (273-304)
[2019-02-23 05:53] LABS: PT Patient Result 25.6 SECS (9.6-12.2)
[2019-02-23] MEDS: LEVOTHYROXINE 125 MCG TABLET PO SCH (05:59)
[2019-02-23] MEDS: INSULIN REGULAR 100 UNIT/ML SUBCUT SCH ×4 (08:18→21:37)
[2019-02-23] MEDS: SACUBITRIL/VALSARTAN 49-51 MG TABLET PO SCH (08:19)
[2019-02-23] MEDS: INSULIN ASPART PROTAMINE/ASPART 70/30 100 UNIT/ML SUBCUT SCH ×2 (08:23→17:06)
[2019-02-23] MEDS: CILOSTAZOL 50 MG TABLET PO SCH ×2 (08:24→21:47)
[2019-02-23] MEDS: BISOPROLOL 5 MG TABLET PO SCH ×2 (08:24→21:47)
[2019-02-23] MEDS: CLOPIDOGREL 75 MG TABLET PO SCH (08:24)
[2019-02-23] MEDS: carvediloL 25 MG TABLET PO SCH ×2 (08:24→21:47)
[2019-02-23] MEDS: MAGNESIUM OXIDE 400 MG TABLET PO SCH ×2 (08:24→21:47)
[2019-02-23] MEDS: ISOSORBIDE MONONITRATE 20 MG TABLET PO SCH ×2 (08:24→21:46)
[2019-02-23] MEDS: PANTOPRAZOLE 40 MG TABLET PO SCH (08:25)
[2019-02-23] MEDS: FERROUS SULFATE 325 MG TABLET PO SCH ×2 (08:25→21:47)
[2019-02-23] MEDS: Saccharomyces Boulardii [Probiotic (S.Boulardii)] 250 MG PO SCH (09:40)
[2019-02-23] MEDS: VANCOMYCIN INJ 1,750 MG in SODIUM CHLORIDE 0.9% 500 ML IV SCH (12:51)
[2019-02-23] MEDS: HYDROmorphone 2 MG/1 ML VIAL IV PRN (15:42)
[2019-02-23] MEDS: FUROSEMIDE 40 MG TABLET PO SCH (15:42)
[2019-02-23] MEDS: SODIUM CHLORIDE 0.9% 1,000 ML IV SCH (18:46)
[2019-02-23] MEDS: AMITRIPTYLINE 100 MG TABLET PO SCH (21:47)
[2019-02-23] MEDS: SIMVASTATIN 20 MG TABLET PO SCH (21:47)
[2019-02-23] MEDS: PRAMIPEXOLE 0.25 MG TABLET PO SCH (21:47)
[2019-02-24 05:04] LABS: Basophils % 0.2 % (0.0-0.8); Eosinophils # 0.2 10*3/uL (0.0-0.87); Hematocrit 25.9 VOL% (42.0-52.0); Hemoglobin 8.1 GM/DL (14.0-18.0); Immature Granulocytes % 1.6 %; Immature Granulocytes Absolute 0.13 #; Lymphocytes # 1.5 10*3/uL (1.4-4.0); Lymphocytes % 18.2 % (21.2-54.2); Mean Corpuscular HGB Conc 31.3 GM/DL (32-36); Mean Corpuscular Volume 87.2 FL (87-102); Mean Platelet Volume 10.4 FL (9.6-12.0); Monocytes % 12.8 % (1.7-12.7); Neutrophils % 65.2 % (38.7-73.9); Platelet Count 285 T/CUMM (130-400); Red Blood Count 2.97 MC/CUMM (3.8-5.5); Red Cell Distribution Width 15.5 % (9.3-17.3); White Blood Count 8.1 T/CUMM (4-12)
[2019-02-24 05:10] LABS: INR 1.6
[2019-02-24 05:25] LABS: Calcium 7.9 MG/DL (8.5-10.1); Osmolality,Calculated 296.3 MOS/KG (273-304)
[2019-02-24] MEDS: LEVOTHYROXINE 125 MCG TABLET PO SCH (07:04)
[2019-02-24] MEDS: CILOSTAZOL 50 MG TABLET PO SCH ×2 (08:40→21:36)
[2019-02-24] MEDS: ISOSORBIDE MONONITRATE 20 MG TABLET PO SCH ×2 (08:40→21:35)
[2019-02-24] MEDS: INSULIN ASPART PROTAMINE/ASPART 70/30 100 UNIT/ML SUBCUT SCH ×2 (08:41→16:58)
[2019-02-24] MEDS: FERROUS SULFATE 325 MG TABLET PO SCH ×2 (08:41→21:35)
[2019-02-24] MEDS: MAGNESIUM OXIDE 400 MG TABLET PO SCH ×2 (08:41→21:36)
[2019-02-24] MEDS: BISOPROLOL 5 MG TABLET PO SCH ×2 (08:41→21:35)
[2019-02-24] MEDS: CLOPIDOGREL 75 MG TABLET PO SCH (08:41)
[2019-02-24] MEDS: carvediloL 25 MG TABLET PO SCH ×2 (08:41→21:36)
[2019-02-24] MEDS: PANTOPRAZOLE 40 MG TABLET PO SCH (08:41)
[2019-02-24] MEDS: INSULIN REGULAR 100 UNIT/ML SUBCUT SCH ×4 (08:42→21:37)
[2019-02-24] MEDS: Saccharomyces Boulardii [Probiotic (S.Boulardii)] 250 MG PO SCH (08:42)
[2019-02-24] MEDS: VANCOMYCIN INJ 1,750 MG in SODIUM CHLORIDE 0.9% 500 ML IV SCH (12:20)
[2019-02-24] MEDS: FUROSEMIDE 40 MG TABLET PO SCH (14:50)
[2019-02-24] MEDS: WARFARIN 5 MG TABLET PO SCH (18:06)
[2019-02-24] MEDS: SODIUM CHLORIDE 0.9% 1,000 ML IV SCH ×2 (18:07→19:16)
[2019-02-24] MEDS: AMITRIPTYLINE 100 MG TABLET PO SCH (21:36)
[2019-02-24] MEDS: SIMVASTATIN 20 MG TABLET PO SCH (21:36)
[2019-02-24] MEDS: PRAMIPEXOLE 0.25 MG TABLET PO SCH (21:37)
[2019-02-25 04:37] LABS: Basophils % 0.5 % (0.0-0.8); Eosinophils # 0.2 10*3/uL (0.0-0.87); Eosinophils % 2.8 % (0.00-10.9); Hematocrit 27.4 VOL% (42.0-52.0); Hemoglobin 8.6 GM/DL (14.0-18.0); Immature Granulocytes % 3.3 %; Immature Granulocytes Absolute 0.25 #; Lymphocytes # 1.5 10*3/uL (1.4-4.0); Lymphocytes % 19.3 % (21.2-54.2); Mean Corpuscular HGB Conc 31.4 GM/DL (32-36); Mean Corpuscular Volume 87.8 FL (87-102); Mean Platelet Volume 10.1 FL (9.6-12.0); Monocytes % 14.2 % (1.7-12.7); NRBC # 0.02 10*3/uL; Neutrophils % 59.9 % (38.7-73.9); Platelet Count 325 T/CUMM (130-400); Red Blood Count 3.12 MC/CUMM (3.8-5.5); Red Cell Distribution Width 15.4 % (9.3-17.3); White Blood Count 7.6 T/CUMM (4-12)
[2019-02-25 04:41] LABS: INR 1.3
[2019-02-25 05:03] LABS: Calcium 8.1 MG/DL (8.5-10.1); Osmolality,Calculated 294.8 MOS/KG (273-304)
[2019-02-25] MEDS: LEVOTHYROXINE 125 MCG TABLET PO SCH (06:17)
[2019-02-25] MEDS: INSULIN REGULAR 100 UNIT/ML SUBCUT SCH ×4 (10:13→20:51)
[2019-02-25] MEDS: carvediloL 25 MG TABLET PO SCH ×2 (10:14→20:52)
[2019-02-25] MEDS: INSULIN ASPART PROTAMINE/ASPART 70/30 100 UNIT/ML SUBCUT SCH ×2 (10:14→17:14)
[2019-02-25] MEDS: SODIUM CHLORIDE 0.9% 1,000 ML IV SCH (10:14)
[2019-02-25] MEDS: ISOSORBIDE MONONITRATE 20 MG TABLET PO SCH ×2 (10:14→20:52)
[2019-02-25] MEDS: MAGNESIUM OXIDE 400 MG TABLET PO SCH ×2 (10:14→20:51)
[2019-02-25] MEDS: FERROUS SULFATE 325 MG TABLET PO SCH ×2 (10:14→20:51)
[2019-02-25] MEDS: CILOSTAZOL 50 MG TABLET PO SCH ×2 (10:15→20:52)
[2019-02-25] MEDS: PANTOPRAZOLE 40 MG TABLET PO SCH (10:15)
[2019-02-25] MEDS: Saccharomyces Boulardii [Probiotic (S.Boulardii)] 250 MG PO SCH (10:15)
[2019-02-25] MEDS: BISOPROLOL 5 MG TABLET PO SCH ×2 (10:15→20:52)
[2019-02-25] MEDS: CLOPIDOGREL 75 MG TABLET PO SCH (10:15)
[2019-02-25] MEDS: FUROSEMIDE 40 MG TABLET PO SCH (10:24)
[2019-02-25] MEDS: VANCOMYCIN INJ 1,750 MG in SODIUM CHLORIDE 0.9% 500 ML IV SCH (12:58)
[2019-02-25] MEDS: WARFARIN 5 MG TABLET PO SCH (17:14)
[2019-02-25] MEDS: PRAMIPEXOLE 0.25 MG TABLET PO SCH (20:51)
[2019-02-25] MEDS: SIMVASTATIN 20 MG TABLET PO SCH (20:51)
[2019-02-25] MEDS: AMITRIPTYLINE 100 MG TABLET PO SCH (20:52)
[2019-02-26 05:27] LABS: INR 1.2; PT Patient Result 12.9 SECS (9.6-12.2)
[2019-02-26] MEDS: LEVOTHYROXINE 125 MCG TABLET PO SCH (06:15)
[2019-02-26] MEDS: SODIUM CHLORIDE 0.9% 1,000 ML IV SCH ×2 (06:15→18:37)
[2019-02-26] MEDS: INSULIN ASPART PROTAMINE/ASPART 70/30 100 UNIT/ML SUBCUT SCH ×2 (08:20→18:40)
[2019-02-26] MEDS: INSULIN REGULAR 100 UNIT/ML SUBCUT SCH ×4 (08:20→21:48)
[2019-02-26] MEDS: CILOSTAZOL 50 MG TABLET PO SCH ×2 (09:47→21:47)
[2019-02-26] MEDS: FUROSEMIDE 40 MG TABLET PO SCH (09:47)
[2019-02-26] MEDS: BISOPROLOL 5 MG TABLET PO SCH ×2 (09:47→21:47)
[2019-02-26] MEDS: FERROUS SULFATE 325 MG TABLET PO SCH ×2 (09:47→21:49)
[2019-02-26] MEDS: carvediloL 25 MG TABLET PO SCH ×2 (09:47→21:47)
[2019-02-26] MEDS: PANTOPRAZOLE 40 MG TABLET PO SCH (09:47)
[2019-02-26] MEDS: MAGNESIUM OXIDE 400 MG TABLET PO SCH ×2 (09:47→21:48)
[2019-02-26] MEDS: ISOSORBIDE MONONITRATE 20 MG TABLET PO SCH ×2 (09:47→21:47)
[2019-02-26] MEDS: CLOPIDOGREL 75 MG TABLET PO SCH (09:47)
[2019-02-26] MEDS: Saccharomyces Boulardii [Probiotic (S.Boulardii)] 250 MG PO SCH (09:50)
[2019-02-26] MEDS: VANCOMYCIN INJ 1,750 MG in SODIUM CHLORIDE 0.9% 500 ML IV SCH ×2 (12:32→18:38)
[2019-02-26] MEDS: WARFARIN 5 MG TABLET PO SCH (18:37)
[2019-02-26] MEDS: PRAMIPEXOLE 0.25 MG TABLET PO SCH (21:47)
[2019-02-26] MEDS: SIMVASTATIN 20 MG TABLET PO SCH (21:47)
[2019-02-26] MEDS: DOXYCYCLINE HYCLATE 100 MG CAPSULE PO SCH (21:47)
[2019-02-26] MEDS: AMITRIPTYLINE 100 MG TABLET PO SCH (21:47)
[2019-02-27 06:29] LABS: Basophils % 0.4 % (0.0-0.8); Eosinophils # 0.3 10*3/uL (0.0-0.87); Eosinophils % 2.4 % (0.00-10.9); Hematocrit 29.8 VOL% (42.0-52.0); Hemoglobin 9.4 GM/DL (14.0-18.0); Immature Granulocytes % 2.4 %; Immature Granulocytes Absolute 0.27 #; Lymphocytes # 1.8 10*3/uL (1.4-4.0); Lymphocytes % 15.3 % (21.2-54.2); Mean Corpuscular HGB Conc 31.5 GM/DL (32-36); Mean Corpuscular Volume 87.1 FL (87-102); Mean Platelet Volume 9.6 FL (9.6-12.0); Monocytes % 9.9 % (1.7-12.7); Neutrophils % 69.6 % (38.7-73.9); Platelet Count 365 T/CUMM (130-400); Red Blood Count 3.42 MC/CUMM (3.8-5.5); Red Cell Distribution Width 15.1 % (9.3-17.3); White Blood Count 11.4 T/CUMM (4-12)
[2019-02-27] MEDS: LEVOTHYROXINE 125 MCG TABLET PO SCH (06:29)
[2019-02-27 06:34] LABS: INR 1.2; PT Patient Result 13.3 SECS (9.6-12.2)
[2019-02-27 06:52] LABS: Calcium 8.5 MG/DL (8.5-10.1); Osmolality,Calculated 290.6 MOS/KG (273-304)
[2019-02-27 07:38] VITALS: BP 149/69
[2019-02-27] MEDS: INSULIN REGULAR 100 UNIT/ML SUBCUT SCH ×2 (08:29→11:53)
[2019-02-27] MEDS: INSULIN ASPART PROTAMINE/ASPART 70/30 100 UNIT/ML SUBCUT SCH (08:29)
[2019-02-27] MEDS: ISOSORBIDE MONONITRATE 20 MG TABLET PO SCH (09:15)
[2019-02-27] MEDS: MAGNESIUM OXIDE 400 MG TABLET PO SCH (09:15)
[2019-02-27] MEDS: CILOSTAZOL 50 MG TABLET PO SCH (09:15)
[2019-02-27] MEDS: CLOPIDOGREL 75 MG TABLET PO SCH (09:15)
[2019-02-27] MEDS: DOXYCYCLINE HYCLATE 100 MG CAPSULE PO SCH (09:16)
[2019-02-27] MEDS: PANTOPRAZOLE 40 MG TABLET PO SCH (09:16)
[2019-02-27] MEDS: FUROSEMIDE 40 MG TABLET PO SCH (09:16)
[2019-02-27] MEDS: FERROUS SULFATE 325 MG TABLET PO SCH (09:16)
[2019-02-27] MEDS: BISOPROLOL 5 MG TABLET PO SCH (09:16)
[2019-02-27] MEDS: Saccharomyces Boulardii [Probiotic (S.Boulardii)] 250 MG PO SCH (09:17)
[2019-02-27] MEDS: carvediloL 25 MG TABLET PO SCH (09:17)
== END 2019-02-27 11:45 | disposition home health service (06) | DRG 264 ==
LOC: N.3E 14:23
PROVIDERS: ADMIT Surgery; ATTEND Surgery

== ENCOUNTER 2019-04-18 11:31 | Inpatient (IN) ==
[2019-04-18] MEDS ORDERED: DEXTROSE 10% 250 ML BAG IV PRN (11:37)
[2019-04-18] MEDS ORDERED: ONDANSETRON 4 MG/2 ML VIAL IV PRN (11:37)
[2019-04-18] MEDS ORDERED: GLUCAGON 1 MG VIAL IM PRN (11:37)
[2019-04-18] MEDS ORDERED: ACETAMINOPHEN 325 MG TABLET PO PRN (11:37)
[2019-04-18] MEDS ORDERED: FUROSEMIDE 40 MG/4 ML VIAL IM ONE (11:43)
[2019-04-18] MEDS ORDERED: ALBUTEROL/IPRATROPIUM 3 ML NEB RESP TX PRN (11:44)
[2019-04-18] MEDS ORDERED: NITROGLYCERIN SL 0.4 MG TABLET SL PRN (15:48)
[2019-04-18] MEDS: INSULIN LISPRO 100 UNIT/ML SUBCUT SCH ×2 (16:48→21:36)
[2019-04-18] MEDS: FUROSEMIDE 40 MG/4 ML VIAL IV SCH (17:20)
[2019-04-18] MEDS: cefTRIAXone 1,000 MG in SYRINGE 1 EACH IV SCH (17:26)
[2019-04-18] MEDS: AZITHROMYCIN INJ 500 MG in SODIUM CHLORIDE 0.9% 250 ML IV SCH (17:31)
[2019-04-18] MEDS: WARFARIN 7.5 MG TABLET PO SCH (18:39)
[2019-04-18] MEDS: ALBUTEROL/IPRATROPIUM 3 ML NEB RESP TX SCH (19:25)
[2019-04-18] MEDS: SIMVASTATIN 20 MG TABLET PO SCH (21:30)
[2019-04-18] MEDS: DOCUSATE SODIUM 100 MG CAPSULE PO SCH (21:30)
[2019-04-18] MEDS: SACUBITRIL/VALSARTAN 49-51 MG TABLET PO SCH (21:31)
[2019-04-18] MEDS: CALCIUM (CARBONATE)/VITAMIN D 600 MG-400 UNIT TABLET PO SCH (21:31)
[2019-04-18] MEDS: BISOPROLOL 5 MG TABLET PO SCH (21:32)
[2019-04-18] MEDS: ISOSORBIDE MONONITRATE 20 MG TABLET PO SCH (21:32)
[2019-04-18] MEDS: carvediloL 25 MG TABLET PO SCH (21:33)
[2019-04-18] MEDS: cilostazoL 50 MG TABLET PO SCH (21:33)
[2019-04-19] MEDS: ALBUTEROL/IPRATROPIUM 3 ML NEB RESP TX SCH ×5 (00:41→22:08)
[2019-04-19 05:39] LABS: Apearance,Urine CLEAR (Clear); Bacteria,Urine Occasional /HPF (Few); Bilirubin,Urine Negative (Negative); Blood, Urine Large mg/dL (Negative); Glucose,Urine (UA) Negative (Negative); Hyaline Casts,Urine 4 /LPF (0-3); Ketones,Urine Negative (Negative); Mucus,Urine Occasional /LPF (Occasional); Nitrite,Urine Negative (Negative); Protein,Urine 100 MG/DL; RBC,Urine 29 /HPF (0-4); Squamous Epithelial Cell,Urine Occasional /HPF (0-10); Urine Color Yellow (Yellow); Urine Specific Gravity 1.013 (1.001-1.035); Urine Urobilinogen < 2.0 EU/DL (0.2-1.0); WBC,Urine <1 /HPF (0-6)
[2019-04-19 05:48] LABS: Basophils # 0.1 10*3/uL (0.0-0.2); Basophils % 0.5 % (0.0-0.8); Eosinophils # 0.2 10*3/uL (0.0-0.87); Eosinophils % 2.1 % (0.00-10.9); Hematocrit 32.9 VOL% (42.0-52.0); Hemoglobin 10.2 GM/DL (14.0-18.0); Immature Granulocytes % 0.3 %; Immature Granulocytes Absolute 0.03 #; Lymphocytes # 2.9 10*3/uL (1.4-4.0); Lymphocytes % 32.2 % (21.2-54.2); Mean Corpuscular Volume 87.7 FL (87-102); Mean Platelet Volume 11.1 FL (9.6-12.0); Monocytes % 10.6 % (1.7-12.7); Neutrophils % 54.3 % (38.7-73.9); Platelet Count 250 T/CUMM (130-400); Red Blood Count 3.75 MC/CUMM (3.8-5.5); Red Cell Distribution Width 16.4 % (9.3-17.3); White Blood Count 9.1 T/CUMM (4-12)
[2019-04-19 05:51] LABS: INR 1.8; PT Patient Result 19.9 SECS (9.6-12.2)
[2019-04-19 06:18] LABS: Albumin 2.6 G/DL (3.4-5.0); Bilirubin,Total 0.8 MG/DL (0.2-1.0); Calcium 8.6 MG/DL (8.5-10.1); Osmolality,Calculated 289.1 MOS/KG (273-304); Total Protein 6.6 G/DL (6.4-8.3)
[2019-04-19] MEDS: INSULIN LISPRO 100 UNIT/ML SUBCUT SCH ×4 (07:59→21:29)
[2019-04-19] MEDS ORDERED: ZALEPLON 5 MG CAPSULE PO PRN (08:29)
[2019-04-19] MEDS ORDERED: PANTOPRAZOLE 40 MG TABLET PO SCH (09:00)
[2019-04-19] MEDS: FUROSEMIDE 40 MG/4 ML VIAL IV SCH ×2 (09:08→16:02)
[2019-04-19] MEDS: BISOPROLOL 5 MG TABLET PO SCH ×2 (09:10→21:31)
[2019-04-19] MEDS: DOCUSATE SODIUM 100 MG CAPSULE PO SCH ×2 (09:14→21:30)
[2019-04-19] MEDS: CALCIUM (CARBONATE)/VITAMIN D 600 MG-400 UNIT TABLET PO SCH ×2 (09:15→21:30)
[2019-04-19] MEDS: ISOSORBIDE MONONITRATE 20 MG TABLET PO SCH ×2 (09:15→21:31)
[2019-04-19] MEDS: SACUBITRIL/VALSARTAN 49-51 MG TABLET PO SCH ×2 (09:16→21:31)
[2019-04-19] MEDS: cilostazoL 50 MG TABLET PO SCH ×2 (09:16→21:30)
[2019-04-19] MEDS: SPIRONOLACTONE 25 MG TABLET PO SCH (09:16)
[2019-04-19] MEDS: carvediloL 25 MG TABLET PO SCH ×2 (09:16→17:25)
[2019-04-19] MEDS: PANTOPRAZOLE 40 MG TABLET PO SCH (09:17)
[2019-04-19] MEDS: CLOPIDOGREL 75 MG TABLET PO SCH (09:17)
[2019-04-19] MEDS: MAGNESIUM OXIDE 400 MG TABLET PO SCH ×2 (09:23→21:30)
[2019-04-19] MEDS: POTASSIUM CHLORIDE 8 MEQ CAPSULE PO SCH (09:23)
[2019-04-19] MEDS: FERROUS SULFATE 325 MG TABLET PO SCH ×2 (09:24→21:30)
[2019-04-19] MEDS: INSULIN ASPART PROTAMINE/ASPART 70/30 100 UNIT/ML SUBCUT SCH ×2 (11:22→17:25)
[2019-04-19] MEDS: cefTRIAXone 1,000 MG in SYRINGE 1 EACH IV SCH (15:58)
[2019-04-19] MEDS: AZITHROMYCIN INJ 500 MG in SODIUM CHLORIDE 0.9% 250 ML IV SCH (16:10)
[2019-04-19] MEDS: WARFARIN 7.5 MG TABLET PO SCH (17:25)
[2019-04-19] MEDS: AMITRIPTYLINE 100 MG TABLET PO SCH (21:30)
[2019-04-19] MEDS: SIMVASTATIN 20 MG TABLET PO SCH (21:32)
[2019-04-20] MEDS: ALBUTEROL/IPRATROPIUM 3 ML NEB RESP TX SCH ×4 (01:00→19:40)
[2019-04-20 04:51] LABS: Basophils # 0.1 10*3/uL (0.0-0.2); Basophils % 0.7 % (0.0-0.8); Eosinophils # 0.2 10*3/uL (0.0-0.87); Eosinophils % 2.6 % (0.00-10.9); Hematocrit 30.1 VOL% (42.0-52.0); Hemoglobin 9.3 GM/DL (14.0-18.0); Immature Granulocytes % 0.3 %; Immature Granulocytes Absolute 0.02 #; Lymphocytes # 2.9 10*3/uL (1.4-4.0); Mean Corpuscular HGB Conc 30.9 GM/DL (32-36); Mean Platelet Volume 11.4 FL (9.6-12.0); Monocytes % 12.5 % (1.7-12.7); Neutrophils % 43.9 % (38.7-73.9); Platelet Count 220 T/CUMM (130-400); Red Cell Distribution Width 16.3 % (9.3-17.3); White Blood Count 7.2 T/CUMM (4-12)
[2019-04-20 05:17] LABS: INR 1.7; PT Patient Result 18.9 SECS (9.6-12.2)
[2019-04-20 05:29] LABS: Calcium 7.9 MG/DL (8.5-10.1); Osmolality,Calculated 292.1 MOS/KG (273-304)
[2019-04-20] MEDS: LEVOTHYROXINE 150 MCG TABLET PO SCH (06:04)
[2019-04-20] MEDS: INSULIN ASPART PROTAMINE/ASPART 70/30 100 UNIT/ML SUBCUT SCH ×3 (09:18→18:00)
[2019-04-20] MEDS: FUROSEMIDE 40 MG/4 ML VIAL IV SCH (09:19)
[2019-04-20] MEDS: CALCIUM (CARBONATE)/VITAMIN D 600 MG-400 UNIT TABLET PO SCH ×2 (09:20→21:00)
[2019-04-20] MEDS: carvediloL 25 MG TABLET PO SCH ×2 (09:20→19:31)
[2019-04-20] MEDS: DOCUSATE SODIUM 100 MG CAPSULE PO SCH ×2 (09:20→21:00)
[2019-04-20] MEDS: MAGNESIUM OXIDE 400 MG TABLET PO SCH ×2 (09:20→21:04)
[2019-04-20] MEDS: ISOSORBIDE MONONITRATE 20 MG TABLET PO SCH ×2 (09:20→21:03)
[2019-04-20] MEDS: FERROUS SULFATE 325 MG TABLET PO SCH ×2 (09:20→21:03)
[2019-04-20] MEDS: CLOPIDOGREL 75 MG TABLET PO SCH (09:20)
[2019-04-20] MEDS: cilostazoL 50 MG TABLET PO SCH ×2 (09:20→21:04)
[2019-04-20] MEDS: POTASSIUM CHLORIDE 8 MEQ CAPSULE PO SCH (09:20)
[2019-04-20] MEDS: SPIRONOLACTONE 25 MG TABLET PO SCH (09:21)
[2019-04-20] MEDS: INSULIN LISPRO 100 UNIT/ML SUBCUT SCH ×4 (09:21→21:03)
[2019-04-20] MEDS: BISOPROLOL 5 MG TABLET PO SCH ×2 (09:21→21:04)
[2019-04-20] MEDS: SACUBITRIL/VALSARTAN 49-51 MG TABLET PO SCH ×2 (09:21→21:01)
[2019-04-20] MEDS: PANTOPRAZOLE 40 MG TABLET PO SCH (09:21)
[2019-04-20] MEDS: FUROSEMIDE 80 MG TABLET PO SCH (15:14)
[2019-04-20] MEDS: cefTRIAXone 1,000 MG in SYRINGE 1 EACH IV SCH (15:23)
[2019-04-20] MEDS: AZITHROMYCIN INJ 500 MG in SODIUM CHLORIDE 0.9% 250 ML IV SCH (15:24)
[2019-04-20] MEDS: WARFARIN 7.5 MG TABLET PO SCH (18:58)
[2019-04-20] MEDS: AMITRIPTYLINE 100 MG TABLET PO SCH (21:01)
[2019-04-20] MEDS: SIMVASTATIN 20 MG TABLET PO SCH (21:05)
[2019-04-21] MEDS: ALBUTEROL/IPRATROPIUM 3 ML NEB RESP TX SCH ×3 (00:30→14:57)
[2019-04-21] MEDS: LEVOTHYROXINE 150 MCG TABLET PO SCH (06:16)
[2019-04-21 07:11] LABS: Basophils # 0.1 10*3/uL (0.0-0.2); Basophils % 0.7 % (0.0-0.8); Eosinophils # 0.4 10*3/uL (0.0-0.87); Eosinophils % 4.9 % (0.00-10.9); Hematocrit 30.6 VOL% (42.0-52.0); Hemoglobin 9.4 GM/DL (14.0-18.0); Immature Granulocytes % 0.3 %; Immature Granulocytes Absolute 0.02 #; Lymphocytes # 2.7 10*3/uL (1.4-4.0); Lymphocytes % 35.2 % (21.2-54.2); Mean Corpuscular HGB Conc 30.7 GM/DL (32-36); Mean Corpuscular Volume 86.9 FL (87-102); Mean Platelet Volume 11.3 FL (9.6-12.0); Monocytes % 10.9 % (1.7-12.7); Platelet Count 210 T/CUMM (130-400); Red Blood Count 3.52 MC/CUMM (3.8-5.5); Red Cell Distribution Width 16.6 % (9.3-17.3); White Blood Count 7.6 T/CUMM (4-12)
[2019-04-21 07:27] LABS: Calcium 7.9 MG/DL (8.5-10.1); Osmolality,Calculated 296.3 MOS/KG (273-304)
[2019-04-21 07:34] LABS: INR 2.2
[2019-04-21 07:42] LABS: PT Patient Result 23.9 SECS (9.6-12.2)
[2019-04-21] MEDS: MAGNESIUM OXIDE 400 MG TABLET PO SCH (09:36)
[2019-04-21] MEDS: SPIRONOLACTONE 25 MG TABLET PO SCH (09:36)
[2019-04-21] MEDS: PANTOPRAZOLE 40 MG TABLET PO SCH (09:36)
[2019-04-21] MEDS: DOCUSATE SODIUM 100 MG CAPSULE PO SCH (09:37)
[2019-04-21] MEDS: ISOSORBIDE MONONITRATE 20 MG TABLET PO SCH (09:37)
[2019-04-21] MEDS: SACUBITRIL/VALSARTAN 49-51 MG TABLET PO SCH (09:37)
[2019-04-21] MEDS: BISOPROLOL 5 MG TABLET PO SCH (09:37)
[2019-04-21] MEDS: cilostazoL 50 MG TABLET PO SCH (09:37)
[2019-04-21] MEDS: carvediloL 25 MG TABLET PO SCH (09:37)
[2019-04-21] MEDS: INSULIN LISPRO 100 UNIT/ML SUBCUT SCH ×2 (09:38→12:30)
[2019-04-21] MEDS: INSULIN ASPART PROTAMINE/ASPART 70/30 100 UNIT/ML SUBCUT SCH ×2 (09:38→12:30)
[2019-04-21] MEDS: POTASSIUM CHLORIDE 8 MEQ CAPSULE PO SCH (09:38)
[2019-04-21] MEDS: FUROSEMIDE 80 MG TABLET PO SCH (09:38)
[2019-04-21] MEDS: CLOPIDOGREL 75 MG TABLET PO SCH (09:38)
[2019-04-21] MEDS: CALCIUM (CARBONATE)/VITAMIN D 600 MG-400 UNIT TABLET PO SCH (09:38)
[2019-04-21] MEDS: FERROUS SULFATE 325 MG TABLET PO SCH (09:38)
[2019-04-21 15:12] VITALS: BP 153/65
== END 2019-04-21 17:06 | disposition home health service (06) | DRG 291 ==
LOC: N.3E 14:31
PROVIDERS: ADMIT Internal Medicine; ATTEND Internal Medicine

== ENCOUNTER 2019-05-13 14:43 | Inpatient (IN) ==
[2019-05-13] MEDS ORDERED: ASPIRIN 325 MG TABLET PO STA (15:10)
[2019-05-13] MEDS ORDERED: FUROSEMIDE 40 MG/4 ML VIAL IV STA (15:11)
[2019-05-13 16:08] LABS: Basophils % 0.4 % (0.0-0.8); Eosinophils # 0.2 10*3/uL (0.0-0.87); Eosinophils % 2.7 % (0.00-10.9); Hematocrit 32.8 VOL% (42.0-52.0); Hemoglobin 9.8 GM/DL (14.0-18.0); Immature Granulocytes % 0.3 %; Immature Granulocytes Absolute 0.03 #; Lymphocytes # 2.5 10*3/uL (1.4-4.0); Lymphocytes % 28.2 % (21.2-54.2); Mean Corpuscular HGB Conc 29.9 GM/DL (32-36); Mean Corpuscular Volume 89.1 FL (87-102); Mean Platelet Volume 10.5 FL (9.6-12.0); Monocytes % 7.5 % (1.7-12.7); Neutrophils % 60.9 % (38.7-73.9); Platelet Count 207 T/CUMM (130-400); Red Blood Count 3.68 MC/CUMM (3.8-5.5); Red Cell Distribution Width 16.3 % (9.3-17.3)
[2019-05-13 16:16] LABS: INR 2.3
[2019-05-13 16:17] LABS: PT Patient Result 25.2 SECS (9.6-12.2)
[2019-05-13 16:31] LABS: Alanine Aminotransferase 23 U/L (16-61); Albumin 2.7 G/DL (3.4-5.0); Alkaline Phosphatase 80 U/L (45-117); Aspartate Amino Transferase 24 U/L (0-37); Blood Urea Nitrogen 60 MG/DL (7-18); Calcium 8.4 MG/DL (8.5-10.1); Estimated Glom Filtration Rate 36 ML/MIN; Glucose 115 MG/DL (74-106); Osmolality,Calculated 292.7 MOS/KG (273-304); Total Protein 6.6 G/DL (6.4-8.3); Troponin I 0.032 NG/ML (0.00-0.045)
[2019-05-13] MEDS ORDERED: ONDANSETRON 4 MG/2 ML VIAL IV PRN (16:44)
[2019-05-13] MEDS ORDERED: BISACODYL 5 MG TABLET PO PRN (16:44)
[2019-05-13] MEDS ORDERED: NALOXONE 0.4 MG/ML VIAL IV PRN (16:44)
[2019-05-13] MEDS ORDERED: PROMETHAZINE 25 MG/1 ML VIAL IM PRN (16:44)
[2019-05-13] MEDS ORDERED: ACETAMINOPHEN 325 MG TABLET PO PRN (16:44)
[2019-05-13] MEDS ORDERED: NITROGLYCERIN SL 0.4 MG TABLET SL PRN (19:19)
[2019-05-13] MEDS ORDERED: ENOXAPARIN 40 MG/0.4 ML SYRINGE SUBCUT SCH (21:00)
[2019-05-13] MEDS ORDERED: SACUBITRIL VALSARTAN PO SCH (21:00)
[2019-05-13] MEDS: BISOPROLOL 5 MG TABLET PO SCH (21:50)
[2019-05-13] MEDS: POTASSIUM CHLORIDE 8 MEQ CAPSULE PO SCH (21:50)
[2019-05-13] MEDS: AMITRIPTYLINE 100 MG TABLET PO SCH (21:51)
[2019-05-13] MEDS: ISOSORBIDE MONONITRATE 20 MG TABLET PO SCH (21:51)
[2019-05-13] MEDS: SIMVASTATIN 20 MG TABLET PO SCH (21:52)
[2019-05-13] MEDS: DOCUSATE SODIUM 100 MG CAPSULE PO SCH (21:52)
[2019-05-13] MEDS: carvediloL 25 MG TABLET PO SCH (21:52)
[2019-05-13] MEDS: MAGNESIUM OXIDE 400 MG TABLET PO SCH (21:52)
[2019-05-13] MEDS: FERROUS SULFATE 325 MG TABLET PO SCH (21:52)
[2019-05-13] MEDS: cilostazoL 50 MG TABLET PO SCH (21:53)
[2019-05-14] MEDS: ALBUTEROL/IPRATROPIUM 3 ML NEB RESP TX SCH ×5 (01:35→21:00)
[2019-05-14] MEDS: LEVOTHYROXINE 150 MCG TABLET PO SCH (06:48)
[2019-05-14 07:08] LABS: Basophils # 0.1 10*3/uL (0.0-0.2); Basophils % 0.6 % (0.0-0.8); Eosinophils # 0.3 10*3/uL (0.0-0.87); Eosinophils % 2.7 % (0.00-10.9); Hematocrit 31.6 VOL% (42.0-52.0); Hemoglobin 9.7 GM/DL (14.0-18.0); Immature Granulocytes % 0.3 %; Immature Granulocytes Absolute 0.03 #; Lymphocytes % 32.7 % (21.2-54.2); Mean Corpuscular HGB Conc 30.7 GM/DL (32-36); Mean Corpuscular Volume 87.5 FL (87-102); Mean Platelet Volume 11.3 FL (9.6-12.0); Monocytes % 10.5 % (1.7-12.7); Neutrophils % 53.2 % (38.7-73.9); Platelet Count 207 T/CUMM (130-400); Red Blood Count 3.61 MC/CUMM (3.8-5.5); Red Cell Distribution Width 16.3 % (9.3-17.3); White Blood Count 9.2 T/CUMM (4-12)
[2019-05-14 07:46] LABS: Albumin 2.6 G/DL (3.4-5.0); Bilirubin,Total 0.5 MG/DL (0.2-1.0); Calcium 8.5 MG/DL (8.5-10.1); Osmolality,Calculated 298.3 MOS/KG (273-304); Total Protein 6.5 G/DL (6.4-8.3)
[2019-05-14] MEDS: BISOPROLOL 5 MG TABLET PO SCH ×2 (09:05→20:46)
[2019-05-14] MEDS: MAGNESIUM OXIDE 400 MG TABLET PO SCH ×2 (09:05→20:47)
[2019-05-14] MEDS: POTASSIUM CHLORIDE 8 MEQ CAPSULE PO SCH ×2 (09:06→20:47)
[2019-05-14] MEDS: PANTOPRAZOLE 40 MG TABLET PO SCH (09:06)
[2019-05-14] MEDS: FERROUS SULFATE 325 MG TABLET PO SCH ×2 (09:06→20:47)
[2019-05-14] MEDS: carvediloL 25 MG TABLET PO SCH ×2 (09:06→20:47)
[2019-05-14] MEDS: SPIRONOLACTONE 25 MG TABLET PO SCH (09:06)
[2019-05-14] MEDS: ISOSORBIDE MONONITRATE 20 MG TABLET PO SCH ×2 (09:06→20:47)
[2019-05-14] MEDS: CLOPIDOGREL 75 MG TABLET PO SCH (09:06)
[2019-05-14] MEDS: DOCUSATE SODIUM 100 MG CAPSULE PO SCH ×2 (09:06→20:46)
[2019-05-14] MEDS: FUROSEMIDE 40 MG/4 ML VIAL IV SCH ×2 (09:06→15:33)
[2019-05-14] MEDS: INSULIN ASPART PROTAMINE/ASPART 70/30 100 UNIT/ML SUBCUT SCH ×3 (09:07→17:24)
[2019-05-14] MEDS: cilostazoL 50 MG TABLET PO SCH ×2 (09:10→20:47)
[2019-05-14 09:17] LABS: Troponin I 0.051 NG/ML (0.00-0.045)
[2019-05-14 11:43] LABS: Troponin I 0.048 NG/ML (0.00-0.045)
[2019-05-14] MEDS: metOLazone 5 MG TABLET PO SCH (15:32)
[2019-05-14] MEDS: WARFARIN 7.5 MG TABLET PO SCH (17:24)
[2019-05-14] MEDS: AMITRIPTYLINE 100 MG TABLET PO SCH (20:46)
[2019-05-14] MEDS: SIMVASTATIN 20 MG TABLET PO SCH (20:48)
[2019-05-15] MEDS: ALBUTEROL/IPRATROPIUM 3 ML NEB RESP TX SCH ×4 (01:36→19:44)
[2019-05-15 05:44] LABS: INR 1.4; PT Patient Result 14.7 SECS (9.6-12.2)
[2019-05-15 05:46] LABS: Basophils # 0.1 10*3/uL (0.0-0.2); Basophils % 0.7 % (0.0-0.8); Eosinophils # 0.3 10*3/uL (0.0-0.87); Eosinophils % 3.3 % (0.00-10.9); Hematocrit 30.9 VOL% (42.0-52.0); Hemoglobin 9.4 GM/DL (14.0-18.0); Immature Granulocytes % 0.3 %; Immature Granulocytes Absolute 0.02 #; Lymphocytes # 2.7 10*3/uL (1.4-4.0); Lymphocytes % 35.5 % (21.2-54.2); Mean Corpuscular HGB Conc 30.4 GM/DL (32-36); Mean Platelet Volume 11.5 FL (9.6-12.0); Monocytes % 10.5 % (1.7-12.7); Neutrophils % 49.7 % (38.7-73.9); Platelet Count 178 T/CUMM (130-400); Red Blood Count 3.51 MC/CUMM (3.8-5.5); Red Cell Distribution Width 16.3 % (9.3-17.3); White Blood Count 7.7 T/CUMM (4-12)
[2019-05-15 06:02] LABS: Osmolality,Calculated 302.1 MOS/KG (273-304)
[2019-05-15] MEDS: LEVOTHYROXINE 150 MCG TABLET PO SCH (06:30)
[2019-05-15] MEDS: FUROSEMIDE 40 MG/4 ML VIAL IV SCH (08:36)
[2019-05-15] MEDS: ISOSORBIDE MONONITRATE 20 MG TABLET PO SCH ×2 (08:38→21:18)
[2019-05-15] MEDS: PANTOPRAZOLE 40 MG TABLET PO SCH (08:38)
[2019-05-15] MEDS: CLOPIDOGREL 75 MG TABLET PO SCH (08:38)
[2019-05-15] MEDS: FERROUS SULFATE 325 MG TABLET PO SCH ×2 (08:38→21:19)
[2019-05-15] MEDS: FUROSEMIDE 80 MG TABLET PO SCH (08:38)
[2019-05-15] MEDS: SPIRONOLACTONE 25 MG TABLET PO SCH (08:38)
[2019-05-15] MEDS: cilostazoL 50 MG TABLET PO SCH ×2 (08:38→21:18)
[2019-05-15] MEDS: POTASSIUM CHLORIDE 8 MEQ CAPSULE PO SCH ×2 (08:38→21:18)
[2019-05-15] MEDS: MAGNESIUM OXIDE 400 MG TABLET PO SCH ×2 (08:38→21:18)
[2019-05-15] MEDS: DOCUSATE SODIUM 100 MG CAPSULE PO SCH ×2 (08:39→21:19)
[2019-05-15] MEDS: INSULIN ASPART PROTAMINE/ASPART 70/30 100 UNIT/ML SUBCUT SCH ×3 (08:39→17:29)
[2019-05-15] MEDS: carvediloL 25 MG TABLET PO SCH ×2 (08:39→21:19)
[2019-05-15] MEDS: BISOPROLOL 5 MG TABLET PO SCH ×2 (08:39→21:19)
[2019-05-15] MEDS: metOLazone 5 MG TABLET PO SCH (08:39)
[2019-05-15] MEDS: WARFARIN 7.5 MG TABLET PO SCH (17:29)
[2019-05-15] MEDS ORDERED: WARFARIN 2 MG TABLET PO ONE (18:00)
[2019-05-15] MEDS: SIMVASTATIN 20 MG TABLET PO SCH (21:19)
[2019-05-15] MEDS: AMITRIPTYLINE 100 MG TABLET PO SCH (21:19)
[2019-05-16] MEDS: ALBUTEROL/IPRATROPIUM 3 ML NEB RESP TX SCH ×4 (01:00→19:34)
[2019-05-16 04:54] LABS: Basophils % 0.4 % (0.0-0.8); Eosinophils # 0.2 10*3/uL (0.0-0.87); Eosinophils % 3.2 % (0.00-10.9); Hematocrit 28.7 VOL% (42.0-52.0); Immature Granulocytes % 0.4 %; Immature Granulocytes Absolute 0.03 #; Lymphocytes # 2.8 10*3/uL (1.4-4.0); Lymphocytes % 38.5 % (21.2-54.2); Mean Corpuscular HGB Conc 31.4 GM/DL (32-36); Mean Platelet Volume 11.3 FL (9.6-12.0); Monocytes % 13.3 % (1.7-12.7); Neutrophils % 44.2 % (38.7-73.9); Platelet Count 169 T/CUMM (130-400); Red Cell Distribution Width 16.3 % (9.3-17.3); White Blood Count 7.3 T/CUMM (4-12)
[2019-05-16 05:15] LABS: INR 1.4; PT Patient Result 14.9 SECS (9.6-12.2)
[2019-05-16 05:21] LABS: Calcium 8.1 MG/DL (8.5-10.1); Osmolality,Calculated 299.3 MOS/KG (273-304)
[2019-05-16] MEDS: LEVOTHYROXINE 150 MCG TABLET PO SCH (07:05)
[2019-05-16] MEDS: INSULIN ASPART PROTAMINE/ASPART 70/30 100 UNIT/ML SUBCUT SCH ×3 (09:43→17:06)
[2019-05-16] MEDS: cilostazoL 50 MG TABLET PO SCH ×2 (09:52→20:35)
[2019-05-16] MEDS: PANTOPRAZOLE 40 MG TABLET PO SCH (09:52)
[2019-05-16] MEDS: carvediloL 25 MG TABLET PO SCH ×2 (09:52→20:36)
[2019-05-16] MEDS: ISOSORBIDE MONONITRATE 20 MG TABLET PO SCH ×2 (09:52→20:34)
[2019-05-16] MEDS: DOCUSATE SODIUM 100 MG CAPSULE PO SCH ×2 (09:52→20:35)
[2019-05-16] MEDS: FERROUS SULFATE 325 MG TABLET PO SCH ×2 (09:52→20:34)
[2019-05-16] MEDS: POTASSIUM CHLORIDE 8 MEQ CAPSULE PO SCH ×2 (09:52→20:35)
[2019-05-16] MEDS: CLOPIDOGREL 75 MG TABLET PO SCH (09:52)
[2019-05-16] MEDS: BISOPROLOL 5 MG TABLET PO SCH ×2 (09:53→20:35)
[2019-05-16] MEDS: SPIRONOLACTONE 25 MG TABLET PO SCH (09:55)
[2019-05-16] MEDS: MAGNESIUM OXIDE 400 MG TABLET PO SCH ×2 (09:55→20:35)
[2019-05-16] MEDS: FUROSEMIDE 80 MG TABLET PO SCH (17:06)
[2019-05-16] MEDS: WARFARIN 7.5 MG TABLET PO SCH (17:06)
[2019-05-16] MEDS ORDERED: WARFARIN 2 MG TABLET PO ONE (18:00)
[2019-05-16] MEDS: AMITRIPTYLINE 100 MG TABLET PO SCH (20:34)
[2019-05-16] MEDS: SIMVASTATIN 20 MG TABLET PO SCH (20:35)
[2019-05-17] MEDS: ALBUTEROL/IPRATROPIUM 3 ML NEB RESP TX SCH ×4 (00:57→19:32)
[2019-05-17 05:46] LABS: INR 1.8; PT Patient Result 19.4 SECS (9.6-12.2)
[2019-05-17] MEDS: LEVOTHYROXINE 150 MCG TABLET PO SCH (06:02)
[2019-05-17 06:16] LABS: Calcium 8.1 MG/DL (8.5-10.1); Osmolality,Calculated 302.3 MOS/KG (273-304)
[2019-05-17] MEDS: MAGNESIUM OXIDE 400 MG TABLET PO SCH ×2 (09:26→21:23)
[2019-05-17] MEDS: DOCUSATE SODIUM 100 MG CAPSULE PO SCH ×2 (09:26→21:22)
[2019-05-17] MEDS: POTASSIUM CHLORIDE 8 MEQ CAPSULE PO SCH ×2 (09:26→21:23)
[2019-05-17] MEDS: FERROUS SULFATE 325 MG TABLET PO SCH ×2 (09:26→21:23)
[2019-05-17] MEDS: cilostazoL 50 MG TABLET PO SCH ×2 (09:26→21:23)
[2019-05-17] MEDS: SPIRONOLACTONE 25 MG TABLET PO SCH (09:26)
[2019-05-17] MEDS: PANTOPRAZOLE 40 MG TABLET PO SCH (09:27)
[2019-05-17] MEDS: CLOPIDOGREL 75 MG TABLET PO SCH (09:27)
[2019-05-17] MEDS: ISOSORBIDE MONONITRATE 20 MG TABLET PO SCH ×2 (09:27→21:23)
[2019-05-17] MEDS: carvediloL 25 MG TABLET PO SCH ×2 (09:27→21:23)
[2019-05-17] MEDS: BISOPROLOL 5 MG TABLET PO SCH ×2 (09:27→21:22)
[2019-05-17] MEDS: BENZONATATE 100 MG CAPSULE PO SCH ×3 (09:27→21:23)
[2019-05-17] MEDS: INSULIN ASPART PROTAMINE/ASPART 70/30 100 UNIT/ML SUBCUT SCH ×4 (09:28→16:22)
[2019-05-17] MEDS: WARFARIN 7.5 MG TABLET PO SCH (18:05)
[2019-05-17] MEDS: SIMVASTATIN 20 MG TABLET PO SCH (21:23)
[2019-05-17] MEDS: AMITRIPTYLINE 100 MG TABLET PO SCH (21:23)
[2019-05-18] MEDS: ALBUTEROL/IPRATROPIUM 3 ML NEB RESP TX SCH ×4 (00:45→19:22)
[2019-05-18 05:42] LABS: Basophils % 0.4 % (0.0-0.8); Eosinophils # 0.3 10*3/uL (0.0-0.87); Eosinophils % 4.2 % (0.00-10.9); Hematocrit 28.2 VOL% (42.0-52.0); Hemoglobin 8.7 GM/DL (14.0-18.0); Immature Granulocytes % 0.3 %; Immature Granulocytes Absolute 0.02 #; Lymphocytes # 2.3 10*3/uL (1.4-4.0); Mean Corpuscular HGB Conc 30.9 GM/DL (32-36); Mean Platelet Volume 11.9 FL (9.6-12.0); Monocytes % 11.6 % (1.7-12.7); Neutrophils % 51.5 % (38.7-73.9); Platelet Count 172 T/CUMM (130-400); Red Blood Count 3.24 MC/CUMM (3.8-5.5); Red Cell Distribution Width 16.5 % (9.3-17.3); White Blood Count 7.2 T/CUMM (4-12)
[2019-05-18] MEDS: LEVOTHYROXINE 150 MCG TABLET PO SCH (06:01)
[2019-05-18 06:08] LABS: INR 1.9; PT Patient Result 20.7 SECS (9.6-12.2)
[2019-05-18 06:11] LABS: Osmolality,Calculated 304.4 MOS/KG (273-304)
[2019-05-18] MEDS: INSULIN ASPART PROTAMINE/ASPART 70/30 100 UNIT/ML SUBCUT SCH ×3 (08:48→17:41)
[2019-05-18] MEDS: BISOPROLOL 5 MG TABLET PO SCH ×2 (08:49→21:19)
[2019-05-18] MEDS: MAGNESIUM OXIDE 400 MG TABLET PO SCH ×2 (08:50→21:19)
[2019-05-18] MEDS: DOCUSATE SODIUM 100 MG CAPSULE PO SCH ×2 (08:50→21:21)
[2019-05-18] MEDS: POTASSIUM CHLORIDE 8 MEQ CAPSULE PO SCH ×2 (08:50→21:21)
[2019-05-18] MEDS: cilostazoL 50 MG TABLET PO SCH ×2 (08:50→21:18)
[2019-05-18] MEDS: carvediloL 25 MG TABLET PO SCH ×2 (08:50→21:20)
[2019-05-18] MEDS: PANTOPRAZOLE 40 MG TABLET PO SCH (08:50)
[2019-05-18] MEDS: BENZONATATE 100 MG CAPSULE PO SCH ×3 (08:50→21:18)
[2019-05-18] MEDS: ISOSORBIDE MONONITRATE 20 MG TABLET PO SCH ×2 (08:50→21:19)
[2019-05-18] MEDS: CLOPIDOGREL 75 MG TABLET PO SCH (08:50)
[2019-05-18] MEDS: FERROUS SULFATE 325 MG TABLET PO SCH ×2 (08:52→21:20)
[2019-05-18] MEDS: guaiFENesin 200 MG/10 ML UDCUP PO PRN (12:02)
[2019-05-18] MEDS: WARFARIN 7.5 MG TABLET PO SCH (17:41)
[2019-05-18] MEDS: AMITRIPTYLINE 100 MG TABLET PO SCH (21:17)
[2019-05-18] MEDS: SIMVASTATIN 20 MG TABLET PO SCH (21:20)
[2019-05-19] MEDS: ALBUTEROL/IPRATROPIUM 3 ML NEB RESP TX SCH ×4 (00:43→20:34)
[2019-05-19 05:14] LABS: Basophils % 0.6 % (0.0-0.8); Eosinophils # 0.2 10*3/uL (0.0-0.87); Eosinophils % 3.2 % (0.00-10.9); Hematocrit 29.2 VOL% (42.0-52.0); Hemoglobin 8.9 GM/DL (14.0-18.0); Immature Granulocytes % 0.3 %; Immature Granulocytes Absolute 0.02 #; Lymphocytes # 2.2 10*3/uL (1.4-4.0); Lymphocytes % 30.9 % (21.2-54.2); Mean Corpuscular HGB Conc 30.5 GM/DL (32-36); Mean Corpuscular Volume 88.5 FL (87-102); Monocytes % 11.2 % (1.7-12.7); Neutrophils % 53.8 % (38.7-73.9); Platelet Count 176 T/CUMM (130-400); Red Cell Distribution Width 16.7 % (9.3-17.3); White Blood Count 7.2 T/CUMM (4-12)
[2019-05-19 05:35] LABS: PT Patient Result 21.4 SECS (9.6-12.2)
[2019-05-19 06:04] LABS: Calcium 7.7 MG/DL (8.5-10.1); Osmolality,Calculated 308.4 MOS/KG (273-304)
[2019-05-19] MEDS: LEVOTHYROXINE 150 MCG TABLET PO SCH (06:56)
[2019-05-19] MEDS: INSULIN ASPART PROTAMINE/ASPART 70/30 100 UNIT/ML SUBCUT SCH ×3 (09:08→16:29)
[2019-05-19] MEDS: BISOPROLOL 5 MG TABLET PO SCH ×2 (09:09→21:39)
[2019-05-19] MEDS: POTASSIUM CHLORIDE 8 MEQ CAPSULE PO SCH ×2 (09:09→21:41)
[2019-05-19] MEDS: carvediloL 25 MG TABLET PO SCH ×2 (09:09→21:39)
[2019-05-19] MEDS: CLOPIDOGREL 75 MG TABLET PO SCH (09:10)
[2019-05-19] MEDS: ISOSORBIDE MONONITRATE 20 MG TABLET PO SCH ×2 (09:10→21:40)
[2019-05-19] MEDS: FERROUS SULFATE 325 MG TABLET PO SCH ×2 (09:10→21:40)
[2019-05-19] MEDS: PANTOPRAZOLE 40 MG TABLET PO SCH (09:10)
[2019-05-19] MEDS: cilostazoL 50 MG TABLET PO SCH ×2 (09:10→21:40)
[2019-05-19] MEDS: BENZONATATE 100 MG CAPSULE PO SCH ×3 (09:10→21:38)
[2019-05-19] MEDS: FUROSEMIDE 40 MG TABLET PO SCH (09:10)
[2019-05-19] MEDS: DOCUSATE SODIUM 100 MG CAPSULE PO SCH ×2 (09:11→21:42)
[2019-05-19] MEDS: MAGNESIUM OXIDE 400 MG TABLET PO SCH ×2 (12:12→21:40)
[2019-05-19] MEDS: WARFARIN 7.5 MG TABLET PO SCH (17:56)
[2019-05-19] MEDS: SIMVASTATIN 20 MG TABLET PO SCH (21:40)
[2019-05-19] MEDS: AMITRIPTYLINE 100 MG TABLET PO SCH (21:41)
[2019-05-20] MEDS: ALBUTEROL/IPRATROPIUM 3 ML NEB RESP TX SCH ×4 (01:52→20:29)
[2019-05-20 04:52] LABS: Basophils # 0.1 10*3/uL (0.0-0.2); Basophils % 0.7 % (0.0-0.8); Eosinophils # 0.2 10*3/uL (0.0-0.87); Eosinophils % 3.1 % (0.00-10.9); Hemoglobin 8.5 GM/DL (14.0-18.0); Immature Granulocytes % 0.3 %; Immature Granulocytes Absolute 0.02 #; Lymphocytes # 2.4 10*3/uL (1.4-4.0); Lymphocytes % 33.2 % (21.2-54.2); Mean Corpuscular HGB Conc 30.4 GM/DL (32-36); Mean Corpuscular Volume 88.9 FL (87-102); Mean Platelet Volume 11.3 FL (9.6-12.0); Monocytes % 11.2 % (1.7-12.7); Neutrophils % 51.5 % (38.7-73.9); Platelet Count 163 T/CUMM (130-400); Red Blood Count 3.15 MC/CUMM (3.8-5.5); Red Cell Distribution Width 16.5 % (9.3-17.3); White Blood Count 7.3 T/CUMM (4-12)
[2019-05-20 04:59] LABS: Calcium 7.7 MG/DL (8.5-10.1); Osmolality,Calculated 309.3 MOS/KG (273-304)
[2019-05-20] MEDS: LEVOTHYROXINE 150 MCG TABLET PO SCH (06:25)
[2019-05-20] MEDS: INSULIN ASPART PROTAMINE/ASPART 70/30 100 UNIT/ML SUBCUT SCH ×3 (08:50→17:17)
[2019-05-20] MEDS: CLOPIDOGREL 75 MG TABLET PO SCH (08:50)
[2019-05-20] MEDS: BENZONATATE 100 MG CAPSULE PO SCH ×3 (08:50→21:49)
[2019-05-20] MEDS: PANTOPRAZOLE 40 MG TABLET PO SCH (08:51)
[2019-05-20] MEDS: ISOSORBIDE MONONITRATE 20 MG TABLET PO SCH ×2 (08:51→21:49)
[2019-05-20] MEDS: FUROSEMIDE 40 MG TABLET PO SCH ×2 (08:51→15:37)
[2019-05-20] MEDS: carvediloL 25 MG TABLET PO SCH ×2 (08:52→21:50)
[2019-05-20] MEDS: cilostazoL 50 MG TABLET PO SCH ×2 (08:52→21:49)
[2019-05-20] MEDS: FERROUS SULFATE 325 MG TABLET PO SCH ×2 (08:52→21:50)
[2019-05-20] MEDS: POTASSIUM CHLORIDE 8 MEQ CAPSULE PO SCH ×2 (08:52→21:49)
[2019-05-20] MEDS: DOCUSATE SODIUM 100 MG CAPSULE PO SCH ×2 (08:52→21:51)
[2019-05-20] MEDS: MAGNESIUM OXIDE 400 MG TABLET PO SCH ×2 (08:53→21:54)
[2019-05-20] MEDS: BISOPROLOL 5 MG TABLET PO SCH ×2 (08:53→21:48)
[2019-05-20] MEDS: WARFARIN 7.5 MG TABLET PO SCH (17:17)
[2019-05-20] MEDS: guaiFENesin 200 MG/10 ML UDCUP PO PRN (17:23)
[2019-05-20] MEDS: AMITRIPTYLINE 100 MG TABLET PO SCH (21:48)
[2019-05-20] MEDS: SIMVASTATIN 20 MG TABLET PO SCH (21:49)
[2019-05-21] MEDS: ALBUTEROL/IPRATROPIUM 3 ML NEB RESP TX SCH ×4 (01:18→19:24)
[2019-05-21 05:19] LABS: Calcium 7.5 MG/DL (8.5-10.1); Osmolality,Calculated 312.3 MOS/KG (273-304)
[2019-05-21] MEDS: LEVOTHYROXINE 150 MCG TABLET PO SCH (06:15)
[2019-05-21] MEDS: DOCUSATE SODIUM 100 MG CAPSULE PO SCH ×2 (08:17→21:50)
[2019-05-21] MEDS: carvediloL 25 MG TABLET PO SCH ×2 (08:17→21:50)
[2019-05-21] MEDS: CLOPIDOGREL 75 MG TABLET PO SCH (08:17)
[2019-05-21] MEDS: PANTOPRAZOLE 40 MG TABLET PO SCH (08:17)
[2019-05-21] MEDS: FUROSEMIDE 40 MG TABLET PO SCH ×2 (08:18→16:43)
[2019-05-21] MEDS: FERROUS SULFATE 325 MG TABLET PO SCH ×2 (08:18→21:51)
[2019-05-21] MEDS: INSULIN ASPART PROTAMINE/ASPART 70/30 100 UNIT/ML SUBCUT SCH ×3 (08:18→16:44)
[2019-05-21] MEDS: ISOSORBIDE MONONITRATE 20 MG TABLET PO SCH ×2 (08:18→21:50)
[2019-05-21] MEDS: BISOPROLOL 5 MG TABLET PO SCH ×2 (08:20→21:50)
[2019-05-21] MEDS: POTASSIUM CHLORIDE 8 MEQ CAPSULE PO SCH ×2 (10:33→21:51)
[2019-05-21] MEDS: BENZONATATE 100 MG CAPSULE PO SCH ×3 (10:33→21:51)
[2019-05-21] MEDS: cilostazoL 50 MG TABLET PO SCH ×2 (10:33→21:51)
[2019-05-21] MEDS: MAGNESIUM OXIDE 400 MG TABLET PO SCH ×2 (10:33→21:50)
[2019-05-21] MEDS: WARFARIN 7.5 MG TABLET PO SCH (18:03)
[2019-05-21] MEDS: AMITRIPTYLINE 100 MG TABLET PO SCH (21:50)
[2019-05-21] MEDS: SIMVASTATIN 20 MG TABLET PO SCH (21:51)
[2019-05-22] MEDS: ALBUTEROL/IPRATROPIUM 3 ML NEB RESP TX SCH ×2 (01:39→08:19)
[2019-05-22 05:00] LABS: Basophils % 0.4 % (0.0-0.8); Eosinophils # 0.2 10*3/uL (0.0-0.87); Eosinophils % 3.3 % (0.00-10.9); Hemoglobin 8.7 GM/DL (14.0-18.0); Immature Granulocytes % 0.1 %; Immature Granulocytes Absolute 0.01 #; Lymphocytes # 2.3 10*3/uL (1.4-4.0); Lymphocytes % 33.2 % (21.2-54.2); Mean Corpuscular HGB Conc 31.1 GM/DL (32-36); Mean Corpuscular Volume 86.7 FL (87-102); Mean Platelet Volume 12.1 FL (9.6-12.0); Monocytes % 12.4 % (1.7-12.7); Neutrophils % 50.6 % (38.7-73.9); Platelet Count 180 T/CUMM (130-400); Red Blood Count 3.23 MC/CUMM (3.8-5.5); Red Cell Distribution Width 16.6 % (9.3-17.3)
[2019-05-22 05:15] LABS: Calcium 7.6 MG/DL (8.5-10.1); Osmolality,Calculated 312.1 MOS/KG (273-304)
[2019-05-22 05:30] LABS: PT Patient Result 32.2 SECS (9.6-12.2)
[2019-05-22] MEDS: LEVOTHYROXINE 150 MCG TABLET PO SCH (06:04)
[2019-05-22] MEDS: INSULIN ASPART PROTAMINE/ASPART 70/30 100 UNIT/ML SUBCUT SCH (08:46)
[2019-05-22] MEDS: FUROSEMIDE 40 MG TABLET PO SCH (08:47)
[2019-05-22] MEDS: cilostazoL 50 MG TABLET PO SCH (08:47)
[2019-05-22] MEDS: FERROUS SULFATE 325 MG TABLET PO SCH (08:47)
[2019-05-22] MEDS: MAGNESIUM OXIDE 400 MG TABLET PO SCH (08:47)
[2019-05-22] MEDS: BISOPROLOL 5 MG TABLET PO SCH (08:47)
[2019-05-22] MEDS: BENZONATATE 100 MG CAPSULE PO SCH (08:47)
[2019-05-22] MEDS: ISOSORBIDE MONONITRATE 20 MG TABLET PO SCH (08:48)
[2019-05-22] MEDS: DOCUSATE SODIUM 100 MG CAPSULE PO SCH (08:48)
[2019-05-22] MEDS: POTASSIUM CHLORIDE 8 MEQ CAPSULE PO SCH (08:48)
[2019-05-22] MEDS: CLOPIDOGREL 75 MG TABLET PO SCH (08:48)
[2019-05-22] MEDS: carvediloL 25 MG TABLET PO SCH (08:48)
[2019-05-22] MEDS: PANTOPRAZOLE 40 MG TABLET PO SCH (08:48)
[2019-05-22 11:17] VITALS: BP 132/69
== END 2019-05-22 11:50 | disposition home health service (06) | DRG 291 ==
LOC: N.ED 14:43 → N.EDINP 16:44 → N.TELEN 17:25
PROVIDERS: ADMIT Internal Medicine; ATTEND Internal Medicine

== ENCOUNTER 2020-12-08 17:41 | Inpatient (IN) ==
[2020-12-08] MEDS ORDERED: SODIUM CHLORIDE 0.9% 250 ML IV STA (18:35)
[2020-12-08 19:52] LABS: Basophils % 0.3 % (0.0-0.8); Eosinophils % 0.1 % (0.00-10.9); Hematocrit 37.4 VOL% (42.0-52.0); Hemoglobin 11.8 GM/DL (14.0-18.0); Immature Granulocytes % 2.6 %; Immature Granulocytes Absolute 0.28 #; Lymphocytes # 0.6 10*3/uL (1.4-4.0); Lymphocytes % 5.5 % (21.2-54.2); Mean Corpuscular HGB Conc 31.6 GM/DL (32-36); Mean Corpuscular Volume 90.1 FL (87-102); Mean Platelet Volume 10.6 FL (9.6-12.0); Monocytes % 6.7 % (1.7-12.7); NRBC # 0.08 10*3/uL; Neutrophils % 84.8 % (38.7-73.9); Platelet Count 346 T/CUMM (130-400); Red Blood Count 4.15 MC/CUMM (3.8-5.5); Red Cell Distribution Width 15.5 % (9.3-17.3); White Blood Count 10.8 T/CUMM (4-12)
[2020-12-08 20:18] LABS: Alanine Aminotransferase 20 U/L (16-61); Albumin 2.1 G/DL (3.4-5.0); Alkaline Phosphatase 81 U/L (45-117); Aspartate Amino Transferase 34 U/L (0-37); Blood Urea Nitrogen 60 MG/DL (7-18); CKMB % 5.5 %; Calcium 8.4 MG/DL (8.5-10.1); Carbon Dioxide 18 MMOL/L (21-32); Estimated Glom Filtration Rate 16 ML/MIN; Glucose 248 MG/DL (74-106); Osmolality,Calculated 292.2 MOS/KG (273-304); Potassium 4.2 MMOL/L (3.5-5.1); Sodium 134 MMOL/L (136-145); Total Protein 6.5 G/DL (6.4-8.2)
[2020-12-08] MEDS ORDERED: PIPERACILLIN/TAZOBACTAM 3,375 MG in SODIUM CHLORIDE 0.9% 100 ML IV STA (20:24)
[2020-12-08] MEDS ORDERED: VANCOMYCIN INJ 1,000 MG in SODIUM CHLORIDE 0.9% 250 ML IV STA (20:24)
[2020-12-08 20:58] LABS: Sedimentation Rate-Westergren 54 MM/HR (0-20)
[2020-12-08 21:00] LABS: PT Patient Result 159.7 SECS (10.5-12.0)
[2020-12-08 21:02] LABS: INR 17.6
[2020-12-08] MEDS ORDERED: PHYTONADIONE 10 MG/1 ML AMP SUBCUT STA (21:13)
[2020-12-08] MEDS ORDERED: PHYTONADIONE 5 MG/5 ML ORAL.SYR PO STA (21:16)
[2020-12-08] MEDS ORDERED: SODIUM CHLORIDE 0.9% 1,000 ML IV PRN (21:23)
[2020-12-08] MEDS ORDERED: NOREPINEPHRINE 4 MG/4 ML VIAL IV ONE (21:48)
[2020-12-08] MEDS: NOREPINEPHRINE 8 MG in SODIUM CHLORIDE 0.9% 242 ML IV PRN (22:00)
[2020-12-08] MEDS ORDERED: SODIUM CHLORIDE 0.9% 1,000 ML IV STA (22:36)
[2020-12-08] MEDS ORDERED: HYDROCORTISONE 100 MG VIAL IV STA (23:02)
[2020-12-08 23:09] LABS: Ferritin 6260.3 ng/mL (26-388)
[2020-12-08] MEDS ORDERED: SODIUM BICARBONATE 50 MEQ/50 ML SYRINGE IV ONE (23:28)
[2020-12-08] MEDS ORDERED: SODIUM BICARBONATE 50 MEQ/50 ML VIAL IV STA (23:45)
[2020-12-08 23:51] LABS: ABG HCO3 8.6 MMOL/L (20-26); ABG PH 7.434 (7.35-7.45); ABG PO2 157.4 MM HG (80-95)
[2020-12-08 23:52] LABS: ABG Oxygen Saturation 99.1 % (95-100)
[2020-12-08 23:56] LABS: ABG PCO2 13.1 MM HG (35-48)
[2020-12-09] MEDS ORDERED: SODIUM BICARBONATE 50 MEQ/50 ML VIAL IV ONE ×3 (00:05→06:44)
[2020-12-09] MEDS ORDERED: MORPHINE 2 MG/1 ML SYRINGE IV PRN (00:06)
[2020-12-09] MEDS ORDERED: ACETAMINOPHEN 325 MG TABLET PO PRN (00:06)
[2020-12-09] MEDS ORDERED: ALBUTEROL 2.5 MG/3 ML NEB RESP TX PRN (00:06)
[2020-12-09] MEDS ORDERED: ONDANSETRON 4 MG/2 ML VIAL IV PRN (00:06)
[2020-12-09] MEDS ORDERED: SODIUM BICARB INJ 100 MEQ in DEXTROSE 5% 900 ML IV SCH (00:25)
[2020-12-09] MEDS ORDERED: GLUCAGON 1 MG VIAL IM PRN (00:29)
[2020-12-09] MEDS ORDERED: ROCURONIUM 100 MG/10 ML VIAL IV ONE (00:30)
[2020-12-09] MEDS ORDERED: FAMOTIDINE 20 MG/2 ML VIAL IV SCH ×2 (00:30→09:00)
[2020-12-09] MEDS ORDERED: ETOMIDATE 20 MG/10 ML VIAL IV ONE (00:30)
[2020-12-09] MEDS ORDERED: PHENYLEPHRINE DRIP 40 MG/250 ML PREMIX IV ONE (00:34)
[2020-12-09] MEDS ORDERED: SODIUM CHLORIDE 0.9% 1,000 ML IV ONE ×2 (00:36→01:01)
[2020-12-09] MEDS ORDERED: VANCOMYCIN INJ 750 MG in SODIUM CHLORIDE 0.9% 250 ML IV PRN (00:42)
[2020-12-09] MEDS ORDERED: AMIODARONE INJ 150 MG in DEXTROSE 5% 100 ML IV ONE ×2 (00:55→12:25)
[2020-12-09] MEDS ORDERED: AMIODARONE 150 MG/3 ML VIAL ONE (00:56)
[2020-12-09] MEDS ORDERED: AMIODARONE INJ 450 MG in DEXTROSE 5% 241 ML IV SCH ×3 (01:00→18:30)
[2020-12-09] MEDS ORDERED: SODIUM BICARB INJ 50 MEQ in SODIUM CHLORIDE 0.45% 1,000 ML IV SCH (01:00)
[2020-12-09] MEDS ORDERED: AMIODARONE 150 MG/3 ML VIAL IV ONE (01:00)
[2020-12-09] MEDS ORDERED: SODIUM BICARB INJ 50 MEQ in DEXTROSE 5% 1,000 ML IV SCH (01:03)
[2020-12-09] MEDS ORDERED: MIDAZOLAM 100 MG in SODIUM CHLORIDE 0.9% 80 ML IV PRN (01:13)
[2020-12-09] MEDS ORDERED: MIDAZOLAM 10 MG/2 ML VIAL ONE (01:17)
[2020-12-09] MEDS ORDERED: MIDAZOLAM 2 MG/2 ML VIAL IV ONE (01:20)
[2020-12-09] MEDS ORDERED: VANCOMYCIN INJ 1,500 MG in SODIUM CHLORIDE 0.9% 500 ML IV ONE (01:30)
[2020-12-09] MEDS ORDERED: VANCOMYCIN INJ 1,000 MG in SODIUM CHLORIDE 0.9% 250 ML IV ONE (01:30)
[2020-12-09 01:38] LABS: ABG Base Excess -18.1 MMOL/L (-2.5-2.5); ABG HCO3 10.4 MMOL/L (20-26); ABG Oxygen Saturation 99.6 % (95-100); ABG PCO2 25.7 MM HG (35-48); ABG TCO2 9.2 MMOL/L (23-27)
[2020-12-09 01:40] LABS: ABG PH 7.163 (7.35-7.45)
[2020-12-09] MEDS: PHENYLEPHRINE DRIP 40 MG/250 ML PREMIX IV PRN ×2 (01:49→04:57)
[2020-12-09 01:52] LABS: Barbiturates Screen,Urine Negative (Negative); Benzodiazepines Screen,Urine Negative (Negative); Cannabinoid Screen,Urine Negative (Negative); Opiate Screen,Urine Positive (Negative); Phencyclidine Screen,Urine Negative (Negative)
[2020-12-09 01:53] LABS: Bacteria,Urine Occasional /HPF (Few); Bilirubin,Urine Negative (Negative); Blood, Urine Large mg/dL (Negative); Glucose,Urine (UA) Negative (Negative); Ketones,Urine Negative (Negative); Nitrite,Urine Negative (Negative); Protein,Urine 100 MG/DL; RBC,Urine 49 /HPF (0-4); Urine Appearance Slightly Hazy (Clear); Urine Color Yellow (Yellow); Urine Specific Gravity 1.019 (1.001-1.035); Urine Urobilinogen < 2.0 EU/DL (0.2-1.0)
[2020-12-09] MEDS ORDERED: SODIUM BICARB INJ 150 MEQ in STERILE WATER INJ 850 ML IV SCH (02:00)
[2020-12-09 02:13] LABS: ABG Base Excess -18.3 MMOL/L (-2.5-2.5); ABG HCO3 10.2 MMOL/L (20-26); ABG Oxygen Saturation 99.6 % (95-100); ABG PCO2 24.1 MM HG (35-48); ABG TCO2 8.9 MMOL/L (23-27); Glucose Heart Surgery 160 MG/DL (74-106)
[2020-12-09] MEDS ORDERED: SODIUM CHLORIDE 0.9% 1,000 ML IV PRN ×2 (02:16→08:28)
[2020-12-09 02:17] LABS: ABG PH 7.176 (7.35-7.45); Hematocrit Heart Surgery 15.8 PERCENT (42-52)
[2020-12-09 02:18] LABS: Basophils % 0.1 % (0.0-0.8); Eosinophils # 0.1 10*3/uL (0.0-0.87); Eosinophils % 0.2 % (0.00-10.9); Immature Granulocytes % 6.7 %; Immature Granulocytes Absolute 1.88 #; Lymphocytes # 2.8 10*3/uL (1.4-4.0); Lymphocytes % 9.9 % (21.2-54.2); Mean Corpuscular HGB Conc 29.3 GM/DL (32-36); Mean Corpuscular Volume 98.8 FL (87-102); Mean Platelet Volume 10.7 FL (9.6-12.0); Monocytes % 7.9 % (1.7-12.7); NRBC # 0.29 10*3/uL; Neutrophils % 75.2 % (38.7-73.9); Platelet Count 514 T/CUMM (130-400); Red Blood Count 1.66 MC/CUMM (3.8-5.5); Red Cell Distribution Width 15.9 % (9.3-17.3); White Blood Count 28.2 T/CUMM (4-12)
[2020-12-09 02:21] LABS: Hemoglobin 4.8 GM/DL (14.0-18.0)
[2020-12-09 02:22] LABS: Hematocrit 16.4 VOL% (42.0-52.0)
[2020-12-09 02:27] LABS: Band Neutrophils 1 % (0-10); Lymphocytes 8 % (20-55); Nucleated Red Blood Cells 2 (0-5); Platelet Estimate Increased; Segmented Neutrophils 86 % (50-85); Total Cells Counted 100
[2020-12-09 02:29] LABS: Hypochromasia Slight
[2020-12-09 02:41] LABS: PT Patient Result 61.3 SECS (10.5-12.0)
[2020-12-09 02:44] LABS: Albumin 1.7 G/DL (3.4-5.0); Bilirubin,Total 0.7 MG/DL (0.20-1.00); Calcium 7.4 MG/DL (8.5-10.1); Osmolality,Calculated 301.3 MOS/KG (273-304); Potassium 4.8 MMOL/L (3.5-5.1); Total Protein 5.4 G/DL (6.4-8.2)
[2020-12-09 02:44] LABS: INR 6.3
[2020-12-09] MEDS: NOREPINEPHRINE 8 MG in SODIUM CHLORIDE 0.9% 242 ML IV PRN ×3 (03:10→07:20)
[2020-12-09] MEDS ORDERED: PHYTONADIONE 5 MG/5 ML ORAL.SYR PO STA (03:37)
[2020-12-09] MEDS ORDERED: NOREPINEPHRINE 4 MG/4 ML VIAL IV ONE ×3 (04:50→16:36)
[2020-12-09 04:51] LABS: ABG Base Excess -19.5 MMOL/L (-2.5-2.5); ABG HCO3 7.5 MMOL/L (20-26); ABG Oxygen Saturation 99.7 % (95-100); ABG PCO2 22.2 MM HG (35-48); ABG PO2 481.8 MM HG (80-95); ABG TCO2 8.2 MMOL/L (23-27)
[2020-12-09 04:53] LABS: ABG PH 7.149 (7.35-7.45)
[2020-12-09 04:56] LABS: Basophils % 0.1 % (0.0-0.8); Eosinophils # 0.1 10*3/uL (0.0-0.87); Eosinophils % 0.2 % (0.00-10.9); Immature Granulocytes % 5.9 %; Immature Granulocytes Absolute 2.08 #; Lymphocytes # 1.9 10*3/uL (1.4-4.0); Lymphocytes % 5.5 % (21.2-54.2); Mean Corpuscular HGB Conc 28.6 GM/DL (32-36); Mean Corpuscular Volume 100.6 FL (87-102); Mean Platelet Volume 10.7 FL (9.6-12.0); Monocytes % 8.2 % (1.7-12.7); NRBC # 0.28 10*3/uL; Neutrophils % 80.1 % (38.7-73.9); Platelet Count 492 T/CUMM (130-400); Red Blood Count 1.67 MC/CUMM (3.8-5.5); Red Cell Distribution Width 15.9 % (9.3-17.3); White Blood Count 35.4 T/CUMM (4-12)
[2020-12-09 05:01] LABS: Hemoglobin 4.8 GM/DL (14.0-18.0)
[2020-12-09 05:02] LABS: Hematocrit 16.8 VOL% (42.0-52.0)
[2020-12-09 05:14] LABS: Hypochromasia 1+; Lymphocytes 9 % (20-55); Microcytosis 1+; Ovalocytes Slight; Platelet Estimate Adequate; Segmented Neutrophils 79 % (50-85); Total Cells Counted 100
[2020-12-09 05:33] LABS: Albumin 1.7 G/DL (3.4-5.0); Bilirubin,Total 1.1 MG/DL (0.20-1.00); Calcium 7.5 MG/DL (8.5-10.1); Osmolality,Calculated 300.3 MOS/KG (273-304); Potassium 5.1 MMOL/L (3.5-5.1); Total Protein 5.3 G/DL (6.4-8.2)
[2020-12-09] MEDS: INSULIN REGULAR 100 UNIT/ML SUBCUT SCH ×3 (06:18→18:21)
[2020-12-09 07:47] LABS: PT Patient Result 79.4 SECS (10.5-12.0)
[2020-12-09 07:49] LABS: INR 8.3
[2020-12-09 08:02] LABS: CKMB % 2.1 %; High Sensitive Troponin I* 10850.1 ng/L (0-78)
[2020-12-09 08:08] LABS: Albumin 1.8 G/DL (3.4-5.0); Bilirubin,Total 1.2 MG/DL (0.20-1.00); Calcium 7.4 MG/DL (8.5-10.1); Osmolality,Calculated 297.5 MOS/KG (273-304); Potassium 5.3 MMOL/L (3.5-5.1); Total Protein 5.6 G/DL (6.4-8.2)
[2020-12-09] MEDS: methylPREDNISolone SOD SUC 125 MG/2 ML VIAL IV SCH ×2 (08:41→18:00)
[2020-12-09] MEDS ORDERED: LEVOTHYROXINE 175 MCG TABLET PO SCH (09:00)
[2020-12-09] MEDS ORDERED: CLOPIDOGREL 75 MG TABLET PO SCH (09:00)
[2020-12-09] MEDS ORDERED: cilostazoL 50 MG TABLET PO SCH (09:00)
[2020-12-09] MEDS ORDERED: PHYTONADIONE 5 MG/5 ML ORAL.SYR PO ONE (09:00)
[2020-12-09] MEDS: PHENYLEPHRINE INJ 160 MG in SODIUM CHLORIDE 0.9% 234 ML IV PRN (09:32)
[2020-12-09 10:19] LABS: ABG Base Excess -13.5 MMOL/L (-2.5-2.5); ABG HCO3 13.8 MMOL/L (20-26); ABG Oxygen Saturation 99.7 % (95-100); ABG PCO2 26.9 MM HG (35-48); ABG PH 7.269 (7.35-7.45); ABG TCO2 11.6 MMOL/L (23-27)
[2020-12-09 10:20] LABS: Basophils # 0.1 10*3/uL (0.0-0.2); Basophils % 0.2 % (0.0-0.8); Hematocrit 22.4 VOL% (42.0-52.0); Immature Granulocytes % 4.4 %; Immature Granulocytes Absolute 1.63 #; Lymphocytes % 2.6 % (21.2-54.2); Mean Corpuscular HGB Conc 31.3 GM/DL (32-36); Mean Corpuscular Volume 94.1 FL (87-102); Mean Platelet Volume 10.2 FL (9.6-12.0); Monocytes % 5.3 % (1.7-12.7); Neutrophils % 87.5 % (38.7-73.9); Platelet Count 433 T/CUMM (130-400); Red Blood Count 2.38 MC/CUMM (3.8-5.5); Red Cell Distribution Width 15.8 % (9.3-17.3); White Blood Count 37.5 T/CUMM (4-12)
[2020-12-09] MEDS: PIPERACILLIN/TAZOBACTAM 3,375 MG in SODIUM CHLORIDE 0.9% 100 ML IV SCH ×2 (10:25→21:10)
[2020-12-09] MEDS: NOREPINEPHRINE 16 MG in SODIUM CHLORIDE 0.9% 234 ML IV PRN ×2 (10:28→16:32)
[2020-12-09 10:42] LABS: Calcium 7.2 MG/DL (8.5-10.1); Osmolality,Calculated 301.5 MOS/KG (273-304); Potassium 5.3 MMOL/L (3.5-5.1)
[2020-12-09 10:52] LABS: Band Neutrophils 4 % (0-10); Lymphocytes 3 % (20-55); Myelocytes 3 %; Nucleated Red Blood Cells 2 (0-5); Platelet Estimate Normal; Segmented Neutrophils 85 % (50-85); Total Cells Counted 100
[2020-12-09 10:54] LABS: Macrocytosis Slight
[2020-12-09 10:55] LABS: Ovalocytes Slight
[2020-12-09 10:56] LABS: Hypersegmented Neutrophil Few
[2020-12-09 11:09] LABS: Albumin 1.8 G/DL (3.4-5.0); Bilirubin,Direct 0.74 MG/DL (0.0-0.20); Bilirubin,Indirect 0.6 MG/DL (0.0-1.0); Bilirubin,Total 1.3 MG/DL (0.20-1.00); Total Protein 5.4 G/DL (6.4-8.2)
[2020-12-09 11:16] LABS: Free T4 (Free Thyroxine) 1.06 NG/DL (0.76-1.46); Thyroid Stimulating Hormone 1.53 uIU/ml (0.358-3.74)
[2020-12-09] MEDS: SODIUM BICARB INJ 150 MEQ in STERILE WATER INJ 1,000 ML IV SCH ×2 (11:23→19:14)
[2020-12-09] MEDS ORDERED: HYDROCORTISONE 100 MG VIAL IV SCH (11:30)
[2020-12-09] MEDS ORDERED: DIGOXIN 0.5 MG/2 ML AMP IV ONE (13:08)
[2020-12-09] MEDS ORDERED: HEPARIN 10,000 UNIT/10 ML VIAL IV SCH (15:15)
[2020-12-09] MEDS ORDERED: VANCOMYCIN INJ 750 MG in SODIUM CHLORIDE 0.9% 250 ML IV ONE (17:00)
[2020-12-09 17:46] LABS: ABG HCO3 20.4 MMOL/L (20-26); ABG Oxygen Saturation 99.6 % (95-100); ABG PCO2 29.4 MM HG (35-48); ABG PH 7.408 (7.35-7.45); ABG TCO2 16.3 MMOL/L (23-27); Basophils # 0.1 10*3/uL (0.0-0.2); Basophils % 0.2 % (0.0-0.8); Hematocrit 24.8 VOL% (42.0-52.0); Hemoglobin 8.2 GM/DL (14.0-18.0); Immature Granulocytes % 3.6 %; Immature Granulocytes Absolute 1.11 #; Lymphocytes # 0.7 10*3/uL (1.4-4.0); Lymphocytes % 2.1 % (21.2-54.2); Mean Corpuscular HGB Conc 33.1 GM/DL (32-36); Mean Corpuscular Volume 89.2 FL (87-102); Mean Platelet Volume 10.1 FL (9.6-12.0); Monocytes % 4.8 % (1.7-12.7); NRBC # 0.43 10*3/uL; Neutrophils % 89.3 % (38.7-73.9); Platelet Count 342 T/CUMM (130-400); Red Blood Count 2.78 MC/CUMM (3.8-5.5); Red Cell Distribution Width 15.8 % (9.3-17.3)
[2020-12-09 17:56] LABS: INR 3.7
[2020-12-09 17:57] LABS: PT Patient Result 37.1 SECS (10.5-12.0)
[2020-12-09 18:04] LABS: Calcium 7.3 MG/DL (8.5-10.1); Osmolality,Calculated 281.1 MOS/KG (273-304); Potassium 4.7 MMOL/L (3.5-5.1)
[2020-12-09 18:05] VITALS: BP 117/49
[2020-12-09 18:32] LABS: Hypochromasia 1+; Lymphocytes 2 % (20-55); Microcytosis 1+; Nucleated Red Blood Cells 1 (0-5); Platelet Estimate Adequate; Segmented Neutrophils 96 % (50-85); Total Cells Counted 100
[2020-12-09 23:22] LABS: Basophils % 0.1 % (0.0-0.8); Hematocrit 25.6 VOL% (42.0-52.0); Immature Granulocytes % 2.9 %; Immature Granulocytes Absolute 0.81 #; Lymphocytes # 0.6 10*3/uL (1.4-4.0); Lymphocytes % 1.9 % (21.2-54.2); Mean Corpuscular HGB Conc 31.3 GM/DL (32-36); Mean Corpuscular Volume 92.1 FL (87-102); Mean Platelet Volume 10.4 FL (9.6-12.0); Monocytes % 4.2 % (1.7-12.7); NRBC # 0.78 10*3/uL; Neutrophils % 90.9 % (38.7-73.9); Platelet Count 365 T/CUMM (130-400); Red Blood Count 2.78 MC/CUMM (3.8-5.5); Red Cell Distribution Width 16.5 % (9.3-17.3); White Blood Count 28.3 T/CUMM (4-12)
[2020-12-09 23:37] LABS: Calcium 7.1 MG/DL (8.5-10.1); Osmolality,Calculated 284.8 MOS/KG (273-304); Potassium 5.3 MMOL/L (3.5-5.1)
[2020-12-10] MEDS: NOREPINEPHRINE 16 MG in SODIUM CHLORIDE 0.9% 234 ML IV PRN ×3 (00:08→05:57)
[2020-12-10] MEDS: INSULIN REGULAR 100 UNIT/ML SUBCUT SCH ×2 (00:30→06:23)
[2020-12-10] MEDS: SODIUM BICARB INJ 150 MEQ in STERILE WATER INJ 1,000 ML IV SCH (00:31)
[2020-12-10] MEDS: PHENYLEPHRINE INJ 160 MG in SODIUM CHLORIDE 0.9% 234 ML IV PRN (01:11)
[2020-12-10 01:35] LABS: Lymphocytes 2 % (20-55); Myelocytes 1 %; Nucleated Red Blood Cells 1 (0-5); Segmented Neutrophils 93 % (50-85); Total Cells Counted 100
[2020-12-10 01:36] LABS: Hypochromasia 1+; Microcytosis 1+; Platelet Estimate Normal
[2020-12-10] MEDS: methylPREDNISolone SOD SUC 125 MG/2 ML VIAL IV SCH (01:42)
[2020-12-10] MEDS ORDERED: SODIUM BICARBONATE 50 MEQ/50 ML VIAL IV ONE ×5 (01:59→06:30)
[2020-12-10 02:05] LABS: ABG Base Excess -14.5 MMOL/L (-2.5-2.5); ABG HCO3 13.2 MMOL/L (20-26); ABG Oxygen Saturation 99.1 % (95-100); ABG TCO2 9.8 MMOL/L (23-27)
[2020-12-10] MEDS ORDERED: CALCIUM CHLORIDE 1,000 MG/10 ML SYRINGE IV ONE ×3 (02:06→02:12)
[2020-12-10 02:07] LABS: ABG PCO2 20.3 MM HG (35-48)
[2020-12-10 02:07] LABS: Basophils % 0.1 % (0.0-0.8); Hemoglobin 8.1 GM/DL (14.0-18.0); Immature Granulocytes % 2.9 %; Lymphocytes # 0.6 10*3/uL (1.4-4.0); Lymphocytes % 2.2 % (21.2-54.2); Mean Corpuscular HGB Conc 31.2 GM/DL (32-36); Mean Corpuscular Volume 92.9 FL (87-102); Mean Platelet Volume 10.4 FL (9.6-12.0); Monocytes % 4.7 % (1.7-12.7); NRBC # 1.04 10*3/uL; Neutrophils % 90.1 % (38.7-73.9); Platelet Count 346 T/CUMM (130-400); Red Cell Distribution Width 16.5 % (9.3-17.3); White Blood Count 27.9 T/CUMM (4-12)
[2020-12-10] MEDS: DEXTROSE 50% 25 GM/50 ML VIAL IV PRN ×2 (02:09→04:00)
[2020-12-10 02:21] LABS: Calcium 6.9 MG/DL (8.5-10.1); Osmolality,Calculated 277.2 MOS/KG (273-304); Potassium 5.8 MMOL/L (3.5-5.1)
[2020-12-10] MEDS ORDERED: SODIUM BICARB INJ 150 MEQ in STERILE WATER INJ 850 ML IV SCH (02:30)
[2020-12-10] MEDS ORDERED: ALBUMIN 5% 12.5 GM/250 ML VIAL IV ONE ×4 (02:34→05:27)
[2020-12-10] MEDS ORDERED: EPINEPHrine 1 MG/10 ML SYRINGE ONE (02:35)
[2020-12-10 02:36] LABS: Lymphocytes 4 % (20-55); Nucleated Red Blood Cells 3 (0-5); Segmented Neutrophils 93 % (50-85); Total Cells Counted 100
[2020-12-10] MEDS ORDERED: SODIUM POLYSTYRENE SULFATE 15 GM/60 ML BOTTLE PO ONE (02:48)
[2020-12-10 03:06] LABS: Hypochromasia 1+; Microcytosis 1+; Platelet Estimate Normal
[2020-12-10] MEDS ORDERED: ASPIRIN CHEW 81 MG TABLET PO ONE (04:17)
[2020-12-10 04:27] LABS: PT Patient Result 49.4 SECS (10.5-12.0)
[2020-12-10] MEDS ORDERED: HEPARIN DRIP 25,000 UNITS/500 ML PREMIX IV SCH (04:30)
[2020-12-10 04:59] LABS: ABG Base Excess -16.2 MMOL/L (-2.5-2.5); ABG Oxygen Saturation 99.6 % (95-100); ABG PCO2 21.6 MM HG (35-48); ABG PH 7.262 (7.35-7.45); ABG TCO2 9.2 MMOL/L (23-27)
[2020-12-10 05:04] LABS: Basophils % 0.1 % (0.0-0.8); Hematocrit 25.2 VOL% (42.0-52.0); Hemoglobin 7.7 GM/DL (14.0-18.0); Immature Granulocytes % 3.9 %; Immature Granulocytes Absolute 0.95 #; Lymphocytes # 0.5 10*3/uL (1.4-4.0); Mean Corpuscular HGB Conc 30.6 GM/DL (32-36); Mean Corpuscular Volume 96.2 FL (87-102); Mean Platelet Volume 10.9 FL (9.6-12.0); Monocytes % 5.2 % (1.7-12.7); NRBC # 1.54 10*3/uL; Neutrophils % 88.8 % (38.7-73.9); Platelet Count 320 T/CUMM (130-400); Red Blood Count 2.62 MC/CUMM (3.8-5.5); Red Cell Distribution Width 16.9 % (9.3-17.3); White Blood Count 24.6 T/CUMM (4-12)
[2020-12-10 05:27] LABS: Hypochromasia 1+; Lymphocytes 3 % (20-55); Microcytosis 1+; Nucleated Red Blood Cells 2 (0-5); Platelet Estimate Adequate; Segmented Neutrophils 95 % (50-85); Total Cells Counted 100
[2020-12-10 06:00] LABS: Albumin 2.3 G/DL (3.4-5.0); Bilirubin,Total 2.1 MG/DL (0.20-1.00); Calcium 7.4 MG/DL (8.5-10.1); Osmolality,Calculated 287.8 MOS/KG (273-304); Potassium 5.9 MMOL/L (3.5-5.1); Total Protein 5.2 G/DL (6.4-8.2)
[2020-12-10] MEDS ORDERED: SODIUM CHLORIDE 0.9% 250 ML IV ONE (06:06)
[2020-12-10 06:20] LABS: Albumin 2.2 G/DL (3.4-5.0); Bilirubin,Direct 1.23 MG/DL (0.0-0.20); Bilirubin,Indirect 1.2 MG/DL (0.0-1.0); Bilirubin,Total 2.4 MG/DL (0.20-1.00); Calcium 7.2 MG/DL (8.5-10.1); Osmolality,Calculated 284.1 MOS/KG (273-304); Potassium 5.9 MMOL/L (3.5-5.1); Total Protein 5.3 G/DL (6.4-8.2)
[2020-12-10] MEDS ORDERED: SODIUM BICARBONATE 50 MEQ/50 ML VIAL IV STA (06:34)
[2020-12-10] MEDS ORDERED: SODIUM CHLORIDE 0.9% 1,000 ML IV ONE (06:53)
== END 2020-12-10 08:32 | disposition expired | DRG 871 ==
LOC: N.ED 17:41 → N.ICU 12-09 00:14
PROVIDERS: ADMIT Internal Medicine; ATTEND Family Medicine